=== PATIENT | female | born 1940 | race Caucasian/White ===

== ENCOUNTER → 2016-12-01 | Outpatient (CLI) | payer MEDICARE, OTHER ==
[~2016-12-01] MED LIST: ALPR0.254 PO; ALPR0.5T72 PO; ASP325TEC; ASP81TEC PO; CARV12.5; CARV20CP PO; CARV25TA PO; CARV40CP PO; CHOL10003 PO; CRESTOR40 MG PO; CYAN10007 PO; ERGO400C; ERGO400C PO; EST.1TD; EST.1TD TD; EST.1TD TOP; FENO145T; FENO145T2 PO; HYDR-3583 PO; INSU100C SQ; LISI40TA PO; LVT.025T PO; LVT.05T PO; MAGN250T7 PO; MPR22T TP; OMEG-12 PO; OMG1KC; POLY17PO23 GT; ROSU20TA14 PO; SITA50TA PO; TELM40T PO; TELM80TA5 PO; TRAM-21 PO; [UNRECOGNIZED DRUG - CODE]; [UNRECOGNIZED DRUG - OTHER]
--- NOTE | 2016-12-02 15:39 | Diagnostic Imaging Report ---
Bilateral screening mammogram 2D views with tomosynthesis. The current study was also evaluated with a Computer Aided Detection (CAD) system. INDICATION: Screening. No current complaints stated on the questionnaire. COMPARISON: 09/23/15. FINDINGS: The breasts are composed of heterogeneously dense parenchyma which may decrease mammographic sensitivity. There are benign-appearing calcifications seen. Allowing for technique and positional differences, no suspicious change is seen. IMPRESSION: No significant change. ACR BI-RADS Category 2: Benign findings. Result letter will be mailed to the patient. Note: At least 10% of breast cancer is not imaged by mammography. Dictated by: Dictated on workstation # [id number]
== END ==
LOC: RAD 09:31
PROVIDERS: ATTEND Nurse Practitioner Family
DX: Z12.31 Encounter for screening mammogram for malignant neoplasm of breast (principal)
CPT/HCPCS: 77067

== ENCOUNTER → 2017-06-11 | Outpatient (CLI) | payer MEDICARE, OTHER ==
--- NOTE | 2017-06-11 11:00 | Diagnostic Imaging Report ---
INDICATION: Back pain, falls. FINDINGS: Thoracic vertebral body heights are maintained, the alignment is anatomic. The marrow signal intensity unremarkable. The thoracic spinal cord has a normal volume, morphology, and signal intensity. Spinal canal is widely patent at all vertebral body and disc space levels. No paravertebral mass, hemorrhage or fluid collection. No evidence for ligamentous injury. Discs are well-hydrated and nondisplaced. IMPRESSION: Unremarkable MRI thoracic spine. Normal cord. There is no stenosis and there is no significant degenerative changes. Dictated by: Dictated on workstation # [id number]
--- NOTE | 2017-06-11 11:24 | Diagnostic Imaging Report ---
PROCEDURE: MRI lumbar spine. TECHNIQUE: Multiplanar, multisequence MRI of the lumbar spine was performed without contrast. INDICATION: Low back pain. History of falls and prior lumbar surgery. COMPARISON is made with a previous MRI from 12/11/2015 FINDINGS: When compared to the previous examination, the patient has undergone interval posterior lumbar interbody fusions of L4-5 and L5-S1. The interbody graft at the L5-S1 level is slightly posteriorly and laterally positioned and may extend into the right lateral recess. This would be better assessed with CT imaging. Alignment of the lumbar spine demonstrates a slight anterolisthesis of L4 on 5. Alignment is otherwise normal. The vertebral body heights are maintained. There is no focal marrow signal abnormality to suggest acute osseous injury or underlying osseous lesion. The lower thoracic cord demonstrates no signal abnormality or abnormal expansion. The conus terminates at the normal level. There is no significant lower thoracic canal stenosis. T12-L1 and L1-2 are unremarkable. At L2-3, there is very mild disc bulging. There is facet arthropathy and ligamentous thickening with minimal narrowing of the thecal sac and very slight effacement of the lateral recesses. There is mild narrowing of both neural foramen. At the L3-4 level, there is diffuse disc bulging. Facet arthropathy and ligamentous thickening are present. There is a small left-sided synovial cyst. There is moderate narrowing of the central canal and lateral recesses. There is mild narrowing of both neural foramen. At the L4-5 level, there is residual, left greater than right facet arthropathy and ligamentous thickening. There is mild narrowing of the central canal. There is [id number] left lateral recess stenosis. There is no significant foraminal stenosis. At the L5-S1 level, the right lateral recess is poorly visualized and appears to possibly be impinged upon by the interbody graft. There is no significant left lateral recess or central canal stenosis. There is moderate right and mild left neural foraminal stenosis. Paraspinal soft tissues demonstrate a small degree of a postoperative fluid in the right laminectomy bed at L5-S1. The aorta is normal in caliber. IMPRESSION: 1. Interval operative changes of posterior lumbar interbody fusions at L4-5 and L5-S1. There is a question of some posterior subsidence in the interbody graft at the L5-S1 level. Evaluation of the interbody grafts and their incorporation would be better assessed with CT imaging. This graft may impinge on the right lateral recess. 2. Grade 1 anterolisthesis of L4 on 5. Alignment is otherwise normal. There is no acute osseous abnormality. 3. There are developing adjacent level degenerative changes at L3-4. There is moderate narrowing of the central canal and lateral recesses. 4. Other degrees of stenosis within the lumbar spine are each detailed above, level by level. Dictated by: Dictated on workstation # [id number]
== END ==
LOC: RAD 09:22
PROVIDERS: ATTEND Neurological Surgery
DX: M48.07 Spinal stenosis, lumbosacral region (principal); M51.26 Other intervertebral disc displacement, lumbar region; M46.96 Unspecified inflammatory spondylopathy, lumbar region; M71.38 Other bursal cyst, other site; M47.816 Spondylosis without myelopathy or radiculopathy, lumbar region; M43.16 Spondylolisthesis, lumbar region; Z91.81 History of falling; Z98.1 Arthrodesis status
CPT/HCPCS: 72146; 72148

== ENCOUNTER → 2017-11-25 | Outpatient (CLI) | payer MEDICARE, OTHER ==
--- NOTE | 2017-11-25 11:48 | Diagnostic Imaging Report ---
INDICATION: Routine screening. COMPARISON: 12/01/2016 and 09/23/2015. TECHNIQUE: 2D and 3D bilateral screening mammography was performed with CAD. FINDINGS: Both breasts are heterogeneously dense, limiting the sensitivity of mammography. There are benign-appearing parenchymal and vascular calcifications bilaterally. No dominant mass or malignant appearing microcalcifications are seen. The axillae are unremarkable. IMPRESSION: No mammographic features suspicious for malignancy are identified. ACR BI-RADS Category 2: Benign findings. Result letter will be mailed to the patient. Note: At least 10% of breast cancer is not imaged by mammography. Dictated by: Dictated on workstation # [id number]
== END ==
LOC: RAD 08:54
PROVIDERS: ATTEND Family Medicine
DX: Z12.31 Encounter for screening mammogram for malignant neoplasm of breast (principal)
CPT/HCPCS: 77067

== ENCOUNTER 2018-11-03 13:19 | Emergency (ER) | payer MEDICARE, OTHER ==
[~2018-11-03] VITALS: Ht 157.5 cm; Wt 48.1 kg
[~2018-11-03 13:19] MED LIST changes: -RIVA15TA2 PO; -RIVA20TA PO
--- OUTSIDE RECORDS SUMMARY | 2018-11-03 13:25 | XMS REPORT | CCD ---
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 Name Role Phone PP Unavailable CCM Unavailable Summary Purpose Interface Exchange Insurance Providers Payer name Policy type / Coverage type Covered alliance party ID Effective Begin Date Effective End Date [employer] Medicare Part B [id number] Unknown Unknown WPS Medicare Part B Medicare Part B [id number] Unknown Unknown Family history Mother Diagnosis Age At Onset Heart Attack Unknown Son Diagnosis Age At Onset Cancer Unknown Social History Social History Element Codes Description Effective Dates Number of children Unknown 2 12/12/[address]: 529319706 Never smoker 12/12/[address]: 504873787 Never drinks alcohol 12/12/2014 Allergies, Adverse Reactions, Alerts Allergies, Adverse Reactions, Alerts data not found Past Medical History Illness Codes Condition Status Onset Date Resolved Date Anemia, unspecified ICD- 9: 285.9 ICD-10: D64.9 Active 11/23/2016 Unknown Encounter for screening mammogram for malignant neoplasm of breast ICD-9: V76.10 ICD-10: Z12.31 Active 11/18/2016 Unknown Essential (primary) hypertension ICD-9: 401.9 ICD-10: I10 Active 01/04/2016 Unknown Hypothyroidism, unspecified ICD-9: 244.9 ICD-10: E03.9 Active 01/04/2016 Unknown Type 2 diabetes mellitus with hyperglycemia ICD-9: 250.00 ICD-10: E11.65 Active 12/11/2014 Unknown Encounter for immunization ICD-9: V03.9 ICD-10: Z23 Active 01/04/2016 Unknown Encounter for screening mammogram for malignant neoplasm of breast ICD-9: V76.12 ICD-10: Z12.31 Active 09/11/2015 Unknown Hyperlipidemia, unspecified ICD-9: 272.4 ICD-10: E78.5 Active 09/11/2015 Unknown Major depressive disorder, single episode, unspecified ICD-9: 311 ICD-10: F32.9 Active 08/13/2015 Unknown Dysuria ICD-9: 788.1 ICD-10: R30.0 Active 07/30/2015 Unknown Depression Unknown Active 07/03/2015 Unknown Hyperlipidemia Unknown Active 06/26/2015 Unknown Hypertension Unknown Active 06/26/2015 Unknown Hypothryroidism Unknown Active 06/26/2015 Unknown Diabetes Unknown Active 12/12/2014 Unknown Diabetes mellitus ICD-9: 250.00 Active 12/11/2014 Unknown Insomnia ICD-9: 780.52 Active 12/11/2014 Unknown Right shoulder pain ICD- 9: 719.41 Active 12/11/2014 Unknown Sinus congestion ICD-9: 478.19 Active 12/11/2014 Unknown Problems Condition Codes Effective Dates Condition Status Anemia, unspecified ICD- 9: 285.9 ICD-10: D64.9 11/23/2016 Active Encounter for screening mammogram for malignant neoplasm of breast ICD-9: V76.10 ICD-10: Z12.31 11/18/2016 Active Essential (primary) hypertension ICD-9: 401.9 ICD-10: I10 01/04/2016 Active Hypothyroidism, unspecified ICD-9: 244.9 ICD-10: E03.9 01/04/2016 Active Type 2 diabetes mellitus with hyperglycemia ICD-9: 250.00 ICD-10: E11.65 12/11/2014 Active Encounter for immunization ICD-9: V03.9 ICD-10: Z23 01/04/2016 Active Encounter for screening mammogram for malignant neoplasm of breast ICD-9: V76.12 ICD-10: Z12.31 09/11/2015 Active Hyperlipidemia, unspecified ICD-9: 272.4 ICD-10: E78.5 09/11/2015 Active Major depressive disorder, single episode, unspecified ICD-9: 311 ICD-10: F32.9 08/13/2015 Active Dysuria ICD-9: 788.1 ICD-10: R30.0 07/30/2015 Active Depression Unknown 07/03/2015 Active Hyperlipidemia Unknown 06/26/2015 Active Hypertension Unknown 06/26/2015 Active Hypothryroidism Unknown 06/26/2015 Active Diabetes Unknown 12/12/2014 Active Diabetes mellitus ICD-9: 250.00 12/11/2014 Active Insomnia ICD-9: 780.52 12/11/2014 Active Right shoulder pain ICD- 9: 719.41 12/11/2014 Active Sinus congestion ICD-9: 478.19 12/11/2014 Active Medications Medication Codes Instructions Start Date Stop Date Status Fill Instructions glipizide 5 mg tablet RxNorm: 582986 1/2 Tablet(s) PO daily 11/18/2016 No Stop Date Active Synthroid 50 mcg tablet RxNorm: 654712 1 Tablet(s) PO daily 11/18/2016 11/12/2017 Active Lexapro 5 mg tablet RxNorm: 583572 TAKE 1 TABLET EVERY EVENING 08/03/2016 11/17/2016 Inactive alprazolam 0.5 mg tablet RxNorm: 671549 1 Tablet(s) PO BID as needed 04/12/2016 10/08/2016 Inactive Synthroid 50 mcg tablet RxNorm: 262370 1 Tablet(s) PO daily 04/12/2016 11/17/2016 Inactive Synthroid 50 mcg tablet RxNorm: 640081 1 Tablet(s) PO daily 04/09/2016 04/11/2016 Inactive Synthroid 50 mcg tablet RxNorm: 531906 1 Tablet(s) PO daily 01/05/2016 04/08/2016 Inactive Synthroid 50 mcg tablet RxNorm: 345467 1 Tablet(s) PO daily 01/05/2016 01/04/2016 Inactive alprazolam 0.5 mg tablet RxNorm: 594792 1 Tablet(s) PO BID as needed 01/05/2016 04/03/2016 Inactive alprazolam 0.5 mg tablet RxNorm: 979104 1 Tablet(s) PO BID as needed 09/12/2015 12/10/2015 Inactive Humalog 100 unit/mL subcutaneous solution RxNorm: 642352 Unit(s) SQ PRN 09/12/2015 12/11/2015 Inactive alprazolam 0.5 mg tablet RxNorm: 504695 1 Tablet(s) PO BID as needed 08/14/2015 09/11/2015 Inactive Cymbalta 30 mg capsule,delayed release RxNorm: 724205 1 Capsule(s) PO daily 08/14/2015 09/11/2015 Inactive Cymbalta 30 mg capsule,delayed release RxNorm: 492116 1 Capsule(s) PO daily 07/31/2015 08/13/2015 Inactive Trulicity 0.75 mg/0.5 mL subcutaneous pen injector RxNorm: 3472327 1/2 Milliliter(s) SQ QW 07/03/2015 08/13/2015 Inactive Synthroid 50 mcg tablet RxNorm: 834918 1 Tablet(s) PO daily 07/03/2015 01/04/2016 Inactive Lexapro 5 mg tablet RxNorm: 029154 1 Tablet(s) PO QPM 07/03/2015 08/13/2015 Inactive Climara 0.05 mg/24 hr transdermal patch RxNorm: 525946 1 Patch TD QW 07/03/2015 11/17/2016 Inactive Climara 0.05 mg/24 hr transdermal patch RxNorm: 845813 1 Patch TD QW 06/26/2015 06/25/2015 Inactive Climara 0.05 mg/24 hr transdermal patch RxNorm: 589114 1 Patch TD QW 06/26/2015 07/02/2015 Inactive metoprolol succinate ER 25 mg tablet,extended release 24 hr RxNorm: 027142 1 Tablet(s) PO daily 06/26/2015 06/26/2015 Inactive Humalog 100 unit/mL subcutaneous solution RxNorm: 738199 Unit(s) SQ PRN 02/03/2015 07/02/2015 Inactive Remeron 15 mg tablet RxNorm: 969770 1/2 Tablet(s) PO QHS 12/23/2014 06/25/2015 Inactive no refilled- direction change Remeron 15 mg tablet RxNorm: 566075 1 Tablet(s) PO QHS 12/18/2014 12/17/2014 Inactive Remeron 15 mg tablet RxNorm: 804370 1 Tablet(s) PO QHS 12/18/2014 12/22/2014 Inactive Flonase Allergy Relief 50 mcg/actuation nasal spray,suspension RxNorm: 2 [place] NASAL daily 12/12/2014 03/11/2015 Inactive aspirin 81 mg tablet RxNorm: 606915 1 Tablet(s) PO daily No Start Date Active fenofibrate nanocrystallized 145 mg tablet RxNorm: 461196 1 Tablet(s) PO daily No Start Date Active Coreg CR 20 mg capsule, extended release RxNorm: 256607 1 Capsule(s) PO daily No Start Date Active amlodipine 5 mg tablet RxNorm: 519317 1 Tablet(s) PO daily No Start Date Active lisinopril 40 mg tablet RxNorm: 654972 1 Tablet(s) PO daily No Start Date Active Crestor 20 mg tablet RxNorm: 951396 1 Tablet(s) PO daily No Start Date Active spironolactone 25 mg tablet RxNorm: 090205 1 Tablet(s) PO PRN No Start Date 12/13/2014 Inactive telmisartan 80 mg tablet RxNorm: 986652 1 Tablet(s) PO daily No Start Date 11/17/2016 Inactive Humalog 100 unit/mL subcutaneous solution RxNorm: 461135 Unit(s) SQ PRN No Start Date 02/02/2015 Inactive alprazolam 0.5 mg tablet RxNorm: 524399 1 Tablet(s) PO TID as needed No Start Date 08/13/2015 Inactive glipizide ER 2.5 mg tablet, extended release 24 hr RxNorm: 425259 1 Tablet(s) PO daily No Start Date 01/04/2016 Inactive Vitamin B-12 1,000 mcg/mL oral drops RxNorm: 9489778 1 Milliliter(s) PO daily Start once patient runs out of the 1,000 mcg tabs. No Start Date 11/17/2016 Inactive gabapentin 300 mg capsule RxNorm: 892359 1 Capsule(s) PO BID No Start Date 11/17/2016 Inactive meloxicam 15 mg tablet RxNorm: 952598 1 Tablet(s) PO BID No Start Date 07/30/2015 Inactive Coreg CR 20 mg capsule, extended release RxNorm: 704003 1 Capsule(s) PO daily No Start Date 06/25/2015 Inactive Climara 0.1 mg/24 hr transdermal patch RxNorm: 088724 1 TD QW No Start Date 06/25/2015 Inactive levothyroxine 50 mcg tablet RxNorm: 898548 1 Tablet(s) PO daily No Start Date 07/03/2015 Inactive Vitamin D2 1,000 unit capsule RxNorm: 287149 1 Capsule(s) PO daily No Start Date 11/17/2016 Inactive Fish Oil 1,000 mg capsule RxNorm: 1 Capsule(s) PO daily No Start Date 11/17/2016 Inactive glipizide 5 mg tablet RxNorm: 872008 1 Tablet(s) PO daily No Start Date 11/17/2016 Inactive Medication Administered No Medication Administered data Immunizations Vaccine Codes Date Status Pneumococcal (Adult) CVX: 133 01/05/2016 completed Influenza CVX: 141 02/06/2014 completed Assessments Condition Codes Effective Dates Anemia, unspecified ICD-10: D64.9 ICD-9: 285.9 11/23/2016 Type 2 diabetes mellitus with hyperglycemia ICD-10: E11.65 ICD-9: 250.00 11/18/2016 Hypothyroidism, unspecified ICD-10: E03.9 ICD-9: 244.9 11/18/2016 Essential (primary) hypertension ICD-10: I10 ICD-9: 401.9 11/18/2016 Encounter for screening mammogram for malignant neoplasm of breast ICD-10: Z12.31 ICD-9: V76.10 11/18/2016 Encounter for immunization ICD-10: Z23 ICD-9: V03.9 01/05/2016 Hyperlipidemia, unspecified ICD-10: E78.5 ICD-9: 272.4 09/12/2015 Encounter for screening mammogram for malignant neoplasm of breast ICD-10: Z12.31 ICD-9: V76.12 09/12/2015 Major depressive disorder, single episode, unspecified ICD-10: F32.9 ICD-9: 311 08/14/2015 Dysuria ICD-10: R30.0 ICD-9: 788.1 07/31/2015 Sinus congestion ICD-9: 478.19 12/12/2014 Diabetes mellitus ICD-9: 250.00 12/12/2014 Insomnia ICD-9: 780.52 12/12/2014 Right shoulder pain ICD-9: 719.41 12/12/2014 Reason For Visit Reason For Visit Effective Dates Notes diabetes mellitus 11/18/2016 diabetes mellitus 01/05/2016 diabetes mellitus 09/12/2015 medication follow up 08/14/2015 dysuria 07/31/2015 hyperlipidemia 07/03/2015 hyperlipidemia 06/26/2015 insomnia 12/12/2014 Results Observation Observation Code Item Item Code Result Date Ferritin Ord22 FERRITIN 58.6 ng/mL 11/23/2016 Tibc Ord40 Iron 92 ug/dl 11/23/2016 Tibc Ord40 UIBC 294 ug/dL 11/23/2016 Tibc Ord40 TIBC 386 ug/dL 11/23/2016 Tibc Ord40 Fe-%Sat 23.8 % 11/23/2016 B12 Osd024 B12 232.00 pg/ml 11/23/2016 Comp Metabolic Gdr710 NA 144 mEq/L 11/22/2016 Comp Metabolic Dyq135 K 4.8 mEq/L 11/22/2016 Comp Metabolic Cas249 CL 111 mEq/L 11/22/2016 Comp Metabolic Xpu263 CO2 26.0 mEq/L 11/22/2016 Comp Metabolic Cnk470 ANION GAP 12 11/22/2016 Comp Metabolic Tey199 GLUCOSE 111 mg/dL 11/22/2016 Comp Metabolic Dkv183 Creat 1.3 mg/dL 11/22/2016 Comp Metabolic Dcc870 eGFR 41 ml/min/1.73m2 11/22/2016 Comp Metabolic Dth218 BUN 38 mg/dL 11/22/2016 Comp Metabolic Mvj514 B/C Ratio 28.4 Ratio 11/22/2016 Comp Metabolic Mdo459 CALCIUM 10.0 mg/dL 11/22/2016 Comp Metabolic Lno518 ALK PHOS 43 U/L 11/22/2016 Comp Metabolic Ijy729 AST(SGOT) 10 U/L 11/22/2016 Comp Metabolic Fpr181 ALT(SGPT) 11 U/L 11/22/2016 Comp Metabolic Gmf661 BILI T 0.3 mg/dL 11/22/2016 Comp Metabolic Kjv710 ALBUMIN 3.8 g/dL 11/22/2016 Comp Metabolic Anz938 TPRO 6.1 g/dL 11/22/2016 Comp Metabolic Kip841 GLOB 2.3 g/dL 11/22/2016 Comp Metabolic Zgo686 A/G Ratio 1.7 Ratio 11/22/2016 Comp Metabolic Aim684 Osmo 297 mOsmo 11/22/2016 Cbc With Differential Ord2 WBC 5.20 K/ul 11/22/2016 Cbc With Differential Ord2 RBC 3.51 M/ul 11/22/2016 Cbc With Differential Ord2 HGB 11.1 g/dl 11/22/2016 Cbc With Differential Ord2 Neut% 34.2 % 11/22/2016 Cbc With Differential Ord2 HCT 34.9 % 11/22/2016 Cbc With Differential Ord2 Lymph% 47.3 % 11/22/2016 Cbc With Differential Ord2 MCV 99.4 fl 11/22/2016 Cbc With Differential Ord2 MCH 31.6 pg 11/22/2016 Cbc With Differential Ord2 Brooks% 10.4 % 11/22/2016 Cbc With Differential Ord2 Eos% 7.3 % 11/22/2016 Cbc With Differential Ord2 MCHC 31.8 pg 11/22/2016 Cbc With Differential Ord2 Baso% 0.8 % 11/22/2016 Cbc With Differential Ord2 PLT 313 K/ul 11/22/2016 Cbc With Differential Ord2 RDW 13.2 % 11/22/2016 Cbc With Differential Ord2 Neut ABS# 1.78 K/ul 11/22/2016 Cbc With Differential Ord2 Lymph ABS# 2.46 K/ul 11/22/2016 Cbc With Differential Ord2 Brooks ABS# 0.5 K/ul 11/22/2016 Cbc With Differential Ord2 Eos ABS# 0.4 K/ul 11/22/2016 Cbc With Differential Ord2 Baso ABS# 0.0 K/ul 11/22/2016 Lipid Ord30 CHOL 153 mg/dL 11/22/2016 Lipid Ord30 HDL 46.0 mg/dl 11/22/2016 Lipid Ord30 TRIG 150 mg/dL 11/22/2016 Lipid Ord30 LDL 77 mg/dL 11/22/2016 Lipid Ord30 C/HDL 3.3 Ratio 11/22/2016 %Hba1C Cdl747 % HbA1c 90309- 6 6.7 % 11/22/2016 %Hba1C Smi733 Gluc Ave 146 mg/dL 11/22/2016 Tsh Ord6 hTSH II 1.84 uIU/mL 11/22/2016 Free T4 Dlg391 FREE T4 1.00 ng/dL 11/22/2016 %Hba1C Ovc876 % HbA1c 38860- 6 7.3 % 09/24/2015 %Hba1C Urz104 Gluc Ave 163 mg/dL 09/24/2015 Cbc With Differential Ord2 WBC 6.31 K/ul 09/24/2015 Cbc With Differential Ord2 RBC 3.54 M/ul 09/24/2015 Cbc With Differential Ord2 HGB 11.2 g/dl 09/24/2015 Cbc With Differential Ord2 Neut% 40.2 % 09/24/2015 Cbc With Differential Ord2 HCT 34.9 % 09/24/2015 Cbc With Differential Ord2 MCV 98.6 fl 09/24/2015 Cbc With Differential Ord2 Lymph% 42.2 % 09/24/2015 Cbc With Differential Ord2 MCH 31.6 pg 09/24/2015 Cbc With Differential Ord2 Brooks% 10.1 % 09/24/2015 Cbc With Differential Ord2 MCHC 32.1 pg 09/24/2015 Cbc With Differential Ord2 Eos% 6.5 % 09/24/2015 Cbc With Differential Ord2 PLT 314 K/ul 09/24/2015 Cbc With Differential Ord2 Baso% 1.0 % 09/24/2015 Cbc With Differential Ord2 RDW 13.2 % 09/24/2015 Cbc With Differential Ord2 Neut ABS# 2.54 K/ul 09/24/2015 Cbc With Differential Ord2 Lymph ABS# 2.66 K/ul 09/24/2015 Cbc With Differential Ord2 Brooks ABS# 0.6 K/ul 09/24/2015 Cbc With Differential Ord2 Eos ABS# 0.4 K/ul 09/24/2015 Cbc With Differential Ord2 Baso ABS# 0.1 K/ul 09/24/2015 Cbc With Differential Ord2 New Analyzer Notice Please note new ref ranges starting 05-21-2015 due to implemntation of new five part differential hematolgy analyzer. 09/24/2015 Metabolic Ord15 NA 138 mEq/L 09/24/2015 Metabolic Ord15 K 4.6 mEq/L 09/24/2015 Metabolic Ord15 CL 105 mEq/L 09/24/2015 Metabolic Ord15 CO2 28.0 mEq/L 09/24/2015 Metabolic Ord15 GLUCOSE 130 mg/dL 09/24/2015 Metabolic Ord15 BUN 31 mg/dL 09/24/2015 Metabolic Ord15 Creat 1.2 mg/dL 09/24/2015 Metabolic Ord15 B/C Ratio 26.7 Ratio 09/24/2015 Metabolic Ord15 eGFR 48 ml/min/1.73m2 09/24/2015 Metabolic Ord15 Osmo 284 mOsmo 09/24/2015 Metabolic Ord15 ANION GAP 10 09/24/2015 Metabolic Ord15 CALCIUM 9.8 mg/dL 09/24/2015 Lipid Ord30 CHOL 177 mg/dL 09/12/2015 Lipid Ord30 HDL 56.0 mg/dl 09/12/2015 Lipid Ord30 TRIG 132 mg/dL 09/12/2015 Lipid Ord30 LDL 95 mg/dL 09/12/2015 Lipid Ord30 C/HDL 3.2 Ratio 09/12/2015 Hepatic Qcs821 ALBUMIN 4.2 g/dL 09/12/2015 Hepatic Kwu367 TPRO 6.5 g/dL 09/12/2015 Hepatic Izm629 GLOB 2.3 g/dL 09/12/2015 Hepatic Ydv119 A/G Ratio 1.8 Ratio 09/12/2015 Hepatic Prq794 ALK PHOS 33 U/L 09/12/2015 Hepatic Edv121 ALT(SGPT) 27 U/L 09/12/2015 Hepatic Fbn329 AST(SGOT) 14 U/L 09/12/2015 Hepatic Vvk275 BILI T 0.3 mg/dL 09/12/2015 Hepatic Idk256 BILI D 0.1 mg/dL 09/12/2015 Hepatic Bab211 BILI I 0.2 mg/dL 09/12/2015 Review of Systems System Result Effective Dates Musculoskeletal back pain 11/18/2016 Constitutional No recent illness 11/18/2016 Constitutional anorexia 11/18/2016 Constitutional No night sweats 11/18/2016 Constitutional No chills 11/18/2016 Constitutional No diaphoresis 11/18/2016 Constitutional No fatigue 11/18/2016 Constitutional No fever 11/18/2016 Constitutional No insomnia 11/18/2016 Constitutional No malaise 11/18/2016 Constitutional No weight loss 11/18/2016 Constitutional No weight gain 11/18/2016 Eyes No eye discharge 11/18/2016 Eyes No eye erythema 11/18/2016 Ears/Nose/Throat/Neck No dizziness 11/18/2016 Ears/Nose/Throat/Neck No headache 11/18/2016 Cardiovascular No chest pain/pressure 11/18/2016 Respiratory No productive sputum 11/18/2016 Respiratory No cough 11/18/2016 Gastrointestinal No abdominal pain 11/18/2016 Gastrointestinal No constipation 11/18/2016 Gastrointestinal No diarrhea 11/18/2016 Genitourinary/Nephrology No dysuria 11/18/2016 Dermatologic No rash 11/18/2016 Neurologic No alteration of consciousness 11/18/2016 Constitutional No recent illness 01/05/2016 Constitutional No anorexia 01/05/2016 Constitutional No night sweats 01/05/2016 Constitutional No chills 01/05/2016 Constitutional No fatigue 01/05/2016 Constitutional No diaphoresis 01/05/2016 Constitutional No fever 01/05/2016 Constitutional No insomnia 01/05/2016 Constitutional No malaise 01/05/2016 Constitutional No weight loss 01/05/2016 Musculoskeletal back pain 01/05/2016 Eyes No eye discharge 01/05/2016 Eyes No eye erythema 01/05/2016 Ears/Nose/Throat/Neck No dizziness 01/05/2016 Ears/Nose/Throat/Neck No headache 01/05/2016 Cardiovascular No chest pain/pressure 01/05/2016 Cardiovascular No edema 01/05/2016 Respiratory No productive sputum 01/05/2016 Respiratory No cough 01/05/2016 Gastrointestinal No abdominal pain 01/05/2016 Gastrointestinal No constipation 01/05/2016 Gastrointestinal No diarrhea 01/05/2016 Genitourinary/Nephrology No dysuria 01/05/2016 Dermatologic No rash 01/05/2016 Dermatologic No sores 01/05/2016 Neurologic No alteration of consciousness 01/05/2016 Psychiatric depression 01/05/2016 Endocrine No dry or coarse skin 01/05/2016 Constitutional No recent illness 09/12/2015 Constitutional No anorexia 09/12/2015 Constitutional No night sweats 09/12/2015 Constitutional No chills 09/12/2015 Constitutional No diaphoresis 09/12/2015 Constitutional fatigue 09/12/2015 Constitutional No fever 09/12/2015 Constitutional No insomnia 09/12/2015 Constitutional No malaise 09/12/2015 Constitutional No weight loss 09/12/2015 Constitutional No weight gain 09/12/2015 Constitutional No obesity 09/12/2015 Ears/Nose/Throat/Neck No headache 09/12/2015 Ears/Nose/Throat/Neck No nasal allergies 09/12/2015 Ears/Nose/Throat/Neck No nasal discharge 09/12/2015 Ears/Nose/Throat/Neck No otalgia 09/12/2015 Ears/Nose/Throat/Neck No otitis media 09/12/2015 Cardiovascular No chest pain/pressure 09/12/2015 Respiratory No chest congestion 09/12/2015 Respiratory No chest tightness 09/12/2015 Respiratory No cigarette smoking 09/12/2015 Respiratory No cough 09/12/2015 Respiratory No dyspnea on exertion 09/12/2015 Respiratory No dyspnea 09/12/2015 Gastrointestinal No constipation 09/12/2015 Gastrointestinal No diarrhea 09/12/2015 Genitourinary/Nephrology No dysuria 09/12/2015 Genitourinary/Nephrology No flank pain 09/12/2015 Genitourinary/Nephrology No hematuria 09/12/2015 Musculoskeletal No joint complaint 09/12/2015 Musculoskeletal No muscle weakness 09/12/2015 Musculoskeletal No myalgias 09/12/2015 Dermatologic No rash 09/12/2015 Dermatologic No sores 09/12/2015 Psychiatric anxiety 09/12/2015 Psychiatric depression 09/12/2015 Constitutional No recent illness 08/14/2015 Constitutional No anorexia 08/14/2015 Constitutional No night sweats 08/14/2015 Constitutional No chills 08/14/2015 Constitutional No diaphoresis 08/14/2015 Constitutional fatigue 08/14/2015 Constitutional No fever 08/14/2015 Constitutional No insomnia 08/14/2015 Constitutional No malaise 08/14/2015 Constitutional No weight loss 08/14/2015 Constitutional No weight gain 08/14/2015 Constitutional No obesity 08/14/2015 Ears/Nose/Throat/Neck No headache 08/14/2015 Ears/Nose/Throat/Neck No nasal allergies 08/14/2015 Ears/Nose/Throat/Neck No nasal discharge 08/14/2015 Ears/Nose/Throat/Neck No otalgia 08/14/2015 Ears/Nose/Throat/Neck No otitis media 08/14/2015 Cardiovascular No chest pain/pressure 08/14/2015 Respiratory No chest congestion 08/14/2015 Respiratory No chest tightness 08/14/2015 Respiratory No cigarette smoking 08/14/2015 Respiratory No cough 08/14/2015 Respiratory No dyspnea on exertion 08/14/2015 Respiratory No dyspnea 08/14/2015 Gastrointestinal No constipation 08/14/2015 Gastrointestinal No diarrhea 08/14/2015 Genitourinary/Nephrology No dysuria 08/14/2015 Genitourinary/Nephrology No flank pain 08/14/2015 Genitourinary/Nephrology No hematuria 08/14/2015 Musculoskeletal No joint complaint 08/14/2015 Musculoskeletal No muscle weakness 08/14/2015 Musculoskeletal No myalgias 08/14/2015 Dermatologic No rash 08/14/2015 Dermatologic No sores 08/14/2015 Psychiatric anxiety 08/14/2015 Psychiatric depression 08/14/2015 Constitutional No recent illness 07/31/2015 Constitutional No anorexia 07/31/2015 Constitutional No night sweats 07/31/2015 Constitutional No chills 07/31/2015 Constitutional No diaphoresis 07/31/2015 Constitutional fatigue 07/31/2015 Constitutional No fever 07/31/2015 Constitutional No insomnia 07/31/2015 Constitutional No malaise 07/31/2015 Constitutional No weight loss 07/31/2015 Constitutional No weight gain 07/31/2015 Constitutional No obesity 07/31/2015 Genitourinary/Nephrology dysuria 07/31/2015 Genitourinary/Nephrology No flank pain 07/31/2015 Genitourinary/Nephrology No hematuria 07/31/2015 Gastrointestinal No constipation 07/31/2015 Gastrointestinal No diarrhea 07/31/2015 Respiratory No cigarette smoking 07/31/2015 Respiratory No cough 07/31/2015 Respiratory No chest tightness 07/31/2015 Respiratory No chest congestion 07/31/2015 Respiratory No dyspnea on exertion 07/31/2015 Respiratory No dyspnea 07/31/2015 Cardiovascular No chest pain/pressure 07/31/2015 Ears/Nose/Throat/Neck No nasal discharge 07/31/2015 Ears/Nose/Throat/Neck No nasal allergies 07/31/2015 Ears/Nose/Throat/Neck No headache 07/31/2015 Ears/Nose/Throat/Neck No otitis media 07/31/2015 Ears/Nose/Throat/Neck No otalgia 07/31/2015 Eyes vision change 07/31/2015 Musculoskeletal No joint complaint 07/31/2015 Musculoskeletal No muscle weakness 07/31/2015 Musculoskeletal No myalgias 07/31/2015 Dermatologic No sores 07/31/2015 Dermatologic No rash 07/31/2015 Psychiatric anxiety 07/31/2015 Psychiatric depression 07/31/2015 Constitutional No recent illness 07/03/2015 Constitutional No anorexia 07/03/2015 Constitutional No night sweats 07/03/2015 Constitutional No chills 07/03/2015 Constitutional No diaphoresis 07/03/2015 Constitutional No fatigue 07/03/2015 Constitutional No fever 07/03/2015 Constitutional No insomnia 07/03/2015 Constitutional No malaise 07/03/2015 Constitutional No weight loss 07/03/2015 Constitutional No weight gain 07/03/2015 Constitutional No obesity 07/03/2015 Eyes No eye discharge 07/03/2015 Eyes No eye erythema 07/03/2015 Psychiatric depression 07/03/2015 Psychiatric anxiety 07/03/2015 Neurologic No alteration of consciousness 07/03/2015 Dermatologic No rash 07/03/2015 Musculoskeletal back pain 07/03/2015 Genitourinary/Nephrology No dysuria 07/03/2015 Gastrointestinal No abdominal pain 07/03/2015 Respiratory No cough 07/03/2015 Cardiovascular No chest pain/pressure 07/03/2015 Ears/Nose/Throat/Neck No dizziness 07/03/2015 Constitutional No recent illness 06/26/2015 Constitutional No anorexia 06/26/2015 Constitutional No night sweats 06/26/2015 Constitutional No chills 06/26/2015 Constitutional No diaphoresis 06/26/2015 Constitutional No fatigue 06/26/2015 Constitutional No fever 06/26/2015 Constitutional No insomnia 06/26/2015 Constitutional No malaise 06/26/2015 Constitutional No weight loss 06/26/2015 Constitutional No weight gain 06/26/2015 Eyes No eye discharge 06/26/2015 Eyes No eye erythema 06/26/2015 Ears/Nose/Throat/Neck No dizziness 06/26/2015 Ears/Nose/Throat/Neck No headache 06/26/2015 Cardiovascular No chest pain/pressure 06/26/2015 Cardiovascular No dyspnea 06/26/2015 Cardiovascular No edema 06/26/2015 Respiratory No productive sputum 06/26/2015 Respiratory No cough 06/26/2015 Gastrointestinal No abdominal pain 06/26/2015 Gastrointestinal No diarrhea 06/26/2015 Gastrointestinal No constipation 06/26/2015 Genitourinary/Nephrology urinary incontinence 06/26/2015 Genitourinary/Nephrology urinary urgency 06/26/2015 Musculoskeletal back pain 06/26/2015 Dermatologic No rash 06/26/2015 Dermatologic No sores 06/26/2015 Neurologic No alteration of consciousness 06/26/2015 Psychiatric anxiety 06/26/2015 Endocrine No dry or coarse skin 06/26/2015 Allergy/Immunology No food allergy 06/26/2015 Constitutional No recent illness 12/12/2014 Constitutional insomnia 12/12/2014 Eyes No vision change 12/12/2014 Eyes No photophobia 12/12/2014 Ears/Nose/Throat/Neck No headache 12/12/2014 Ears/Nose/Throat/Neck sinus congestion 12/12/2014 Ears/Nose/Throat/Neck hoarseness 12/12/2014 Cardiovascular No chest pain/pressure 12/12/2014 Cardiovascular No dyspnea 12/12/2014 Cardiovascular No edema 12/12/2014 Respiratory No cough 12/12/2014 Respiratory No cigarette smoking 12/12/2014 Gastrointestinal No abdominal pain 12/12/2014 Gastrointestinal No constipation 12/12/2014 Gastrointestinal No diarrhea 12/12/2014 Gastrointestinal No vomiting 12/12/2014 Gastrointestinal No nausea 12/12/2014 Genitourinary/Nephrology No dysuria 12/12/2014 Genitourinary/Nephrology No hematuria 12/12/2014 Musculoskeletal stiffness 12/12/2014 Musculoskeletal No swelling 12/12/2014 Musculoskeletal No back pain 12/12/2014 Musculoskeletal No muscle weakness 12/12/2014 Dermatologic No rash 12/12/2014 Dermatologic No sores 12/12/2014 Neurologic No gait abnormality 12/12/2014 Neurologic No dizziness 12/12/2014 Neurologic No hearing loss 12/12/2014 Psychiatric No anxiety 12/12/2014 Psychiatric No depression 12/12/2014 Constitutional anorexia 12/12/2014 Constitutional No night sweats 12/12/2014 Constitutional No chills 12/12/2014 Constitutional No diaphoresis 12/12/2014 Constitutional No fatigue 12/12/2014 Constitutional No fever 12/12/2014 Physical Exam Exam Name System Name Item Name Status Result Effective Dates Notes Full Exam - General 1994 Constitutional general appearance Development: appears younger than stated age 0711/18/2016 None Full Exam - General 1994 Constitutional general appearance Overall: well developed 11/18/2016 None Full Exam - General 1994 Constitutional general appearance Overall: in no acute distress 11/18/2016 None Full Exam - General 1994 Constitutional general appearance Overall: well nourished 11/18/2016 None Full Exam - General 1994 Constitutional general appearance Nourishment: thin 11/18/2016 None Full Exam - General 1994 Eyes conjunctiva/eyelids Overall: conjunctiva clear 11/18/2016 None Full Exam - General 1994 Eyes conjunctiva/eyelids Overall: cornea clear 11/18/2016 None Full Exam - General 1994 Eyes conjunctiva/eyelids Overall: eyelids normal 11/18/2016 None Full Exam - General 1994 Eyes pupils and irises Overall: pupils equal, round, reactive to light and accomodation 11/18/2016 None Full Exam - General 1994 Ears/Nose/Throat otoscopic exam Overall: external auditory canals clear 11/18/2016 None Full Exam - General 1994 Ears/Nose/Throat otoscopic exam Overall: tympanic membranes clear 11/18/2016 None Full Exam - General 1994 Ears/Nose/Throat lips/teeth/gingiva Overall: benign lips 11/18/2016 None Full Exam - General 1994 Ears/Nose/Throat lips/teeth/gingiva Overall: normal dentition 11/18/2016 None Full Exam - General 1994 Ears/Nose/Throat lips/teeth/gingiva Overall: benign gingiva 11/18/2016 None Full Exam - General 1994 Ears/Nose/Throat lips/teeth/gingiva Overall: no masses 11/18/2016 None Full Exam - General 1994 Ears/Nose/Throat oral cavity/pharynx/larynx Overall: oral mucosa clear 11/18/2016 None Full Exam - General 1994 Ears/Nose/Throat oral cavity/pharynx/larynx Overall: oropharyngeal mucosa clear 11/18/2016 None Full Exam - General 1994 Ears/Nose/Throat oral cavity/pharynx/larynx Overall: no masses 11/18/2016 None Full Exam - General 1994 Respiratory auscultation Overall: breath sounds clear bilaterally 11/18/2016 None Full Exam - General 1994 Respiratory respiratory effort/rhythm Overall: no retractions 11/18/2016 None Full Exam - General 1994 Respiratory respiratory effort/rhythm Overall: normal rate 11/18/2016 None Full Exam - General 1994 Cardiovascular extremities Overall: no clubbing 11/18/2016 None Full Exam - General 1994 Cardiovascular auscultation of heart Overall: regular rate 11/18/2016 None Full Exam - General 1994 Cardiovascular auscultation of heart Overall: normal heart sounds 11/18/2016 None Full Exam - General 1994 Cardiovascular auscultation of heart Overall: no murmurs 11/18/2016 None Full Exam - General 1994 Abdomen abdominal exam Overall: no tenderness 11/18/2016 None Full Exam - General 1994 Abdomen abdominal exam Overall: normal bowel sounds 11/18/2016 None Full Exam - General 1994 Musculoskeletal gait and station Overall: normal gait 11/18/2016 None Full Exam - General 1994 Musculoskeletal gait and station Overall: normal station 11/18/2016 None Full Exam - General 1994 Integument inspection of skin Overall: no rash, lesions 11/18/2016 None Full Exam - General 1994 Psychiatric orientation/consciousness Overall: oriented to person, place and time 11/18/2016 None Full Exam - General 1994 Psychiatric mood and affect Overall: normal mood and affect 11/18/2016 None Full Exam - General 1994 Psychiatric appearance Overall: well-groomed, good eye contact 11/18/2016 None Full Exam - General 1994 Constitutional general appearance Development: appears younger than stated age 0801/05/2016 None Full Exam - General 1994 Constitutional general appearance Overall: well developed 01/05/2016 None Full Exam - General 1994 Constitutional general appearance Overall: in no acute distress 01/05/2016 None Full Exam - General 1994 Constitutional general appearance Overall: well nourished 01/05/2016 None Full Exam - General 1994 Constitutional general appearance Nourishment: thin 01/05/2016 None Full Exam - General 1994 Eyes conjunctiva/eyelids Overall: conjunctiva clear 01/05/2016 None Full Exam - General 1994 Eyes conjunctiva/eyelids Overall: cornea clear 01/05/2016 None Full Exam - General 1994 Eyes conjunctiva/eyelids Overall: eyelids normal 01/05/2016 None Full Exam - General 1994 Eyes pupils and irises Overall: pupils equal, round, reactive to light and accomodation 01/05/2016 None Full Exam - General 1994 Ears/Nose/Throat otoscopic exam Overall: external auditory canals clear 01/05/2016 None Full Exam - General 1994 Ears/Nose/Throat otoscopic exam Overall: tympanic membranes clear 01/05/2016 None Full Exam - General 1994 Ears/Nose/Throat lips/teeth/gingiva Overall: benign lips 01/05/2016 None Full Exam - General 1994 Ears/Nose/Throat lips/teeth/gingiva Overall: normal dentition 01/05/2016 None Full Exam - General 1994 Ears/Nose/Throat lips/teeth/gingiva Overall: benign gingiva 01/05/2016 None Full Exam - General 1994 Ears/Nose/Throat lips/teeth/gingiva Overall: no masses 01/05/2016 None Full Exam - General 1994 Ears/Nose/Throat oral cavity/pharynx/larynx Overall: oral mucosa clear 01/05/2016 None Full Exam - General 1994 Ears/Nose/Throat oral cavity/pharynx/larynx Overall: oropharyngeal mucosa clear 01/05/2016 None Full Exam - General 1994 Ears/Nose/Throat oral cavity/pharynx/larynx Overall: no masses 01/05/2016 None Full Exam - General 1994 Respiratory auscultation Overall: breath sounds clear bilaterally 01/05/2016 None Full Exam - General 1994 Respiratory respiratory effort/rhythm Overall: no retractions 01/05/2016 None Full Exam - General 1994 Respiratory respiratory effort/rhythm Overall: normal rate 01/05/2016 None Full Exam - General 1994 Cardiovascular extremities Overall: no clubbing 01/05/2016 None Full Exam - General 1994 Cardiovascular auscultation of heart Overall: regular rate 01/05/2016 None Full Exam - General 1994 Cardiovascular auscultation of heart Overall: normal heart sounds 01/05/2016 None Full Exam - General 1994 Cardiovascular auscultation of heart Overall: no murmurs 01/05/2016 None Full Exam - General 1994 Abdomen abdominal exam Overall: no tenderness 01/05/2016 None Full Exam - General 1994 Abdomen abdominal exam Overall: normal bowel sounds 01/05/2016 None Full Exam - General 1994 Musculoskeletal gait and station Overall: normal gait 01/05/2016 None Full Exam - General 1994 Musculoskeletal gait and station Overall: normal station 01/05/2016 None Full Exam - General 1994 Integument inspection of skin Overall: no rash, lesions 01/05/2016 None Full Exam - General 1994 Psychiatric orientation/consciousness Overall: oriented to person, place and time 01/05/2016 None Full Exam - General 1994 Psychiatric mood and affect Overall: normal mood and affect 01/05/2016 None Full Exam - General 1994 Psychiatric appearance Overall: well-groomed, good eye contact 01/05/2016 None Full Exam - General 1994 Constitutional general appearance Development: appears younger than stated age 0509/12/2015 None Full Exam - General 1994 Constitutional general appearance Overall: well developed 09/12/2015 None Full Exam - General 1994 Constitutional general appearance Overall: in no acute distress 09/12/2015 None Full Exam - General 1994 Constitutional general appearance Overall: well nourished 09/12/2015 None Full Exam - General 1994 Constitutional general appearance Nourishment: thin 09/12/2015 None Full Exam - General 1994 Eyes conjunctiva/eyelids Overall: conjunctiva clear 09/12/2015 None Full Exam - General 1994 Eyes conjunctiva/eyelids Overall: cornea clear 09/12/2015 None Full Exam - General 1994 Eyes conjunctiva/eyelids Overall: eyelids normal 09/12/2015 None Full Exam - General 1994 Eyes pupils and irises Overall: pupils equal, round, reactive to light and accomodation 09/12/2015 None Full Exam - General 1994 Ears/Nose/Throat otoscopic exam Overall: external auditory canals clear 09/12/2015 None Full Exam - General 1994 Ears/Nose/Throat otoscopic exam Overall: tympanic membranes clear 09/12/2015 None Full Exam - General 1994 Ears/Nose/Throat lips/teeth/gingiva Overall: benign lips 09/12/2015 None Full Exam - General 1994 Ears/Nose/Throat lips/teeth/gingiva Overall: normal dentition 09/12/2015 None Full Exam - General 1994 Ears/Nose/Throat lips/teeth/gingiva Overall: benign gingiva 09/12/2015 None Full Exam - General 1994 Ears/Nose/Throat lips/teeth/gingiva Overall: no masses 09/12/2015 None Full Exam - General 1994 Ears/Nose/Throat oral cavity/pharynx/larynx Overall: oral mucosa clear 09/12/2015 None Full Exam - General 1994 Ears/Nose/Throat oral cavity/pharynx/larynx Overall: oropharyngeal mucosa clear 09/12/2015 None Full Exam - General 1994 Ears/Nose/Throat oral cavity/pharynx/larynx Overall: no masses 09/12/2015 None Full Exam - General 1994 Respiratory auscultation Overall: breath sounds clear bilaterally 09/12/2015 None Full Exam - General 1994 Respiratory respiratory effort/rhythm Overall: no retractions 09/12/2015 None Full Exam - General 1994 Respiratory respiratory effort/rhythm Overall: normal rate 09/12/2015 None Full Exam - General 1994 Cardiovascular extremities Overall: no clubbing 09/12/2015 None Full Exam - General 1994 Cardiovascular auscultation of heart Overall: regular rate 09/12/2015 None Full Exam - General 1994 Cardiovascular auscultation of heart Overall: normal heart sounds 09/12/2015 None Full Exam - General 1994 Cardiovascular auscultation of heart Overall: no murmurs 09/12/2015 None Full Exam - General 1994 Abdomen abdominal exam Overall: no tenderness 09/12/2015 None Full Exam - General 1994 Abdomen abdominal exam Overall: normal bowel sounds 09/12/2015 None Full Exam - General 1994 Musculoskeletal gait and station Overall: normal gait 09/12/2015 None Full Exam - General 1994 Musculoskeletal gait and station Overall: normal station 09/12/2015 None Full Exam - General 1994 Integument inspection of skin Overall: no rash, lesions 09/12/2015 None Full Exam - General 1994 Psychiatric orientation/consciousness Overall: oriented to person, place and time 09/12/2015 None Full Exam - General 1994 Psychiatric mood and affect Overall: normal mood and affect 09/12/2015 None Full Exam - General 1994 Psychiatric appearance Overall: well-groomed, good eye contact 09/12/2015 None Full Exam - General 1994 Constitutional general appearance Development: appears younger than stated age 0408/14/2015 None Full Exam - General 1994 Constitutional general appearance Overall: well developed 08/14/2015 None Full Exam - General 1994 Constitutional general appearance Overall: in no acute distress 08/14/2015 None Full Exam - General 1994 Constitutional general appearance Overall: well nourished 08/14/2015 None Full Exam - General 1994 Constitutional general appearance Nourishment: thin 08/14/2015 None Full Exam - General 1994 Eyes conjunctiva/eyelids Overall: conjunctiva clear 08/14/2015 None Full Exam - General 1994 Eyes conjunctiva/eyelids Overall: cornea clear 08/14/2015 None Full Exam - General 1994 Eyes conjunctiva/eyelids Overall: eyelids normal 08/14/2015 None Full Exam - General 1994 Eyes pupils and irises Overall: pupils equal, round, reactive to light and accomodation 08/14/2015 None Full Exam - General 1994 Ears/Nose/Throat otoscopic exam Overall: external auditory canals clear 08/14/2015 None Full Exam - General 1994 Ears/Nose/Throat otoscopic exam Overall: tympanic membranes clear 08/14/2015 None Full Exam - General 1994 Ears/Nose/Throat lips/teeth/gingiva Overall: benign lips 08/14/2015 None Full Exam - General 1994 Ears/Nose/Throat lips/teeth/gingiva Overall: normal dentition 08/14/2015 None Full Exam - General 1994 Ears/Nose/Throat lips/teeth/gingiva Overall: benign gingiva 08/14/2015 None Full Exam - General 1994 Ears/Nose/Throat lips/teeth/gingiva Overall: no masses 08/14/2015 None Full Exam - General 1994 Ears/Nose/Throat oral cavity/pharynx/larynx Overall: oral mucosa clear 08/14/2015 None Full Exam - General 1994 Ears/Nose/Throat oral cavity/pharynx/larynx Overall: oropharyngeal mucosa clear 08/14/2015 None Full Exam - General 1994 Ears/Nose/Throat oral cavity/pharynx/larynx Overall: no masses 08/14/2015 None Full Exam - General 1994 Respiratory auscultation Overall: breath sounds clear bilaterally 08/14/2015 None Full Exam - General 1994 Respiratory respiratory effort/rhythm Overall: no retractions 08/14/2015 None Full Exam - General 1994 Respiratory respiratory effort/rhythm Overall: normal rate 08/14/2015 None Full Exam - General 1994 Cardiovascular extremities Overall: no clubbing 08/14/2015 None Full Exam - General 1994 Cardiovascular auscultation of heart Overall: regular rate 08/14/2015 None Full Exam - General 1994 Cardiovascular auscultation of heart Overall: normal heart sounds 08/14/2015 None Full Exam - General 1994 Cardiovascular auscultation of heart Overall: no murmurs 08/14/2015 None Full Exam - General 1994 Abdomen abdominal exam Overall: no tenderness 08/14/2015 None Full Exam - General 1994 Abdomen abdominal exam Overall: normal bowel sounds 08/14/2015 None Full Exam - General 1994 Musculoskeletal gait and station Overall: normal gait 08/14/2015 None Full Exam - General 1994 Musculoskeletal gait and station Overall: normal station 08/14/2015 None Full Exam - General 1994 Integument inspection of skin Overall: no rash, lesions 08/14/2015 None Full Exam - General 1994 Psychiatric orientation/consciousness Overall: oriented to person, place and time 08/14/2015 None Full Exam - General 1994 Psychiatric mood and affect Overall: normal mood and affect 08/14/2015 None Full Exam - General 1994 Psychiatric appearance Overall: well-groomed, good eye contact 08/14/2015 None Full Exam - General 1994 Constitutional general appearance Development: appears younger than stated age 0307/31/2015 None Full Exam - General 1994 Constitutional general appearance Overall: well developed 07/31/2015 None Full Exam - General 1994 Constitutional general appearance Overall: in no acute distress 07/31/2015 None Full Exam - General 1994 Constitutional general appearance Overall: well nourished 07/31/2015 None Full Exam - General 1994 Constitutional general appearance Nourishment: thin 07/31/2015 None Full Exam - General 1994 Eyes conjunctiva/eyelids Overall: conjunctiva clear 07/31/2015 None Full Exam - General 1994 Eyes conjunctiva/eyelids Overall: cornea clear 07/31/2015 None Full Exam - General 1994 Eyes conjunctiva/eyelids Overall: eyelids normal 07/31/2015 None Full Exam - General 1994 Eyes pupils and irises Overall: pupils equal, round, reactive to light and accomodation 07/31/2015 None Full Exam - General 1994 Ears/Nose/Throat otoscopic exam Overall: external auditory canals clear 07/31/2015 None Full Exam - General 1994 Ears/Nose/Throat otoscopic exam Overall: tympanic membranes clear 07/31/2015 None Full Exam - General 1994 Ears/Nose/Throat lips/teeth/gingiva Overall: benign lips 07/31/2015 None Full Exam - General 1994 Ears/Nose/Throat lips/teeth/gingiva Overall: normal dentition 07/31/2015 None Full Exam - General 1994 Ears/Nose/Throat lips/teeth/gingiva Overall: benign gingiva 07/31/2015 None Full Exam - General 1994 Ears/Nose/Throat lips/teeth/gingiva Overall: no masses 07/31/2015 None Full Exam - General 1994 Ears/Nose/Throat oral cavity/pharynx/larynx Overall: oral mucosa clear 07/31/2015 None Full Exam - General 1994 Ears/Nose/Throat oral cavity/pharynx/larynx Overall: oropharyngeal mucosa clear 07/31/2015 None Full Exam - General 1994 Ears/Nose/Throat oral cavity/pharynx/larynx Overall: no masses 07/31/2015 None Full Exam - General 1994 Respiratory auscultation Overall: breath sounds clear bilaterally 07/31/2015 None Full Exam - General 1994 Respiratory respiratory effort/rhythm Overall: no retractions 07/31/2015 None Full Exam - General 1994 Respiratory respiratory effort/rhythm Overall: normal rate 07/31/2015 None Full Exam - General 1994 Cardiovascular extremities Overall: no clubbing 07/31/2015 None Full Exam - General 1994 Cardiovascular auscultation of heart Overall: regular rate 07/31/2015 None Full Exam - General 1994 Cardiovascular auscultation of heart Overall: normal heart sounds 07/31/2015 None Full Exam - General 1994 Cardiovascular auscultation of heart Overall: no murmurs 07/31/2015 None Full Exam - General 1994 Abdomen abdominal exam Overall: no tenderness 07/31/2015 None Full Exam - General 1994 Abdomen abdominal exam Overall: normal bowel sounds 07/31/2015 None Full Exam - General 1994 Musculoskeletal gait and station Overall: normal gait 07/31/2015 None Full Exam - General 1994 Musculoskeletal gait and station Overall: normal station 07/31/2015 None Full Exam - General 1994 Integument inspection of skin Overall: no rash, lesions 07/31/2015 None Full Exam - General 1994 Psychiatric orientation/consciousness Overall: oriented to person, place and time 07/31/2015 None Full Exam - General 1994 Psychiatric mood and affect Overall: normal mood and affect 07/31/2015 None Full Exam - General 1994 Psychiatric appearance Overall: well-groomed, good eye contact 07/31/2015 None Full Exam - General 1994 Constitutional general appearance Development: appears younger than stated age 0207/03/2015 None Full Exam - General 1994 Constitutional general appearance Overall: well developed 07/03/2015 None Full Exam - General 1994 Constitutional general appearance Overall: in no acute distress 07/03/2015 None Full Exam - General 1994 Constitutional general appearance Overall: well nourished 07/03/2015 None Full Exam - General 1994 Constitutional general appearance Nourishment: thin 07/03/2015 None Full Exam - General 1994 Eyes conjunctiva/eyelids Overall: conjunctiva clear 07/03/2015 None Full Exam - General 1994 Eyes conjunctiva/eyelids Overall: cornea clear 07/03/2015 None Full Exam - General 1994 Eyes conjunctiva/eyelids Overall: eyelids normal 07/03/2015 None Full Exam - General 1994 Eyes pupils and irises Overall: pupils equal, round, reactive to light and accomodation 07/03/2015 None Full Exam - General 1994 Ears/Nose/Throat otoscopic exam Overall: external auditory canals clear 07/03/2015 None Full Exam - General 1994 Ears/Nose/Throat otoscopic exam Overall: tympanic membranes clear 07/03/2015 None Full Exam - General 1994 Ears/Nose/Throat lips/teeth/gingiva Overall: benign lips 07/03/2015 None Full Exam - General 1994 Ears/Nose/Throat lips/teeth/gingiva Overall: normal dentition 07/03/2015 None Full Exam - General 1994 Ears/Nose/Throat lips/teeth/gingiva Overall: benign gingiva 07/03/2015 None Full Exam - General 1994 Ears/Nose/Throat lips/teeth/gingiva Overall: no masses 07/03/2015 None Full Exam - General 1994 Ears/Nose/Throat oral cavity/pharynx/larynx Overall: oral mucosa clear 07/03/2015 None Full Exam - General 1994 Ears/Nose/Throat oral cavity/pharynx/larynx Overall: oropharyngeal mucosa clear 07/03/2015 None Full Exam - General 1994 Ears/Nose/Throat oral cavity/pharynx/larynx Overall: no masses 07/03/2015 None Full Exam - General 1994 Respiratory auscultation Overall: breath sounds clear bilaterally 07/03/2015 None Full Exam - General 1994 Respiratory respiratory effort/rhythm Overall: no retractions 07/03/2015 None Full Exam - General 1994 Respiratory respiratory effort/rhythm Overall: normal rate 07/03/2015 None Full Exam - General 1994 Cardiovascular extremities Overall: no clubbing 07/03/2015 None Full Exam - General 1994 Cardiovascular auscultation of heart Overall: regular rate 07/03/2015 None Full Exam - General 1994 Cardiovascular auscultation of heart Overall: normal heart sounds 07/03/2015 None Full Exam - General 1994 Cardiovascular auscultation of heart Overall: no murmurs 07/03/2015 None Full Exam - General 1994 Abdomen abdominal exam Overall: no tenderness 07/03/2015 None Full Exam - General 1994 Abdomen abdominal exam Overall: normal bowel sounds 07/03/2015 None Full Exam - General 1994 Musculoskeletal gait and station Overall: normal gait 07/03/2015 None Full Exam - General 1994 Musculoskeletal gait and station Overall: normal station 07/03/2015 None Full Exam - General 1994 Integument inspection of skin Overall: no rash, lesions 07/03/2015 None Full Exam - General 1994 Psychiatric orientation/consciousness Overall: oriented to person, place and time 07/03/2015 None Full Exam - General 1994 Psychiatric mood and affect Overall: normal mood and affect 07/03/2015 None Full Exam - General 1994 Psychiatric appearance Overall: well-groomed, good eye contact 07/03/2015 None Full Exam - General 1994 Constitutional general appearance Overall: well nourished 06/26/2015 None Full Exam - General 1994 Constitutional general appearance Overall: well developed 06/26/2015 None Full Exam - General 1994 Constitutional general appearance Overall: in no acute distress 06/26/2015 None Full Exam - General 1994 Constitutional general appearance Development: appears younger than stated age 0206/26/2015 None Full Exam - General 1994 Constitutional general appearance Nourishment: thin 06/26/2015 None Full Exam - General 1994 Eyes conjunctiva/eyelids Overall: conjunctiva clear 06/26/2015 None Full Exam - General 1994 Eyes conjunctiva/eyelids Overall: eyelids normal 06/26/2015 None Full Exam - General 1994 Eyes conjunctiva/eyelids Overall: cornea clear 06/26/2015 None Full Exam - General 1994 Eyes pupils and irises Overall: pupils equal, round, reactive to light and accomodation 06/26/2015 None Full Exam - General 1994 Ears/Nose/Throat lips/teeth/gingiva Overall: benign gingiva 06/26/2015 None Full Exam - General 1994 Ears/Nose/Throat lips/teeth/gingiva Overall: no masses 06/26/2015 None Full Exam - General 1994 Ears/Nose/Throat lips/teeth/gingiva Overall: normal dentition 06/26/2015 None Full Exam - General 1994 Ears/Nose/Throat lips/teeth/gingiva Overall: benign lips 06/26/2015 None Full Exam - General 1994 Ears/Nose/Throat oral cavity/pharynx/larynx Overall: oropharyngeal mucosa clear 06/26/2015 None Full Exam - General 1994 Ears/Nose/Throat oral cavity/pharynx/larynx Overall: no masses 06/26/2015 None Full Exam - General 1994 Ears/Nose/Throat oral cavity/pharynx/larynx Overall: oral mucosa clear 06/26/2015 None Full Exam - General 1994 Ears/Nose/Throat otoscopic exam Overall: tympanic membranes clear 06/26/2015 None Full Exam - General 1994 Ears/Nose/Throat otoscopic exam Overall: external auditory canals clear 06/26/2015 None Full Exam - General 1994 Respiratory respiratory effort/rhythm Overall: normal rate 06/26/2015 None Full Exam - General 1994 Respiratory respiratory effort/rhythm Overall: no retractions 06/26/2015 None Full Exam - General 1994 Respiratory auscultation Overall: breath sounds clear bilaterally 06/26/2015 None Full Exam - General 1994 Cardiovascular auscultation of heart Overall: regular rate 06/26/2015 None Full Exam - General 1994 Cardiovascular auscultation of heart Overall: normal heart sounds 06/26/2015 None Full Exam - General 1994 Cardiovascular auscultation of heart Overall: no murmurs 06/26/2015 None Full Exam - General 1994 Cardiovascular extremities Overall: no clubbing 06/26/2015 None Full Exam - General 1994 Musculoskeletal gait and station Overall: normal station 06/26/2015 None Full Exam - General 1994 Musculoskeletal gait and station Overall: normal gait 06/26/2015 None Full Exam - General 1994 Integument inspection of skin Overall: no rash, lesions 06/26/2015 None Full Exam - General 1994 Psychiatric orientation/consciousness Overall: oriented to person, place and time 06/26/2015 None Full Exam - General 1994 Psychiatric mood and affect Overall: normal mood and affect 06/26/2015 None Full Exam - General 1994 Psychiatric appearance Overall: well-groomed, good eye contact 06/26/2015 None Full Exam - General 1994 Abdomen abdominal exam Overall: no tenderness 06/26/2015 None Full Exam - General 1994 Abdomen abdominal exam Overall: normal bowel sounds 06/26/2015 None Full Exam - General 1994 Psychiatric orientation/consciousness Overall: oriented to person, place and time 12/12/2014 None Full Exam - General 1994 Psychiatric behavior/psychomotor activity Behavior: a normal exam 12/12/2014 None Full Exam - General 1994 Psychiatric mood and affect Overall: normal mood and affect 12/12/2014 None Full Exam - General 1994 Psychiatric appearance Overall: well-groomed, good eye contact 12/12/2014 None Full Exam - General 1994 Psychiatric speech Overall: normal quality, no aphasia 12/12/2014 None Full Exam - General 1994 Neurologic gait Overall: no ataxia, no unsteadiness 12/12/2014 None Full Exam - General 1994 Neurologic mental status Overall: alert 12/12/2014 None Full Exam - General 1994 Neurologic mental status Overall: oriented 12/12/2014 None Full Exam - General 1994 Integument inspection of skin Overall: few scattered moles, no gross abnormalities 12/12/2014 None Full Exam - General 1994 Integument inspection of skin Overall: no rash, lesions 12/12/2014 None Full Exam - General 1994 Musculoskeletal digits and nails Nails: a normal exam 12/12/2014 None Full Exam - General 1994 Musculoskeletal upper extremity Palpation - shoulder: acromioclavicular joint tenderness 12/12/2014 None Full Exam - General 1994 Musculoskeletal upper extremity Palpation - shoulder: tenderness @ bicipital groove 12/12/2014 None Full Exam - General 1994 Musculoskeletal upper extremity Palpation - shoulder: pain with resisted abduction 12/12/2014 None Full Exam - General 1994 Musculoskeletal upper extremity Palpation - shoulder: pain with resisted biceps flexion 12/12/2014 None Full Exam - General 1994 Musculoskeletal upper extremity Palpation - shoulder: pain with resisted internal rotation 12/12/2014 None Full Exam - General 1994 Musculoskeletal upper extremity Palpation - shoulder: pain with resisted external rotation 12/12/2014 None Full Exam - General 1994 Musculoskeletal upper extremity Palpation - shoulder: a normal exam 12/12/2014 None Full Exam - General 1994 Musculoskeletal lower extremity Overall: knee benign 12/12/2014 None Full Exam - General 1994 Musculoskeletal lower extremity Overall: ankle benign 12/12/2014 None Full Exam - General 1994 Musculoskeletal lower extremity Overall: foot benign 12/12/2014 None Full Exam - General 1994 Musculoskeletal lower extremity Overall: lower leg non-tender, without crepitus or defects 12/12/2014 None Full Exam - General 1994 Musculoskeletal lower extremity Overall: thigh non-tender, without crepitus or defects 12/12/2014 None Full Exam - General 1994 Musculoskeletal lower extremity Overall: foot non-tender, without crepitus or defects 12/12/2014 None Full Exam - General 1994 Musculoskeletal lower extremity Overall: full strength in LLE 12/12/2014 None Full Exam - General 1994 Musculoskeletal gait and station Overall: normal gait 12/12/2014 None Full Exam - General 1994 Musculoskeletal gait and station Overall: normal station 12/12/2014 None Full Exam - General 1994 Lymphatic neck nodes Overall: anterior cervical chain benign 12/12/2014 None Full Exam - General 1994 Lymphatic neck nodes Overall: posterior cervical chain benign 12/12/2014 None Full Exam - General 1994 Abdomen abdominal exam Overall: no tenderness 12/12/2014 None Full Exam - General 1994 Abdomen abdominal exam Overall: normal bowel sounds 12/12/2014 None Full Exam - General 1994 Cardiovascular auscultation of heart Overall: regular rate 12/12/2014 None Full Exam - General 1994 Cardiovascular auscultation of heart Overall: normal heart sounds 12/12/2014 None Full Exam - General 1994 Cardiovascular auscultation of heart Systolic murmur: holosystolic 12/12/2014 None Full Exam - General 1994 Cardiovascular extremities Overall: no clubbing 12/12/2014 None Full Exam - General 1994 Cardiovascular inspection of pedal pulses Dorsalis pedis: a normal exam 12/12/2014 None Full Exam - General 1994 Respiratory respiratory effort/rhythm Overall: no retractions 12/12/2014 None Full Exam - General 1994 Respiratory respiratory effort/rhythm Overall: normal rate 12/12/2014 None Full Exam - General 1994 Respiratory auscultation Overall: breath sounds clear bilaterally 12/12/2014 None Full Exam - General 1994 Neck inspection of neck Overall: normal size 12/12/2014 None Full Exam - General 1994 Neck inspection of neck Overall: normal appearance 12/12/2014 None Full Exam - General 1994 Neck inspection of neck Overall: no masses 12/12/2014 None Full Exam - General 1994 Neck inspection of neck Overall: absence of swelling 12/12/2014 None Full Exam - General 1994 Ears/Nose/Throat oral cavity/pharynx/larynx Overall: oropharyngeal mucosa clear 12/12/2014 None Full Exam - General 1994 Ears/Nose/Throat lips/teeth/gingiva Overall: benign lips 12/12/2014 None Full Exam - General 1994 Ears/Nose/Throat lips/teeth/gingiva Overall: no masses 12/12/2014 None Full Exam - General 1994 Ears/Nose/Throat lips/teeth/gingiva Overall: benign gingiva 12/12/2014 None Full Exam - General 1994 Ears/Nose/Throat lips/teeth/gingiva Overall: normal dentition 12/12/2014 None Full Exam - General 1994 Ears/Nose/Throat otoscopic exam Overall: external auditory canals clear 12/12/2014 None Full Exam - General 1994 Ears/Nose/Throat otoscopic exam Overall: tympanic membranes clear 12/12/2014 None Full Exam - General 1994 Eyes pupils and irises Overall: pupils equal, round, reactive to light and accomodation 12/12/2014 None Full Exam - General 1994 Eyes conjunctiva/eyelids Overall: conjunctiva clear 12/12/2014 None Full Exam - General 1994 Eyes conjunctiva/eyelids Overall: cornea clear 12/12/2014 None Full Exam - General 1994 Eyes conjunctiva/eyelids Overall: eyelids normal 12/12/2014 None Full Exam - General 1994 Constitutional general appearance Development: well developed 12/12/2014 None Full Exam - General 1994 Constitutional general appearance Development: appears stated age 0812/12/2014 None Full Exam - General 1994 Constitutional general appearance Development: appears younger than stated age 0812/12/2014 None Full Exam - General 1994 Constitutional general appearance Overall: in no acute distress 12/12/2014 None Procedures Procedure Codes Date PNEUMOCOCCAL VACC 13 CLARE IM Formatting Model/CDA Sections, Assigned to/Navya Medellin SNOMED CT: 96553106 CPT-4: [id number] 01/05/2016 ADMIN PNEUMOCOCCAL VACCINE SNOMED CT: 50278588 CPT-4: [id number] 01/05/2016 Vital Signs Date Vital 11/18/2016 Blood Pressure 1: 124/70 Code: 8480-6 BMI: 20.5 Code: 06148-0 Heart Rate 1: 68 bpm Height: 5'2" SpO2: 98% Weight: 112 lbs 01/05/2016 Blood Pressure 1: 120/68 Code: 8480-6 BMI: 21.6 Code: 79041-1 Heart Rate 1: 72 bpm Height: 5'2" SpO2: 96% Weight: 118 lbs 09/12/2015 Blood Pressure 1: 132/70 Code: 8480-6 BMI: 20.3 Code: 08149-8 Heart Rate 1: 64 bpm Height: 5'2" SpO2: 97% Weight: 111 lbs 08/14/2015 Blood Pressure 1: 128/70 Code: 8480-6 BMI: 21.0 Code: 12712-0 Heart Rate 1: 76 bpm Height: 5'2" Weight: 115 lbs 07/31/2015 Blood Pressure 1: 130/70 Code: 8480-6 BMI: 20.9 Code: 70053-0 Heart Rate 1: 84 bpm Height: 5'2" SpO2: 94% Weight: 114 lbs 07/03/2015 Blood Pressure 1: 148/60 Code: 8480-6 BMI: 21.0 Code: 52399-6 Heart Rate 1: 69 bpm Height: 5'2" SpO2: 99% Weight: 115 lbs 06/26/2015 Blood Pressure 1: 150/68 Code: 8480-6 BMI: 21.5 Code: 45858-1 Heart Rate 1: 73 bpm Height: 5'2" SpO2: 97% Weight: 117 lbs 8 oz 12/12/2014 Blood Pressure 1: 118/52 Code: 8480-6 BMI: 20.5 Code: 16615-2 Heart Rate 1: 73 bpm Height: 5'2" SpO2: 95% Weight: 112 lbs Functional Status No Functional Status data History of Present Illness Symptom Name Status Result Effective Date Notes diabetes mellitus Quality non-insulin dependent 11/18/2016 None diabetes mellitus Severity moderate 11/18/2016 None diabetes mellitus Significant Medications insulin 11/18/2016 None diabetes mellitus Alleviating Factors medication 11/18/2016 None diabetes mellitus Alleviating Factors diet 11/18/2016 None diabetes mellitus Exacerbating Factors diet 11/18/2016 thought she was going to from trulicity diabetes mellitus Nutrition regular diet 11/18/2016 None diabetes mellitus Pertinent Findings Denies dizziness 11/18/2016 None diabetes mellitus Pertinent Findings Denies dyspnea 11/18/2016 None diabetes mellitus Pertinent Findings Denies numbness 11/18/2016 None diabetes mellitus Pertinent Findings Denies vomiting 11/18/2016 None diabetes mellitus Quality non-insulin dependent 01/05/2016 None diabetes mellitus Severity moderate 01/05/2016 None diabetes mellitus Significant Medications insulin 01/05/2016 None diabetes mellitus Alleviating Factors medication 01/05/2016 None diabetes mellitus Alleviating Factors diet 01/05/2016 None diabetes mellitus Exacerbating Factors diet 01/05/2016 thought she was going to from trulicity diabetes mellitus Nutrition regular diet 01/05/2016 None diabetes mellitus Pertinent Findings Denies dizziness 01/05/2016 None diabetes mellitus Pertinent Findings Denies dyspnea 01/05/2016 None diabetes mellitus Pertinent Findings Denies numbness 01/05/2016 None diabetes mellitus Pertinent Findings Denies vomiting 01/05/2016 None diabetes mellitus Glucose monitoring occasional glucose testing 01/05/2016 None diabetes mellitus Quality non-insulin dependent 09/12/2015 None diabetes mellitus Severity moderate 09/12/2015 None diabetes mellitus Significant Medications insulin 09/12/2015 None diabetes mellitus Alleviating Factors medication 09/12/2015 None diabetes mellitus Alleviating Factors diet 09/12/2015 None diabetes mellitus Exacerbating Factors diet 09/12/2015 thought she was going to from trulicity diabetes mellitus Nutrition regular diet 09/12/2015 None diabetes mellitus Pertinent Findings Denies dizziness 09/12/2015 None diabetes mellitus Pertinent Findings Denies dyspnea 09/12/2015 None diabetes mellitus Pertinent Findings Denies numbness 09/12/2015 None diabetes mellitus Pertinent Findings Denies vomiting 09/12/2015 None diabetes mellitus Test results Pt checking blood glucose at home, see scanned readings 09/12/2015 None medication follow up Additional Comments medication use 08/14/2015 trulicity medication follow up Quality intermittent 08/14/2015 None medication follow up side effect emesis 08/14/2015 None medication follow up side effect nausea 08/14/2015 None medication follow up side effect Other: 08/14/2015 unable to move and loss of vision diabetes mellitus Quality non-insulin dependent 08/14/2015 None diabetes mellitus Severity moderate 08/14/2015 None diabetes mellitus Pertinent Findings Denies dizziness 08/14/2015 None diabetes mellitus Pertinent Findings Denies dyspnea 08/14/2015 None diabetes mellitus Pertinent Findings Denies numbness 08/14/2015 None diabetes mellitus Pertinent Findings Denies vomiting 08/14/2015 None diabetes mellitus Test results fasting glucose 115-140 08/14/2015 None diabetes mellitus Glucose monitoring twice daily 08/14/2015 None diabetes mellitus Significant Medications insulin 08/14/2015 None diabetes mellitus Alleviating Factors medication 08/14/2015 None diabetes mellitus Alleviating Factors diet 08/14/2015 None diabetes mellitus Exacerbating Factors diet 08/14/2015 thought she was going to from trulicity diabetes mellitus Nutrition regular diet 08/14/2015 None diabetes mellitus Exercise no exercise 08/14/2015 None dysuria Quality aching 07/31/2015 None dysuria Onset and Resolution ongoing 07/31/2015 None dysuria Onset of Symptom _ weeks ago 07/31/2015 None dysuria Frequency of Episodes daily 07/31/2015 None dysuria Pertinent Findings urinary urgency 07/31/2015 None diabetes mellitus Quality insulin dependent 07/31/2015 None diabetes mellitus Test results Pt checking blood glucose readings, did not bring results to clinic 07/31/2015 None diabetes mellitus Blood glucose levels between 60 and 120 07/31/2015 None diabetes mellitus Glucose monitoring daily 07/31/2015 None diabetes mellitus Pertinent Findings Denies vomiting 07/31/2015 None diabetes mellitus Pertinent Findings Denies numbness 07/31/2015 None diabetes mellitus Pertinent Findings Denies dizziness 07/31/2015 None diabetes mellitus Pertinent Findings Denies dyspnea 07/31/2015 None hyperlipidemia Onset of Symptom during adulthood 07/03/2015 None hyperlipidemia Alleviating Factors medication 07/03/2015 None hyperlipidemia Exacerbating Factors diet 07/03/2015 None hyperlipidemia Onset and Resolution ongoing 07/03/2015 None diabetes mellitus Quality insulin dependent 07/03/2015 None diabetes mellitus Significant Medications insulin 07/03/2015 None diabetes mellitus Alleviating Factors medication 07/03/2015 None hypertension Onset and Resolution ongoing 07/03/2015 None hypertension Onset of Symptom during adulthood 07/03/2015 None hypertension Blood Pressure Values not checking blood pressure at home 07/03/2015 None hypertension Alleviating Factors medication 07/03/2015 None hypertension Pertinent Findings Denies dizziness 07/03/2015 None hypertension Pertinent Findings Denies dyspnea 07/03/2015 None hypertension Pertinent Findings edema 07/03/2015 -intermittent- right leg diabetes mellitus Quality insulin dependent 06/26/2015 None diabetes mellitus Significant Medications insulin 06/26/2015 None diabetes mellitus Alleviating Factors medication 06/26/2015 None diabetes mellitus Glucose monitoring fasting 06/26/2015 None diabetes mellitus Glucose monitoring bedtime 06/26/2015 None diabetes mellitus Test results Pt checking blood glucose readings, did not bring results to clinic 06/26/2015 None hypertension Onset and Resolution ongoing 06/26/2015 None hypertension Onset of Symptom during adulthood 06/26/2015 None hypertension Blood Pressure Values not checking blood pressure at home 06/26/2015 None hypertension Pertinent Findings Denies dizziness 06/26/2015 None hypertension Pertinent Findings Denies dyspnea 06/26/2015 None hypertension Pertinent Findings edema 06/26/2015 -intermittent- right leg hypertension Alleviating Factors medication 06/26/2015 None hyperlipidemia Alleviating Factors medication 06/26/2015 None hyperlipidemia Exacerbating Factors diet 06/26/2015 None hyperlipidemia Onset of Symptom during adulthood 06/26/2015 None hyperlipidemia Onset and Resolution ongoing 06/26/2015 None insomnia Quality constant 12/12/2014 None insomnia Onset and Resolution ongoing 12/12/2014 None shoulder pain Location in the right acromioclavicular joint 12/12/2014 None shoulder pain Quality constant 12/12/2014 None shoulder pain Quality dull 12/12/2014 None shoulder pain Quality sharp 12/12/2014 None shoulder pain Onset and Resolution gradual in onset 12/12/2014 None shoulder pain Onset of Symptom _ years ago 12/12/2014 None shoulder pain Triggers activity 12/12/2014 None shoulder pain Alleviating Factors rest 12/12/2014 None shoulder pain Exacerbating Factors lifting 12/12/2014 None shoulder pain Exacerbating Factors pulling 12/12/2014 None diabetes mellitus Quality insulin dependent 12/12/2014 None diabetes mellitus Test results Pt checking blood glucose readings, did not bring results to clinic 12/12/2014 None diabetes mellitus Blood glucose levels between 60 and 120 12/12/2014 None diabetes mellitus Glucose monitoring daily 12/12/2014 None diabetes mellitus Significant Medications insulin 12/12/2014 None diabetes mellitus Alleviating Factors medication 12/12/2014 None shoulder pain Limitation on Activities moderately limits activities 12/12/2014 wakes patient up at night because of the pain shoulder pain Frequency of Episodes increasing 12/12/2014 None insomnia Frequency of Episodes increasing 12/12/2014 None insomnia Exacerbating Factors caffeine intake 12/12/2014 drinks black coffee, 1 cup per day, occasionallhy drinks a diet coke but not regularly weight loss Quality worsening 12/12/2014 None weight loss Onset and Resolution ongoing 12/12/2014 None weight loss Weight Status has a five to ten pound total weight loss 12/12/2014 None weight loss Frequency of Episodes increasing 12/12/2014 None Advance Directives No Advance Directive data Encounters Encounter Performer Location Codes ([id number]) [id number] EST. PATIENT, LEVEL IV Diagnosis: Type 2 diabetes mellitus with hyperglycemia[ICD10: E11.65] Diagnosis: Hypothyroidism, unspecified[ICD10: E03.9] Diagnosis: Essential (primary) hypertension[ICD10: I10] Diagnosis: Encounter for screening mammogram for malignant neoplasm of breast[ICD10: Z12.31] Cherri Bo MD, [facility] CPT-4: 46107 11/18/2016 ([id number]) [id number] EST. PATIENT, LEVEL IV Diagnosis: Essential (primary) hypertension[ICD10: I10] Diagnosis: Hypothyroidism, unspecified[ICD10: E03.9] Diagnosis: Type 2 diabetes mellitus with hyperglycemia[ICD10: E11.65] Diagnosis: Encounter for immunization[ICD10: Z23] Cherri Bo MD, [facility] CPT-4: 90149 01/05/2016 ([id number]) [id number] EST. PATIENT, LEVEL IV Diagnosis: Type 2 diabetes mellitus with hyperglycemia[ICD10: E11.65] Diagnosis: Encounter for screening mammogram for malignant neoplasm of breast[ICD10: Z12.31] Diagnosis: Essential (primary) hypertension[ICD10: I10] Diagnosis: Hyperlipidemia, unspecified[ICD10: E78.5] Cherri Bo MD, [facility] CPT-4: 91503 09/12/2015 ([id number]) [id number] EST. PATIENT, LEVEL IV Diagnosis: Type 2 diabetes mellitus with hyperglycemia[ICD10: E11.65] Diagnosis: Essential (primary) hypertension[ICD10: I10] Diagnosis: Major depressive disorder, single episode, unspecified[ICD10: F32.9] Cherri Bo MD, [facility] CPT-4: 53203 08/14/2015 ([id number]) 95928 EST. PATIENT, LEVEL IV Diagnosis: Essential (primary) hypertension[ICD10: I10] Diagnosis: Type 2 diabetes mellitus with hyperglycemia[ICD10: E11.65] Diagnosis: Major depressive disorder, single episode, unspecified[ICD10: F32.9] Diagnosis: Dysuria[ICD10: R30.0] Cherri Bo MD, [facility] CPT-4: 86123 07/31/2015 ([id number]) [id number] EST. PATIENT, LEVEL IV Diagnosis: Type 2 diabetes mellitus with hyperglycemia[ICD10: E11.65] Diagnosis: Essential (primary) hypertension[ICD10: I10] Diagnosis: Major depressive disorder, single episode, unspecified[ICD10: F32.9] Cherri Bo MD, [facility] CPT-4: 21402 07/03/2015 ([id number]) 75844 EST. PATIENT, LEVEL IV Diagnosis: Type 2 diabetes mellitus with hyperglycemia[ICD10: E11.65] Diagnosis: Essential (primary) hypertension[ICD10: I10] Diagnosis: Hyperlipidemia, unspecified[ICD10: E78.5] Diagnosis: Hypothyroidism, unspecified[ICD10: E03.9] [facility] CPT-4: 40602 06/26/2015 ([id number]) OFFICE VISIT, NEW - LEVEL 4 Diagnosis: Diabetes mellitus[ICD9: 250.00] Diagnosis: Right shoulder pain[ICD9: 719.41] Diagnosis: Sinus congestion[ICD9: 478.19] Diagnosis: Insomnia[ICD9: 780.52] [facility] CPT-4: 84608 12/12/2014 Plan of Care Planned Activity Notes Codes Status Date Patient Education: Patient Medication Summary Completed 11/23/2016 Care Plan: Iron Pending 11/23/2016 Visit Plan: Hypertension - well controlled - continue with current medications, continue with no added salt diet. Pt has been encouraged to exercise daily.The pt has been advised to call the office if there are any acute concerns about change in blood pressure readings at home.Diabetes Mellitus - controlled - per recent FSBS reports. I have recommended for the patient to have follow up labs prior to the next office visit. The patient has been instructed to continue with current medications as previously directed, continue with regular FSBS monitoring to assure continued control of diabetes. Pt to call for any acute concerns, complaints, or if the blood glucose readings are starting to become less controlled.Hypothyroidism - pt with chronic hypothyroidism, continue with current medication, will monitor pt to signs or symptoms of lack of adequate supplementation. Pt is to continue with current dose of medication unless directed otherwise. Check labs at regular intervals wither q 3 months or q 6 months based on previous levels of control. 11/18/2016 Appointment: Cherri Batres WPtel: [address] [place], [place] [phone] (30 min) [facility] 11/18/2016 Patient Education: Patient Medication Summary Completed 11/18/2016 Care Plan: SCREENINGMAMMOGRAPHYDIGITAL LOINC : 82986-2 Pending 11/18/2016 [facility] [phone] [phone] [place] (30 min) Complex 06/01/2016 App[facility]ment: [facility] [phone] [phone] ([facility] min[facility] Complex 05/13/2016 Visit Plan: Hypertension - well controlled - continue with current medications, continue with no added salt diet. Pt has been encouraged to exercise daily.The pt has been advised to call the office if there are any acute concerns about change in blood pressure readings at home.Hypothyroidism - pt with chronic hypothyroidism, continue with current medication, will monitor pt to signs or symptoms of lack of adequate supplementation. Pt is to continue with current dose of medication unless directed otherwise. Check labs at regular intervals wither q 3 months or q 6 months based on previous levels of control.Diabetes Mellitus - sees Dr Larry Leonard have recommended for the patient to have follow up labs prior to the next office visit. The patient has been instructed to continue with current medications as previously directed, continue with regular FSBS monitoring to assure continued control of diabetes. Pt to call for any acute concerns, complaints, or if the blood glucose readings are starting to become less controlled. 01/05/2016 Visit Plan: Hypertension - well controlled - continue with current medications, continue with no added salt diet. Pt has been encouraged to exercise daily.The pt has been advised to call the office if there are any acute concerns about change in blood pressure readings at home.Hypothyroidism - pt with chronic hypothyroidism, continue with current medication, will monitor pt to signs or symptoms of lack of adequate supplementation. Pt is to continue with current dose of medication unless directed otherwise. Check labs at regular intervals wither q 3 months or q 6 months based on previous levels of control.Diabetes Mellitus - sees Dr Larry Leonard have recommended for the patient to have follow up labs prior to the next office visit. The patient has been instructed to continue with current medications as previously directed, continue with regular FSBS monitoring to assure continued control of diabetes. Pt to call for any acute concerns, complaints, or if the blood glucose readings are starting to become less controlled. 01/05/2016 Patient Education: Patient Medication Summary Completed 01/05/2016 Visit Plan: Hypertension - well controlled - continue with current medications, continue with no added salt diet. Pt has been encouraged to exercise daily.The pt has been advised to call the office if there are any acute concerns about change in blood pressure readings at home.Diabetes Mellitus -I have recommended for the patient to have follow up labs prior to the next office visit. The patient has been instructed to continue with current medications as previously directed, continue with regular FSBS monitoring to assure continued control of diabetes. Pt to call for any acute concerns, complaints, or if the blood glucose readings are starting to become less controlled.Hyperlipidemia - pt has been counseled about appropriate diet, exercise, and need for low fat food choices. I have discussed the need for the patient to take medications as prescribed. If the patient has negative side effects from the medication, they are to CALL the office and not abruptly discontinue the medication without discussion with a practitioner in the office. We will check labs in 3-6 months for follow up on the patient's chronic medical problem and to assure normal liver response to medications. 09/12/2015 Patient Education: Patient Medication Summary Completed 09/12/2015 Appointment: (30 min) Complex 08/28/2015 Visit Plan: Hypertension - well controlled - continue with current medications, continue with no added salt diet. Pt has been encouraged to exercise daily.The pt has been advised to call the office if there are any acute concerns about change in blood pressure readings at home.Diabetes Mellitus - I have recommended for the patient to have follow up labs prior to the next office visit. The patient has been instructed to continue with current medications as previously directed, continue with regular FSBS monitoring to assure continued control of diabetes. Pt to call for any acute concerns, complaints, or if the blood glucose readings are starting to become less controlled.Chronic Depression and anxiety - the pt has symptoms of chronic anxiety and depression that have been fairly well controlled since the last office visit. The pt has expected periods of exacerbation with abatement of the symptoms with change in situational exposure. No change in current medications. 08/14/2015 Appointment: (30 min) Complex 08/14/2015 Patient Education: Patient Medication Summary Completed 08/14/2015 Patient Education: Hypertension Completed 08/14/2015 Visit Plan: Hypertension - well controlled - continue with current medications, continue with no added salt diet. Pt has been encouraged to exercise daily.The pt has been advised to call the office if there are any acute concerns about change in blood pressure readings at home.Diabetes Mellitus - controlled - per recent FSBS reports. I have recommended for the patient to have follow up labs prior to the next office visit. The patient has been instructed to continue with current medications as previously directed, continue with regular FSBS monitoring to assure continued control of diabetes. Pt to call for any acute concerns, complaints, or if the blood glucose readings are starting to become less controlled.Depression - uncontrolled - Pt has been counseled about the diagnosis of depression, the potential causes, and risks associated with the diagnosis. The pt denies suicidal ideation, or plans. The patient has been counseled about treatment options, and understands the risks associated with treatment of depression, as well as the risks associated with NOT treating the depression.I believe the pt will benefit from medical intervention and an antidepressant has been appropriately prescribed for this patient.DID NOT TOLERATE LEXAPRO-START CYMBALTA 30MG DAILY Dysuria-check UA 07/31/2015 Patient Education: Patient Medication Summary Completed 07/31/2015 Patient Education: Hypertension Completed 07/31/2015 Visit Plan: Diabetes Mellitus - Uncontrolled - per recent FSBS reports. I have recommended for the patient to have follow up labs prior to the next office visit. The patient has been instructed to continue with current medications as previously directed, continue with regular FSBS monitoring to assure continued control of diabetes. Pt to call for any acute concerns, complaints, or if the blood glucose readings are starting to become less controlled.I have recommended for the patient to follow more strictly to the diabetic diet as discussed in clinic to allow for greater blood glucose control.Hypertension - well controlled - continue with current medications, continue with no added salt diet. Pt has been encouraged to exercise daily.The pt has been advised to call the office if there are any acute concerns about change in blood pressure readings at home.Depression - uncontrolled - Pt has been counseled about the diagnosis of depression, the potential causes, and risks associated with the diagnosis. The pt denies suicidal ideation, or plans. The patient has been counseled about treatment options, and understands the risks associated with treatment of depression, as well as the risks associated with NOT treating the depression.I believe the pt will benefit from medical intervention and an antidepressant has been appropriately prescribed for this patient. 07/03/2015 Appointment: (30 min) Complex 07/03/2015 Patient Education: Patient Medication Summary Completed 07/03/2015 Patient Education: Hypertension Completed 07/03/2015 Visit Plan: Hypertension - not well controlled - continue with current medications, continue with no added salt diet. Pt has been encouraged to exercise daily.The pt has been advised to call the office if there are any acute concerns about change in blood pressure readings at home.Diabetes Mellitus - Uncontrolled - per recent FSBS reports. I have recommended for the patient to have follow up labs prior to the next office visit. The patient has been instructed to continue with current medications as previously directed, continue with regular FSBS monitoring to assure continued control of diabetes. Pt to call for any acute concerns, complaints, or if the blood glucose readings are starting to become less controlled.I have recommended for the patient to follow more strictly to the diabetic diet as discussed in clinic to allow for greater blood glucose control.Hyperlipidemia - pt has been counseled about appropriate diet, exercise, and need for low fat food choices. I have discussed the need for the patient to take medications as prescribed. If the patient has negative side effects from the medication, they are to CALL the office and not abruptly discontinue the medication without discussion with a practitioner in the office. We will check labs in 3-6 months for follow up on the patient's chronic medical problem and to assure normal liver response to medications.Hypothyroidism - pt with chronic hypothyroidism, continue with current medication, will monitor pt to signs or symptoms of lack of adequate supplementation. Pt is to continue with current dose of medication unless directed otherwise. Check labs at regular intervals wither q 3 months or q 6 months based on previous levels of control. 06/26/2015 Appointment: (30 min) Complex 06/26/2015 Patient Education: Patient Medication Summary Completed 06/26/2015 Patient Education: Hypertension Completed 06/26/2015 Visit Plan: Diabetes Mellitus- Recent labs requested from previous care provider. Patient is unsure of most recent hgbA1c results. The patient has been instructed to continue with current medications as previously directed, continue with regular FSBS monitoring to assure continued control of diabetes. Recommend pt to keep log of blood sugars and bring to office. Pt to call for any acute concerns, complaints, or if the blood glucose readings are starting to become less controlled.Insomnia - Pt has been advised to increase the light in the house during the day, and start dimming the lights during the evening hours.Pt has been advised to cut out caffeine after 5pm.Daytime napping worsens night time insomnia.Continue PRN Alprazolam for sleep. Sinus congestion- RX to pt's pharmacy. Right shoulder pain with limited ROM- Referral appt with Dr. Demarco. 12/12/2014 Appointment: New Patient 12/12/2014 Patient Education: Patient Medication Summary Completed 12/12/2014 Care Plan: Referral Order SNOMED-CT : [id number] Ordered 12/12/2014 Referral: Ronan Demarco Referral Completed Instructions Comment . Hypertension - well controlled - continue with current medications, continue with no added salt diet. Pt has been encouraged to exercise daily. The pt has been advised to call the office if there are any acute concerns about change in blood pressure readings at home. Diabetes Mellitus -I have recommended for the patient to have follow up labs prior to the next office visit. The patient has been instructed to continue with current medications as previously directed, continue with regular FSBS monitoring to assure continued control of diabetes. Pt to call for any acute concerns, complaints, or if the blood glucose readings are starting to become less controlled. Hyperlipidemia - pt has been counseled about appropriate diet, exercise, and need for low fat food choices. I have discussed the need for the patient to take medications as prescribed. If the patient has negative side effects from the medication, they are to CALL the office and not abruptly discontinue the medication without discussion with a practitioner in the office. We will check labs in 3-6 months for follow up on the patient's chronic medical problem and to assure normal liver response to medications. RECOMMEND FLU VACCINE END OF . Hypertension - well controlled - continue with current medications, continue with no added salt diet. Pt has been encouraged to exercise daily. The pt has been advised to call the office if there are any acute concerns about change in blood pressure readings at home. Hypothyroidism - pt with chronic hypothyroidism, continue with current medication, will monitor pt to signs or symptoms of lack of adequate supplementation. Pt is to continue with current dose of medication unless directed otherwise. Check labs at regular intervals wither q 3 months or q 6 months based on previous levels of control. Diabetes Mellitus - sees Dr Whiteside- I have recommended for the patient to have follow up labs prior to the next office visit. The patient has been instructed to continue with current medications as previously directed, continue with regular FSBS monitoring to assure continued control of diabetes. Pt to call for any acute concerns, complaints, or if the blood glucose readings are starting to become less controlled. RECOMMEND FLU VACCINE END OF . Hypertension - well controlled - continue with current medications, continue with no added salt diet. Pt has been encouraged to exercise daily. The pt has been advised to call the office if there are any acute concerns about change in blood pressure readings at home. Hypothyroidism - pt with chronic hypothyroidism, continue with current medication, will monitor pt to signs or symptoms of lack of adequate supplementation. Pt is to continue with current dose of medication unless directed otherwise. Check labs at regular intervals wither q 3 months or q 6 months based on previous levels of control. Diabetes Mellitus - sees Dr Whiteside- I have recommended for the patient to have follow up labs prior to the next office visit. The patient has been instructed to continue with current medications as previously directed, continue with regular FSBS monitoring to assure continued control of diabetes. Pt to call for any acute concerns, complaints, or if the blood glucose readings are starting to become less controlled. Trulicity once weekly injection Lexapro 5 mg one tab nightly . Diabetes Mellitus - Uncontrolled - per recent FSBS reports. I have recommended for the patient to have follow up labs prior to the next office visit. The patient has been instructed to continue with current medications as previously directed, continue with regular FSBS monitoring to assure continued control of diabetes. Pt to call for any acute concerns, complaints, or if the blood glucose readings are starting to become less controlled. I have recommended for the patient to follow more strictly to the diabetic diet as discussed in clinic to allow for greater blood glucose control. Hypertension - well controlled - continue with current medications, continue with no added salt diet. Pt has been encouraged to exercise daily. The pt has been advised to call the office if there are any acute concerns about change in blood pressure readings at home. Depression - uncontrolled - Pt has been counseled about the diagnosis of depression, the potential causes, and risks associated with the diagnosis. The pt denies suicidal ideation, or plans. The patient has been counseled about treatment options, and understands the risks associated with treatment of depression, as well as the risks associated with NOT treating the depression. I believe the pt will benefit from medical intervention and an antidepressant has been appropriately prescribed for this patient. LABS DUE MAMMOGRAM -ORDER PROVIDED REFILL XANAX TO [facility] . Hypertension - well controlled - continue with current medications, continue with no added salt diet. Pt has been encouraged to exercise daily. The pt has been advised to call the office if there are any acute concerns about change in blood pressure readings at home. Diabetes Mellitus - controlled - per recent FSBS reports. I have recommended for the patient to have follow up labs prior to the next office visit. The patient has been instructed to continue with current medications as previously directed, continue with regular FSBS monitoring to assure continued control of diabetes. Pt to call for any acute concerns, complaints, or if the blood glucose readings are starting to become less controlled. Hypothyroidism - pt with chronic hypothyroidism, continue with current medication, will monitor pt to signs or symptoms of lack of adequate supplementation. Pt is to continue with current dose of medication unless directed otherwise. Check labs at regular intervals wither q 3 months or q 6 months based on previous levels of control. KEEP TRACK OF LOG OF BLOOD SUGARS AND INSULIN AND BRING TO YOUR NEXT APPOINTMENT . Hypertension - well controlled - continue with current medications, continue with no added salt diet. Pt has been encouraged to exercise daily. The pt has been advised to call the office if there are any acute concerns about change in blood pressure readings at home. Diabetes Mellitus - I have recommended for the patient to have follow up labs prior to the next office visit. The patient has been instructed to continue with current medications as previously directed, continue with regular FSBS monitoring to assure continued control of diabetes. Pt to call for any acute concerns, complaints, or if the blood glucose readings are starting to become less controlled. Chronic Depression and anxiety - the pt has symptoms of chronic anxiety and depression that have been fairly well controlled since the last office visit. The pt has expected periods of exacerbation with abatement of the symptoms with change in situational exposure. No change in current medications. Call the office and let us know the dosage of your Alprazolam. We will get your recent lab results. I will talk to Dr. Bo about appetite stimulants. We will call you with an appointment time with Dr. Demarco. . Diabetes Mellitus- Recent labs requested from previous care provider. Patient is unsure of most recent hgbA1c results. The patient has been instructed to continue with current medications as previously directed, continue with regular FSBS monitoring to assure continued control of diabetes. Recommend pt to keep log of blood sugars and bring to office. Pt to call for any acute concerns, complaints, or if the blood glucose readings are starting to become less controlled. Insomnia - Pt has been advised to increase the light in the house during the day, and start dimming the lights during the evening hours. Pt has been advised to cut out caffeine after 5pm. Daytime napping worsens night time insomnia. Continue PRN Alprazolam for sleep. Sinus congestion- RX to pt's pharmacy. Right shoulder pain with limited ROM- Referral appt with Dr. Demarco. . Hypertension - well controlled - continue with current medications, continue with no added salt diet. Pt has been encouraged to exercise daily. The pt has been advised to call the office if there are any acute concerns about change in blood pressure readings at home. Diabetes Mellitus - controlled - per recent FSBS reports. I have recommended for the patient to have follow up labs prior to the next office visit. The patient has been instructed to continue with current medications as previously directed, continue with regular FSBS monitoring to assure continued control of diabetes. Pt to call for any acute concerns, complaints, or if the blood glucose readings are starting to become less controlled. Depression - uncontrolled - Pt has been counseled about the diagnosis of depression, the potential causes, and risks associated with the diagnosis. The pt denies suicidal ideation, or plans. The patient has been counseled about treatment options, and understands the risks associated with treatment of depression, as well as the risks associated with NOT treating the depression. I believe the pt will benefit from medical intervention and an antidepressant has been appropriately prescribed for this patient. DID NOT TOLERATE LEXAPRO-START CYMBALTA 30MG DAILY Dysuria-check UA BRING LOG OF BLOOD SUGAR TO APPOINTMENT IN 1 WEEK . Hypertension - not well controlled - continue with current medications, continue with no added salt diet. Pt has been encouraged to exercise daily. The pt has been advised to call the office if there are any acute concerns about change in blood pressure readings at home. Diabetes Mellitus - Uncontrolled - per recent FSBS reports. I have recommended for the patient to have follow up labs prior to the next office visit. The patient has been instructed to continue with current medications as previously directed, continue with regular FSBS monitoring to assure continued control of diabetes. Pt to call for any acute concerns, complaints, or if the blood glucose readings are starting to become less controlled. I have recommended for the patient to follow more strictly to the diabetic diet as discussed in clinic to allow for greater blood glucose control. Hyperlipidemia - pt has been counseled about appropriate diet, exercise, and need for low fat food choices. I have discussed the need for the patient to take medications as prescribed. If the patient has negative side effects from the medication, they are to CALL the office and not abruptly discontinue the medication without discussion with a practitioner in the office. We will check labs in 3-6 months for follow up on the patient's chronic medical problem and to assure normal liver response to medications. Hypothyroidism - pt with chronic hypothyroidism, continue with current medication, will monitor pt to signs or symptoms of lack of adequate supplementation. Pt is to continue with current dose of medication unless directed otherwise. Check labs at regular intervals wither q 3 months or q 6 months based on previous levels of control.
--- OUTSIDE RECORDS SUMMARY | 2018-11-03 13:26 | XMS REPORT | CCD ---
Author Author Cathy Navas MD, [facility] Address [address] [place] [address] Phone Care Team Providers Care Soil Conservation Aide Name Role Phone PP Unavailable CCM Unavailable Summary Purpose Interface Exchange Insurance Providers Payer name Policy type / Coverage type Covered democrat ID Effective Begin Date Effective End Date [employer] Medicare Part B [id number] Unknown Unknown WPS Medicare Part B Medicare Part B [id number] Unknown Unknown Family history Mother Diagnosis Age At Onset Heart Attack Unknown Son Diagnosis Age At Onset Cancer Unknown Social History Social History Element Codes Description Effective Dates Number of children Unknown 2 12/12/[address]: 423590998 Never smoker 12/12/[address]: 931630955 Never drinks alcohol 12/12/2014 Allergies, Adverse Reactions, [...] Fill Instructions glipizide 5 mg tablet RxNorm: 989562 1/2 Tablet(s) PO daily 11/18/2016 No Stop Date Active Synthroid 50 mcg tablet RxNorm: 830125 1 Tablet(s) PO daily 11/18/2016 11/12/2017 Active Lexapro 5 mg tablet RxNorm: 626847 TAKE 1 TABLET EVERY EVENING 08/03/2016 11/17/2016 Inactive alprazolam 0.5 mg tablet RxNorm: 371215 1 Tablet(s) PO BID as needed 04/12/2016 10/08/2016 Inactive Synthroid 50 mcg tablet RxNorm: 950252 1 Tablet(s) PO daily 04/12/2016 11/17/2016 Inactive Synthroid 50 mcg tablet RxNorm: 757513 1 Tablet(s) PO daily 04/09/2016 04/11/2016 Inactive Synthroid 50 mcg tablet RxNorm: 176077 1 Tablet(s) PO daily 01/05/2016 04/08/2016 Inactive Synthroid 50 mcg tablet RxNorm: 327592 1 Tablet(s) PO daily 01/05/2016 01/04/2016 Inactive alprazolam 0.5 mg tablet RxNorm: 977460 1 Tablet(s) PO BID as needed 01/05/2016 04/03/2016 Inactive alprazolam 0.5 mg tablet RxNorm: 514656 1 Tablet(s) PO BID as needed 09/12/2015 12/10/2015 Inactive Humalog 100 unit/mL subcutaneous solution RxNorm: 385049 Unit(s) SQ PRN 09/12/2015 12/11/2015 Inactive alprazolam 0.5 mg tablet RxNorm: 660774 1 Tablet(s) PO BID as needed 08/14/2015 09/11/2015 Inactive Cymbalta 30 mg capsule,delayed release RxNorm: 400822 1 Capsule(s) PO daily 08/14/2015 09/11/2015 Inactive Cymbalta 30 mg capsule,delayed release RxNorm: 261351 1 Capsule(s) PO daily 07/31/2015 08/13/2015 Inactive Trulicity 0.75 mg/0.5 mL subcutaneous pen injector RxNorm: 2548297 1/2 Milliliter(s) SQ QW 07/03/2015 08/13/2015 Inactive Synthroid 50 mcg tablet RxNorm: 063376 1 Tablet(s) PO daily 07/03/2015 01/04/2016 Inactive Lexapro 5 mg tablet RxNorm: 862547 1 Tablet(s) PO QPM 07/03/2015 08/13/2015 Inactive Climara 0.05 mg/24 hr transdermal patch RxNorm: 625742 1 Patch TD QW 07/03/2015 11/17/2016 Inactive Climara 0.05 mg/24 hr transdermal patch RxNorm: 200102 1 Patch TD QW 06/26/2015 06/25/2015 Inactive Climara 0.05 mg/24 hr transdermal patch RxNorm: 073977 1 Patch TD QW 06/26/2015 07/02/2015 Inactive metoprolol succinate ER 25 mg tablet,extended release 24 hr RxNorm: 283450 1 Tablet(s) PO daily 06/26/2015 06/26/2015 Inactive Humalog 100 unit/mL subcutaneous solution RxNorm: 528784 Unit(s) SQ PRN 02/03/2015 07/02/2015 Inactive Remeron 15 mg tablet RxNorm: 012659 1/2 Tablet(s) PO QHS 12/23/2014 06/25/2015 Inactive no refilled- direction change Remeron 15 mg tablet RxNorm: 764518 1 Tablet(s) PO QHS 12/18/2014 12/17/2014 Inactive Remeron 15 mg tablet RxNorm: 604687 1 Tablet(s) PO QHS 12/18/2014 12/22/2014 Inactive Flonase Allergy Relief 50 mcg/actuation nasal spray,suspension RxNorm: 2 Mcguffey NASAL daily 12/12/2014 03/11/2015 Inactive aspirin 81 mg tablet RxNorm: 167170 1 Tablet(s) PO daily No Start Date Active fenofibrate nanocrystallized 145 mg tablet RxNorm: 766619 1 Tablet(s) PO daily No Start Date Active Coreg CR 20 mg capsule, extended release RxNorm: 427558 1 Capsule(s) PO daily No Start Date Active amlodipine 5 mg tablet RxNorm: 514721 1 Tablet(s) PO daily No Start Date Active lisinopril 40 mg tablet RxNorm: 983753 1 Tablet(s) PO daily No Start Date Active Crestor 20 mg tablet RxNorm: 515018 1 Tablet(s) PO daily No Start Date Active spironolactone 25 mg tablet RxNorm: 156300 1 Tablet(s) PO PRN No Start Date 12/13/2014 Inactive telmisartan 80 mg tablet RxNorm: 814722 1 Tablet(s) PO daily No Start Date 11/17/2016 Inactive Humalog 100 unit/mL subcutaneous solution RxNorm: 386337 Unit(s) SQ PRN No Start Date 02/02/2015 Inactive alprazolam 0.5 mg tablet RxNorm: 851928 1 Tablet(s) PO TID as needed No Start Date 08/13/2015 Inactive glipizide ER 2.5 mg tablet, extended release 24 hr RxNorm: 862296 1 Tablet(s) PO daily No Start Date 01/04/2016 Inactive Vitamin B-12 1,000 mcg/mL oral drops RxNorm: 3029858 1 Milliliter(s) PO daily Start once patient runs out of the 1,000 mcg tabs. No Start Date 11/17/2016 Inactive gabapentin 300 mg capsule RxNorm: 108369 1 Capsule(s) PO BID No Start Date 11/17/2016 Inactive meloxicam 15 mg tablet RxNorm: 224222 1 Tablet(s) PO BID No Start Date 07/30/2015 Inactive Coreg CR 20 mg capsule, extended release RxNorm: 904428 1 Capsule(s) PO daily No Start Date 06/25/2015 Inactive Climara 0.1 mg/24 hr transdermal patch RxNorm: 371597 1 TD QW No Start Date 06/25/2015 Inactive levothyroxine 50 mcg tablet RxNorm: 061065 1 Tablet(s) PO daily No Start Date 07/03/2015 Inactive Vitamin D2 1,000 unit capsule RxNorm: 559558 1 Capsule(s) PO daily No Start Date 11/17/2016 Inactive Fish Oil 1,000 mg capsule RxNorm: 1 Capsule(s) PO daily No Start Date 11/17/2016 Inactive glipizide 5 mg tablet RxNorm: 714973 1 Tablet(s) PO daily No Start Date [...] Observation Code Item Item Code Result Date Comp Metabolic Cbs053 NA 144 mEq/L 11/22/2016 Comp Metabolic Bex612 K 4.8 mEq/L 11/22/2016 Comp Metabolic Qak961 CL 111 mEq/L 11/22/2016 Comp Metabolic Unx135 CO2 26.0 mEq/L 11/22/2016 Comp Metabolic Arl947 ANION GAP 12 11/22/2016 Comp Metabolic Ybd669 GLUCOSE 111 mg/dL 11/22/2016 Comp Metabolic Xsg302 Creat 1.3 mg/dL 11/22/2016 Comp Metabolic Zku933 eGFR 41 ml/min/1.73m2 11/22/2016 Comp Metabolic Zje897 BUN 38 mg/dL 11/22/2016 Comp Metabolic Ghe566 B/C Ratio 28.4 Ratio 11/22/2016 Comp Metabolic Ewf206 CALCIUM 10.0 mg/dL 11/22/2016 Comp Metabolic Afs887 ALK PHOS 43 U/L 11/22/2016 Comp Metabolic Rle238 AST(SGOT) 10 U/L 11/22/2016 Comp Metabolic Oev768 ALT(SGPT) 11 U/L 11/22/2016 Comp Metabolic Ipv299 BILI T 0.3 mg/dL 11/22/2016 Comp Metabolic Ioy759 ALBUMIN 3.8 g/dL 11/22/2016 Comp Metabolic Spl486 TPRO 6.1 g/dL 11/22/2016 Comp Metabolic Ork039 GLOB 2.3 g/dL 11/22/2016 Comp Metabolic Stc071 A/G Ratio 1.7 Ratio 11/22/2016 Comp Metabolic Grj417 Osmo 297 mOsmo 11/22/2016 Cbc With Differential Ord2 WBC 5.20 K/ul 11/22/2016 Cbc With Differential Ord2 RBC 3.51 M/ul 11/22/2016 Cbc With Differential Ord2 HGB 11.1 g/dl 11/22/2016 Cbc With Differential Ord2 HCT 34.9 % 11/22/2016 Cbc With Differential Ord2 Neut% 34.2 % 11/22/2016 Cbc With Differential Ord2 MCV 99.4 fl 11/22/2016 Cbc With Differential Ord2 Lymph% 47.3 % 11/22/2016 Cbc With Differential Ord2 MCH 31.6 pg 11/22/2016 Cbc With Differential Ord2 [place]% 10.4 % 11/22/2016 Cbc With Differential Ord2 Eos% 7.3 % 11/22/2016 Cbc With Differential Ord2 MCHC 31.8 pg 11/22/2016 Cbc With Differential Ord2 PLT 313 K/ul 11/22/2016 Cbc With Differential Ord2 Baso% 0.8 % 11/22/2016 Cbc With Differential Ord2 Neut ABS# 1.78 K/ul 11/22/2016 Cbc With Differential Ord2 RDW 13.2 % 11/22/2016 Cbc With Differential Ord2 Lymph ABS# 2.46 K/ul 11/22/2016 Cbc With Differential Ord2 [place] ABS# 0.5 K/ul 11/22/2016 Cbc With Differential Ord2 Eos ABS# 0.4 K/ul 11/22/2016 Cbc With Differential Ord2 Baso ABS# 0.0 K/ul 11/22/2016 Lipid Ord30 CHOL 153 mg/dL 11/22/2016 Lipid Ord30 HDL 46.0 mg/dl 11/22/2016 Lipid Ord30 TRIG 150 mg/dL 11/22/2016 Lipid Ord30 LDL 77 mg/dL 11/22/2016 Lipid Ord30 C/HDL 3.3 Ratio 11/22/2016 %Hba1C Hdt566 % HbA1c 79808- 6 6.7 % 11/22/2016 %Hba1C Xpi357 Gluc Ave 146 mg/dL 11/22/2016 Tsh Ord6 hTSH II 1.84 uIU/mL 11/22/2016 Free T4 Cki000 FREE T4 1.00 ng/dL 11/22/2016 %Hba1C Pzd432 % HbA1c 60817- 6 7.3 % 09/24/2015 %Hba1C Orz275 Gluc Ave 163 mg/dL 09/24/2015 Cbc With Differential Ord2 WBC 6.31 K/ul 09/24/2015 Cbc With Differential Ord2 RBC 3.54 M/ul 09/24/2015 Cbc With Differential Ord2 HGB 11.2 g/dl 09/24/2015 Cbc With Differential Ord2 HCT 34.9 % 09/24/2015 Cbc With Differential Ord2 Neut% 40.2 % 09/24/2015 Cbc With Differential Ord2 MCV 98.6 fl 09/24/2015 Cbc With Differential Ord2 Lymph% 42.2 % 09/24/2015 Cbc With Differential Ord2 MCH 31.6 pg 09/24/2015 Cbc With Differential Ord2 [place]% 10.1 % 09/24/2015 Cbc With Differential Ord2 Eos% 6.5 % 09/24/2015 Cbc With Differential Ord2 MCHC 32.1 pg 09/24/2015 Cbc With Differential Ord2 Baso% 1.0 % 09/24/2015 Cbc With Differential Ord2 PLT 314 K/ul 09/24/2015 Cbc With Differential Ord2 RDW 13.2 % 09/24/2015 Cbc With Differential Ord2 Neut ABS# 2.54 K/ul 09/24/2015 Cbc With Differential Ord2 Lymph ABS# 2.66 K/ul 09/24/2015 Cbc With Differential Ord2 [place] ABS# 0.6 K/ul 09/24/2015 Cbc With Differential [...] Lipid Ord30 C/HDL 3.2 Ratio 09/12/2015 Hepatic Swo788 ALBUMIN 4.2 g/dL 09/12/2015 Hepatic Uqr560 TPRO 6.5 g/dL 09/12/2015 Hepatic Jqx317 GLOB 2.3 g/dL 09/12/2015 Hepatic Ois847 A/G Ratio 1.8 Ratio 09/12/2015 Hepatic Djm130 ALK PHOS 33 U/L 09/12/2015 Hepatic Jfn920 ALT(SGPT) 27 U/L 09/12/2015 Hepatic Ifx557 AST(SGOT) 14 U/L 09/12/2015 Hepatic Zhq834 BILI T 0.3 mg/dL 09/12/2015 Hepatic Rgn578 BILI D 0.1 mg/dL 09/12/2015 Hepatic Apl312 BILI I 0.2 mg/dL 09/12/2015 Review of [...] Model/CDA Sections, Assigned to/Navya Medellin SNOMED CT: 67301007 CPT-4: 98239Wnwinpf 01/05/2016 ADMIN PNEUMOCOCCAL VACCINE SNOMED CT: 89800134 CPT-4: Q4529Euvhjlk 01/05/2016 Vital Signs Date Vital 11/18/2016 Blood Pressure 1: 124/70 Code: 8480-6 BMI: 20.5 Code: 47829-7 Heart Rate 1: 68 bpm Height: 5'2" SpO2: 98% Weight: 112 lbs 01/05/2016 Blood Pressure 1: 120/68 Code: 8480-6 BMI: 21.6 Code: 13181-9 Heart Rate 1: 72 bpm Height: 5'2" SpO2: 96% Weight: 118 lbs 09/12/2015 Blood Pressure 1: 132/70 Code: 8480-6 BMI: 20.3 Code: 56326-2 Heart Rate 1: 64 bpm Height: 5'2" SpO2: 97% Weight: 111 lbs 08/14/2015 Blood Pressure 1: 128/70 Code: 8480-6 BMI: 21.0 Code: 75931-0 Heart Rate 1: 76 bpm Height: 5'2" Weight: 115 lbs 07/31/2015 Blood Pressure 1: 130/70 Code: 8480-6 BMI: 20.9 Code: 21792-5 Heart Rate 1: 84 bpm Height: 5'2" SpO2: 94% Weight: 114 lbs 07/03/2015 Blood Pressure 1: 148/60 Code: 8480-6 BMI: 21.0 Code: 41998-5 Heart Rate 1: 69 bpm Height: 5'2" SpO2: 99% Weight: 115 lbs 06/26/2015 Blood Pressure 1: 150/68 Code: 8480-6 BMI: 21.5 Code: 75595-1 Heart Rate 1: 73 bpm Height: 5'2" SpO2: 97% Weight: 117 lbs 8 oz 12/12/2014 Blood Pressure 1: 118/52 Code: 8480-6 BMI: 20.5 Code: 73512-0 Heart Rate 1: 73 bpm Height: 5'2" [...] Directive data Encounters Encounter Performer Location Codes Date ([id number]) [id number] EST. PATIENT, LEVEL IV Diagnosis: Type 2 diabetes mellitus with hyperglycemia[ICD10: E11.65] Diagnosis: Hypothyroidism, unspecified[ICD10: E03.9] Diagnosis: Essential (primary) hypertension[ICD10: I10] Diagnosis: Encounter for screening mammogram for malignant neoplasm of breast[ICD10: Z12.31] Cherri Bo MD, [facility] CPT-4: 49350 11/18/2016 ([id number]) 46768 EST. PATIENT, LEVEL IV Diagnosis: Essential (primary) hypertension[ICD10: I10] Diagnosis: Hypothyroidism, unspecified[ICD10: E03.9] Diagnosis: Type 2 diabetes mellitus with hyperglycemia[ICD10: E11.65] Diagnosis: Encounter for immunization[ICD10: Z23] Cherri Bo MD, [facility] CPT-4: 90227 01/05/2016 ([id number]) 69761 EST. PATIENT, LEVEL IV Diagnosis: Type 2 diabetes mellitus with hyperglycemia[ICD10: E11.65] Diagnosis: Encounter for screening mammogram for malignant neoplasm of breast[ICD10: Z12.31] Diagnosis: Essential (primary) hypertension[ICD10: I10] Diagnosis: Hyperlipidemia, unspecified[ICD10: E78.5] Cherri Bo MD, [facility] CPT-4: 04566 09/12/2015 ([id number]) 90110 EST. PATIENT, LEVEL IV Diagnosis: Type 2 diabetes mellitus with hyperglycemia[ICD10: E11.65] Diagnosis: Essential (primary) hypertension[ICD10: I10] Diagnosis: Major depressive disorder, single episode, unspecified[ICD10: F32.9] Cherri Bo MD, [facility] CPT-4: 83552 08/14/2015 ([id number]) 13284 EST. PATIENT, LEVEL IV Diagnosis: Essential (primary) hypertension[ICD10: I10] Diagnosis: Type 2 diabetes mellitus with hyperglycemia[ICD10: E11.65] Diagnosis: Major depressive disorder, single episode, unspecified[ICD10: F32.9] Diagnosis: Dysuria[ICD10: R30.0] Cherri Bo MD, [facility] CPT-4: 09433 07/31/2015 ([id number]) 22421 EST. PATIENT, LEVEL IV Diagnosis: Type 2 diabetes mellitus with hyperglycemia[ICD10: E11.65] Diagnosis: Essential (primary) hypertension[ICD10: I10] Diagnosis: Major depressive disorder, single episode, unspecified[ICD10: F32.9] Cherri Bo MD, [facility] CPT-4: 64078 07/03/2015 ([id number]) 36306 EST. PATIENT, LEVEL IV Diagnosis: Type 2 diabetes mellitus with hyperglycemia[ICD10: E11.65] Diagnosis: Essential (primary) hypertension[ICD10: I10] Diagnosis: Hyperlipidemia, unspecified[ICD10: E78.5] Diagnosis: Hypothyroidism, unspecified[ICD10: E03.9] [facility] CPT-4: 92958 06/26/2015 ([id number]) OFFICE VISIT, NEW - LEVEL 4 Diagnosis: Diabetes mellitus[ICD9: 250.00] Diagnosis: Right shoulder pain[ICD9: 719.41] Diagnosis: Sinus congestion[ICD9: 478.19] Diagnosis: Insomnia[ICD9: 780.52] [facility] CPT-4: 58962 12/12/2014 Plan of Care Planned Activity Notes Codes Status Date Patient Education: Patient Medication Summary Completed 11/23/2016 Care Plan: Iron Pending 11/23/2016 Care Plan: Ferritin Pending 11/23/2016 Care Plan: Tibc Pending 11/23/2016 Care Plan: B12 Pending 11/23/2016 Visit Plan: Hypertension - well [...] of control. 11/18/2016 Appointment: Cherri Batres WPtel: [address] [place], [place] [phone] (30 min) Complex 11/18/2016 Patient Education: Patient Medication Summary Completed 11/18/2016 Care Plan: SCREENINGMAMMOGRAPHYDIGITAL LOINC : 74007-1 Pending 11/18/2016 Appointment: Cherri Batres WPtel: [address] [place], [place] [phone] (30 min) Complex 06/01/2016 [facility]ment[facility] [phone] [phone] (30 min) Complex 05/13/2016 Visit Plan: [...] 12/12/2014 Care Plan: Referral Order SNOMED-CT : [id number] Ordered 12/12/2014 Referral: Ronan Demarco Referral Completed [...] DUE MAMMOGRAM -ORDER PROVIDED REFILL XANAX TO ANTONINO . Hypertension - well controlled - continue [...]
--- OUTSIDE RECORDS SUMMARY | 2018-11-03 13:28 | XMS REPORT | CCD ---
Author Author Cathy Navas MD, [facility] Address [address] [place] [address] Phone Care Team Providers Care Line Leader Name Role Phone PP Unavailable CCM Unavailable Summary Purpose Interface Exchange Insurance Providers Payer name Policy type / Coverage type Covered libertarian ID Effective Begin Date Effective End Date [employer] WORKERS Medicare Part B [id number] Unknown Unknown WPS Medicare Part B Medicare Part B [id number] Unknown Unknown Family history Mother Diagnosis Age At Onset Heart Attack Unknown Son Diagnosis Age At Onset Cancer Unknown Social History Social History Element Codes Description Effective Dates Number of children Unknown 2 12/12/[address]: 444560664 Never smoker 12/12/[address]: 496459977 Never drinks alcohol 12/12/2014 Allergies, Adverse Reactions, Alerts Allergies, Adverse Reactions, Alerts data not found Past Medical History Illness Codes Condition Status Onset Date Resolved Date Encounter for screening mammogram for malignant neoplasm [...] Problems Condition Codes Effective Dates Condition Status Encounter for screening mammogram for malignant neoplasm [...] Fill Instructions glipizide 5 mg tablet RxNorm: 200903 1/2 Tablet(s) PO daily 11/18/2016 No Stop Date Active Synthroid 50 mcg tablet RxNorm: 292217 1 Tablet(s) PO daily 11/18/2016 11/12/2017 Active Lexapro 5 mg tablet RxNorm: 940168 TAKE 1 TABLET EVERY EVENING 08/03/2016 11/17/2016 Inactive alprazolam 0.5 mg tablet RxNorm: 838077 1 Tablet(s) PO BID as needed 04/12/2016 10/08/2016 Inactive Synthroid 50 mcg tablet RxNorm: 145424 1 Tablet(s) PO daily 04/12/2016 11/17/2016 Inactive Synthroid 50 mcg tablet RxNorm: 601959 1 Tablet(s) PO daily 04/09/2016 04/11/2016 Inactive Synthroid 50 mcg tablet RxNorm: 485273 1 Tablet(s) PO daily 01/05/2016 04/08/2016 Inactive Synthroid 50 mcg tablet RxNorm: 649958 1 Tablet(s) PO daily 01/05/2016 01/04/2016 Inactive alprazolam 0.5 mg tablet RxNorm: 798441 1 Tablet(s) PO BID as needed 01/05/2016 04/03/2016 Inactive alprazolam 0.5 mg tablet RxNorm: 663023 1 Tablet(s) PO BID as needed 09/12/2015 12/10/2015 Inactive Humalog 100 unit/mL subcutaneous solution RxNorm: 939458 Unit(s) SQ PRN 09/12/2015 12/11/2015 Inactive alprazolam 0.5 mg tablet RxNorm: 133365 1 Tablet(s) PO BID as needed 08/14/2015 09/11/2015 Inactive Cymbalta 30 mg capsule,delayed release RxNorm: 961889 1 Capsule(s) PO daily 08/14/2015 09/11/2015 Inactive Cymbalta 30 mg capsule,delayed release RxNorm: 237157 1 Capsule(s) PO daily 07/31/2015 08/13/2015 Inactive Trulicity 0.75 mg/0.5 mL subcutaneous pen injector RxNorm: 2456752 1/2 Milliliter(s) SQ QW 07/03/2015 08/13/2015 Inactive Synthroid 50 mcg tablet RxNorm: 638657 1 Tablet(s) PO daily 07/03/2015 01/04/2016 Inactive Lexapro 5 mg tablet RxNorm: 077780 1 Tablet(s) PO QPM 07/03/2015 08/13/2015 Inactive Climara 0.05 mg/24 hr transdermal patch RxNorm: 087728 1 Patch TD QW 07/03/2015 11/17/2016 Inactive Climara 0.05 mg/24 hr transdermal patch RxNorm: 118155 1 Patch TD QW 06/26/2015 06/25/2015 Inactive Climara 0.05 mg/24 hr transdermal patch RxNorm: 890799 1 Patch TD QW 06/26/2015 07/02/2015 Inactive metoprolol succinate ER 25 mg tablet,extended release 24 hr RxNorm: 013307 1 Tablet(s) PO daily 06/26/2015 06/26/2015 Inactive Humalog 100 unit/mL subcutaneous solution RxNorm: 460561 Unit(s) SQ PRN 02/03/2015 07/02/2015 Inactive Remeron 15 mg tablet RxNorm: 476576 1/2 Tablet(s) PO QHS 12/23/2014 06/25/2015 Inactive no refilled- direction change Remeron 15 mg tablet RxNorm: 449727 1 Tablet(s) PO QHS 12/18/2014 12/17/2014 Inactive Remeron 15 mg tablet RxNorm: 696267 1 Tablet(s) PO QHS 12/18/2014 12/22/2014 Inactive Flonase Allergy Relief 50 mcg/actuation nasal spray,suspension RxNorm: [address] [place] NASAL daily 12/12/2014 03/11/2015 Inactive aspirin 81 mg tablet RxNorm: 308790 1 Tablet(s) PO daily No Start Date Active fenofibrate nanocrystallized 145 mg tablet RxNorm: 019619 1 Tablet(s) PO daily No Start Date Active Coreg CR 20 mg capsule, extended release RxNorm: 771885 1 Capsule(s) PO daily No Start Date Active amlodipine 5 mg tablet RxNorm: 241223 1 Tablet(s) PO daily No Start Date Active lisinopril 40 mg tablet RxNorm: 413904 1 Tablet(s) PO daily No Start Date Active Crestor 20 mg tablet RxNorm: 041307 1 Tablet(s) PO daily No Start Date Active spironolactone 25 mg tablet RxNorm: 104190 1 Tablet(s) PO PRN No Start Date 12/13/2014 Inactive telmisartan 80 mg tablet RxNorm: 358916 1 Tablet(s) PO daily No Start Date 11/17/2016 Inactive Humalog 100 unit/mL subcutaneous solution RxNorm: 397503 Unit(s) SQ PRN No Start Date 02/02/2015 Inactive alprazolam 0.5 mg tablet RxNorm: 854709 1 Tablet(s) PO TID as needed No Start Date 08/13/2015 Inactive glipizide ER 2.5 mg tablet, extended release 24 hr RxNorm: 487296 1 Tablet(s) PO daily No Start Date 01/04/2016 Inactive Vitamin B-12 1,000 mcg/mL oral drops RxNorm: 9343477 1 Milliliter(s) PO daily Start once patient runs out of the 1,000 mcg tabs. No Start Date 11/17/2016 Inactive gabapentin 300 mg capsule RxNorm: 662704 1 Capsule(s) PO BID No Start Date 11/17/2016 Inactive meloxicam 15 mg tablet RxNorm: 815829 1 Tablet(s) PO BID No Start Date 07/30/2015 Inactive Coreg CR 20 mg capsule, extended release RxNorm: 123326 1 Capsule(s) PO daily No Start Date 06/25/2015 Inactive Climara 0.1 mg/24 hr transdermal patch RxNorm: 360221 1 TD QW No Start Date 06/25/2015 Inactive levothyroxine 50 mcg tablet RxNorm: 037928 1 Tablet(s) PO daily No Start Date 07/03/2015 Inactive Vitamin D2 1,000 unit capsule RxNorm: 523775 1 Capsule(s) PO daily No Start Date 11/17/2016 Inactive Fish Oil 1,000 mg capsule RxNorm: 1 Capsule(s) PO daily No Start Date 11/17/2016 Inactive glipizide 5 mg tablet RxNorm: 304567 1 Tablet(s) PO daily No Start Date 11/17/2016 Inactive Medication Administered No Medication Administered data Immunizations Vaccine Codes Date Status Pneumococcal (Adult) CVX: 133 01/05/2016 completed Influenza CVX: 141 02/06/2014 completed Assessments Condition Codes Effective Dates Type 2 diabetes mellitus with hyperglycemia ICD-10: [...] Observation Code Item Item Code Result Date %Hba1C Blv642 % HbA1c 88696- 6 7.3 % 09/24/2015 %Hba1C Zmp240 Gluc Ave 163 mg/dL 09/24/2015 Cbc With [...] 31.6 pg 09/24/2015 Cbc With Differential Ord2 [place]% 10.1 % 09/24/2015 Cbc With Differential Ord2 [...] 2.66 K/ul 09/24/2015 Cbc With Differential Ord2 [place] ABS# 0.6 K/ul 09/24/2015 Cbc With Differential [...] Lipid Ord30 C/HDL 3.2 Ratio 09/12/2015 Hepatic Alh959 ALBUMIN 4.2 g/dL 09/12/2015 Hepatic Frh443 TPRO 6.5 g/dL 09/12/2015 Hepatic Wwi846 GLOB 2.3 g/dL 09/12/2015 Hepatic Wrd195 A/G Ratio 1.8 Ratio 09/12/2015 Hepatic Fsb809 ALK PHOS 33 U/L 09/12/2015 Hepatic Zkf275 ALT(SGPT) 27 U/L 09/12/2015 Hepatic Not157 AST(SGOT) 14 U/L 09/12/2015 Hepatic Udk663 BILI T 0.3 mg/dL 09/12/2015 Hepatic Rgv889 BILI D 0.1 mg/dL 09/12/2015 Hepatic Cdf888 BILI I 0.2 mg/dL 09/12/2015 Review of [...] clear 11/18/2016 None Full Exam - General 1995 Ears/Nose/Throat lips/teeth/gingiva Overall: benign lips 11/18/2016 None Full Exam - General 1994 Ears/Nose/Throat lips/teeth/gingiva Overall: normal dentition 11/18/2016 None Full Exam - General 1995 Ears/Nose/Throat lips/teeth/gingiva Overall: benign gingiva 11/18/2016 None [...] Model/CDA Sections, Assigned to/Navya Medellin SNOMED CT: 30015867 CPT-4: 44056Gwzovzn 01/05/2016 ADMIN PNEUMOCOCCAL VACCINE SNOMED CT: 51280147 CPT-4: T4264Vhlozll 01/05/2016 Vital Signs Date Vital 11/18/2016 Blood Pressure 1: 124/70 Code: 8480-6 BMI: 20.5 Code: 46736-6 Heart Rate 1: 68 bpm Height: 5'2" SpO2: 98% Weight: 112 lbs 01/05/2016 Blood Pressure 1: 120/68 Code: 8480-6 BMI: 21.6 Code: 13474-1 Heart Rate 1: 72 bpm Height: 5'2" SpO2: 96% Weight: 118 lbs 09/12/2015 Blood Pressure 1: 132/70 Code: 8480-6 BMI: 20.3 Code: 05654-0 Heart Rate 1: 64 bpm Height: 5'2" SpO2: 97% Weight: 111 lbs 08/14/2015 Blood Pressure 1: 128/70 Code: 8480-6 BMI: 21.0 Code: 58207-8 Heart Rate 1: 76 bpm Height: 5'2" Weight: 115 lbs 07/31/2015 Blood Pressure 1: 130/70 Code: 8480-6 BMI: 20.9 Code: 49918-7 Heart Rate 1: 84 bpm Height: 5'2" SpO2: 94% Weight: 114 lbs 07/03/2015 Blood Pressure 1: 148/60 Code: 8480-6 BMI: 21.0 Code: 75001-4 Heart Rate 1: 69 bpm Height: 5'2" SpO2: 99% Weight: 115 lbs 06/26/2015 Blood Pressure 1: 150/68 Code: 8480-6 BMI: 21.5 Code: 39256-7 Heart Rate 1: 73 bpm Height: 5'2" SpO2: 97% Weight: 117 lbs 8 oz 12/12/2014 Blood Pressure 1: 118/52 Code: 8480-6 BMI: 20.5 Code: 10781-0 Heart Rate 1: 73 bpm Height: 5'2" [...] Directive data Encounters Encounter Performer Location Codes ([id number]) 41751 EST. PATIENT, LEVEL IV Diagnosis: Type 2 diabetes mellitus with hyperglycemia[ICD10: E11.65] Diagnosis: Hypothyroidism, unspecified[ICD10: E03.9] Diagnosis: Essential (primary) hypertension[ICD10: I10] Diagnosis: Encounter for screening mammogram for malignant neoplasm of breast[ICD10: Z12.31] Cherri Bo MD, [facility] CPT-4: 84949 11/18/2016 ([id number]) 65592 EST. PATIENT, LEVEL IV Diagnosis: Essential (primary) hypertension[ICD10: I10] Diagnosis: Hypothyroidism, unspecified[ICD10: E03.9] Diagnosis: Type 2 diabetes mellitus with hyperglycemia[ICD10: E11.65] Diagnosis: Encounter for immunization[ICD10: Z23] Cherri Bo MD, [facility] CPT-4: 20680 01/05/2016 ([id number]) 08189 EST. PATIENT, LEVEL IV Diagnosis: Type 2 diabetes mellitus with hyperglycemia[ICD10: E11.65] Diagnosis: Encounter for screening mammogram for malignant neoplasm of breast[ICD10: Z12.31] Diagnosis: Essential (primary) hypertension[ICD10: I10] Diagnosis: Hyperlipidemia, unspecified[ICD10: E78.5] Cherri Bo MD, [facility] CPT-4: 11212 09/12/2015 ([id number]) 07098 EST. PATIENT, LEVEL IV Diagnosis: Type 2 diabetes mellitus with hyperglycemia[ICD10: E11.65] Diagnosis: Essential (primary) hypertension[ICD10: I10] Diagnosis: Major depressive disorder, single episode, unspecified[ICD10: F32.9] Cherri Bo MD, [facility] CPT-4: 90389 08/14/2015 ([id number]) 07751 EST. PATIENT, LEVEL IV Diagnosis: Essential (primary) hypertension[ICD10: I10] Diagnosis: Type 2 diabetes mellitus with hyperglycemia[ICD10: E11.65] Diagnosis: Major depressive disorder, single episode, unspecified[ICD10: F32.9] Diagnosis: Dysuria[ICD10: R30.0] Cherri Bo MD, [facility] CPT-4: 45772 07/31/2015 ([id number]) 53100 EST. PATIENT, LEVEL IV Diagnosis: Type 2 diabetes mellitus with hyperglycemia[ICD10: E11.65] Diagnosis: Essential (primary) hypertension[ICD10: I10] Diagnosis: Major depressive disorder, single episode, unspecified[ICD10: F32.9] Cherri Bo MD, [facility] CPT-4: 35907 07/03/2015 ([id number]) 54238 EST. PATIENT, LEVEL IV Diagnosis: Type 2 diabetes mellitus with hyperglycemia[ICD10: E11.65] Diagnosis: Essential (primary) hypertension[ICD10: I10] Diagnosis: Hyperlipidemia, unspecified[ICD10: E78.5] Diagnosis: Hypothyroidism, unspecified[ICD10: E03.9] Cherri Bo MD, [facility] CPT-4: 26478 06/26/2015 ([id number]) OFFICE VISIT, NEW - LEVEL 4 Diagnosis: Diabetes mellitus[ICD9: 250.00] Diagnosis: Right shoulder pain[ICD9: 719.41] Diagnosis: Sinus congestion[ICD9: 478.19] Diagnosis: Insomnia[ICD9: 780.52] Cathy Bo MD, [facility] CPT-4: 36628 12/12/2014 Plan of Care Planned Activity Notes Codes Status Date Visit Plan: Hypertension - well controlled - [...] of control. 11/18/2016 Appointment: Cherri Batres WPtel: [address] [place], [place] [phone] (30 min) Complex 11/18/2016 Patient Education: Patient Medication Summary Completed 11/18/2016 Care Plan: Comp Metabolic Pending 11/18/2016 Care Plan: Cbc With Differential Pending 11/18/2016 Care Plan: %Hba1C LOINC : 95449-8 Pending 11/18/2016 Care Plan: Tsh Pending 11/18/2016 Care Plan: Lipid Pending 11/18/2016 Care Plan: Free T4 Pending 11/18/2016 Care Plan: SCREENINGMAMMOGRAPHYDIGITAL LOINC : 83706-5 Pending 11/18/2016 Appointment: Cherri Batres WPtel: [phone] [phone] (30 min) Complex 06/01/2016 Appointment: Cherri Batres WPtel: [phone] [phone] (30 min) Complex 05/13/2016 Visit Plan: Hypertension [...] levels of control.Diabetes Mellitus - sees Dr Whiteside- I have [...] levels of control.Diabetes Mellitus - sees Dr Whiteside- I have [...] 12/12/2014 Care Plan: Referral Order SNOMED-CT : [id number] Ordered 12/12/2014 Referral: Ronan Demarco Referral Completed [...] control. Diabetes Mellitus - sees Dr Whiteside- Aisha have recommended for the patient to have [...]
--- OUTSIDE RECORDS SUMMARY | 2018-11-03 13:29 | XMS REPORT | CCD ---
Author Author Cathy Navas MD, [facility] Address [address] [place] [address] Phone Care Team Providers Care Loop Machine Operator Name Role Phone PP Unavailable CCM Unavailable Summary Purpose Interface Exchange Insurance Providers Payer name Policy type / Coverage type Covered constitution party ID Effective Begin Date Effective End Date [employer] WORK[employer] Medicare Part B [id number] Unknown Unknown WPS Medicare Part B Medicare Part B [id number] Unknown Unknown Family history Mother Diagnosis Age At Onset Heart Attack Unknown Son Diagnosis Age At Onset Cancer Unknown Social History Social History Element Codes Description Effective Dates Number of children Unknown 2 12/12/[address]: 250317232 Never smoker 12/12/[address]: 746134031 Never drinks alcohol 12/12/2014 Allergies, Adverse Reactions, [...] Fill Instructions glipizide 5 mg tablet RxNorm: 430359 1/2 Tablet(s) PO daily 11/18/2016 No Stop Date Active Synthroid 50 mcg tablet RxNorm: 207208 1 Tablet(s) PO daily 11/18/2016 11/12/2017 Active Lexapro 5 mg tablet RxNorm: 603197 TAKE 1 TABLET EVERY EVENING 08/03/2016 11/17/2016 Inactive alprazolam 0.5 mg tablet RxNorm: 948466 1 Tablet(s) PO BID as needed 04/12/2016 10/08/2016 Inactive Synthroid 50 mcg tablet RxNorm: 110080 1 Tablet(s) PO daily 04/12/2016 11/17/2016 Inactive Synthroid 50 mcg tablet RxNorm: 796538 1 Tablet(s) PO daily 04/09/2016 04/11/2016 Inactive Synthroid 50 mcg tablet RxNorm: 707072 1 Tablet(s) PO daily 01/05/2016 04/08/2016 Inactive Synthroid 50 mcg tablet RxNorm: 088465 1 Tablet(s) PO daily 01/05/2016 01/04/2016 Inactive alprazolam 0.5 mg tablet RxNorm: 637550 1 Tablet(s) PO BID as needed 01/05/2016 04/03/2016 Inactive alprazolam 0.5 mg tablet RxNorm: 736408 1 Tablet(s) PO BID as needed 09/12/2015 12/10/2015 Inactive Humalog 100 unit/mL subcutaneous solution RxNorm: 787894 Unit(s) SQ PRN 09/12/2015 12/11/2015 Inactive alprazolam 0.5 mg tablet RxNorm: 380001 1 Tablet(s) PO BID as needed 08/14/2015 09/11/2015 Inactive Cymbalta 30 mg capsule,delayed release RxNorm: 551552 1 Capsule(s) PO daily 08/14/2015 09/11/2015 Inactive Cymbalta 30 mg capsule,delayed release RxNorm: 214674 1 Capsule(s) PO daily 07/31/2015 08/13/2015 Inactive Trulicity 0.75 mg/0.5 mL subcutaneous pen injector RxNorm: 3152799 1/2 Milliliter(s) SQ QW 07/03/2015 08/13/2015 Inactive Synthroid 50 mcg tablet RxNorm: 209442 1 Tablet(s) PO daily 07/03/2015 01/04/2016 Inactive Lexapro 5 mg tablet RxNorm: 420619 1 Tablet(s) PO QPM 07/03/2015 08/13/2015 Inactive Climara 0.05 mg/24 hr transdermal patch RxNorm: 377556 1 Patch TD QW 07/03/2015 11/17/2016 Inactive Climara 0.05 mg/24 hr transdermal patch RxNorm: 169715 1 Patch TD QW 06/26/2015 06/25/2015 Inactive Climara 0.05 mg/24 hr transdermal patch RxNorm: 098560 1 Patch TD QW 06/26/2015 07/02/2015 Inactive metoprolol succinate ER 25 mg tablet,extended release 24 hr RxNorm: 972782 1 Tablet(s) PO daily 06/26/2015 06/26/2015 Inactive Humalog 100 unit/mL subcutaneous solution RxNorm: 825209 Unit(s) SQ PRN 02/03/2015 07/02/2015 Inactive Remeron 15 mg tablet RxNorm: 323457 1/2 Tablet(s) PO QHS 12/23/2014 06/25/2015 Inactive no refilled- direction change Remeron 15 mg tablet RxNorm: 446712 1 Tablet(s) PO QHS 12/18/2014 12/17/2014 Inactive Remeron 15 mg tablet RxNorm: 290056 1 Tablet(s) PO QHS 12/18/2014 12/22/2014 Inactive Flonase Allergy Relief 50 mcg/actuation nasal spray,suspension RxNorm: 2 [place] NASAL daily 12/12/2014 03/11/2015 Inactive aspirin 81 mg tablet RxNorm: 111443 1 Tablet(s) PO daily No Start Date Active fenofibrate nanocrystallized 145 mg tablet RxNorm: 878557 1 Tablet(s) PO daily No Start Date Active Coreg CR 20 mg capsule, extended release RxNorm: 046253 1 Capsule(s) PO daily No Start Date Active amlodipine 5 mg tablet RxNorm: 963239 1 Tablet(s) PO daily No Start Date Active lisinopril 40 mg tablet RxNorm: 628380 1 Tablet(s) PO daily No Start Date Active Crestor 20 mg tablet RxNorm: 130205 1 Tablet(s) PO daily No Start Date Active spironolactone 25 mg tablet RxNorm: 307145 1 Tablet(s) PO PRN No Start Date 12/13/2014 Inactive telmisartan 80 mg tablet RxNorm: 053719 1 Tablet(s) PO daily No Start Date 11/17/2016 Inactive Humalog 100 unit/mL subcutaneous solution RxNorm: 345029 Unit(s) SQ PRN No Start Date 02/02/2015 Inactive alprazolam 0.5 mg tablet RxNorm: 843369 1 Tablet(s) PO TID as needed No Start Date 08/13/2015 Inactive glipizide ER 2.5 mg tablet, extended release 24 hr RxNorm: 013099 1 Tablet(s) PO daily No Start Date 01/04/2016 Inactive Vitamin B-12 1,000 mcg/mL oral drops RxNorm: 4674926 1 Milliliter(s) PO daily Start once patient runs out of the 1,000 mcg tabs. No Start Date 11/17/2016 Inactive gabapentin 300 mg capsule RxNorm: 530836 1 Capsule(s) PO BID No Start Date 11/17/2016 Inactive meloxicam 15 mg tablet RxNorm: 311215 1 Tablet(s) PO BID No Start Date 07/30/2015 Inactive Coreg CR 20 mg capsule, extended release RxNorm: 113746 1 Capsule(s) PO daily No Start Date 06/25/2015 Inactive Climara 0.1 mg/24 hr transdermal patch RxNorm: 930989 1 TD QW No Start Date 06/25/2015 Inactive levothyroxine 50 mcg tablet RxNorm: 962014 1 Tablet(s) PO daily No Start Date 07/03/2015 Inactive Vitamin D2 1,000 unit capsule RxNorm: 230756 1 Capsule(s) PO daily No Start Date 11/17/2016 Inactive Fish Oil 1,000 mg capsule RxNorm: 1 Capsule(s) PO daily No Start Date 11/17/2016 Inactive glipizide 5 mg tablet RxNorm: 166658 1 Tablet(s) PO daily No Start Date [...] Code Item Item Code Result Date %Hba1C Kvl042 % HbA1c 61872- 6 7.3 % 09/24/2015 %Hba1C Ydk194 Gluc Ave 163 mg/dL 09/24/2015 Cbc With [...] 31.6 pg 09/24/2015 Cbc With Differential Ord2 [place]% 10.1 % 09/24/2015 Cbc With Differential Ord2 [...] 2.66 K/ul 09/24/2015 Cbc With Differential Ord2 [place] ABS# 0.6 K/ul 09/24/2015 Cbc With Differential [...] Lipid Ord30 C/HDL 3.2 Ratio 09/12/2015 Hepatic Noz848 ALBUMIN 4.2 g/dL 09/12/2015 Hepatic Vza029 TPRO 6.5 g/dL 09/12/2015 Hepatic Dqd236 GLOB 2.3 g/dL 09/12/2015 Hepatic Xlt220 A/G Ratio 1.8 Ratio 09/12/2015 Hepatic Fev462 ALK PHOS 33 U/L 09/12/2015 Hepatic Qlo539 ALT(SGPT) 27 U/L 09/12/2015 Hepatic Jeh844 AST(SGOT) 14 U/L 09/12/2015 Hepatic Wrw457 BILI T 0.3 mg/dL 09/12/2015 Hepatic Ymp411 BILI D 0.1 mg/dL 09/12/2015 Hepatic Syo355 BILI I 0.2 mg/dL 09/12/2015 Review of [...] Model/CDA Sections, Assigned to/Navya Medellin SNOMED CT: 71357614 CPT-4: 09367Oxefgog 01/05/2016 ADMIN PNEUMOCOCCAL VACCINE SNOMED CT: 79347860 CPT-4: M5556Afewbmw 01/05/2016 Vital Signs Date Vital 11/18/2016 Blood Pressure 1: 124/70 Code: 8480-6 BMI: 20.5 Code: 72356-5 Heart Rate 1: 68 bpm Height: 5'2" SpO2: 98% Weight: 112 lbs 01/05/2016 Blood Pressure 1: 120/68 Code: 8480-6 BMI: 21.6 Code: 88206-8 Heart Rate 1: 72 bpm Height: 5'2" SpO2: 96% Weight: 118 lbs 09/12/2015 Blood Pressure 1: 132/70 Code: 8480-6 BMI: 20.3 Code: 23071-5 Heart Rate 1: 64 bpm Height: 5'2" SpO2: 97% Weight: 111 lbs 08/14/2015 Blood Pressure 1: 128/70 Code: 8480-6 BMI: 21.0 Code: 32691-4 Heart Rate 1: 76 bpm Height: 5'2" Weight: 115 lbs 07/31/2015 Blood Pressure 1: 130/70 Code: 8480-6 BMI: 20.9 Code: 45183-7 Heart Rate 1: 84 bpm Height: 5'2" SpO2: 94% Weight: 114 lbs 07/03/2015 Blood Pressure 1: 148/60 Code: 8480-6 BMI: 21.0 Code: 58329-0 Heart Rate 1: 69 bpm Height: 5'2" SpO2: 99% Weight: 115 lbs 06/26/2015 Blood Pressure 1: 150/68 Code: 8480-6 BMI: 21.5 Code: 82965-6 Heart Rate 1: 73 bpm Height: 5'2" SpO2: 97% Weight: 117 lbs 8 oz 12/12/2014 Blood Pressure 1: 118/52 Code: 8480-6 BMI: 20.5 Code: 90682-1 Heart Rate 1: 73 bpm Height: 5'2" [...] Directive data Encounters Encounter Performer Location Codes ([id number]) 69091 EST. PATIENT, LEVEL IV Diagnosis: Type 2 diabetes mellitus with hyperglycemia[ICD10: E11.65] Diagnosis: Hypothyroidism, unspecified[ICD10: E03.9] Diagnosis: Essential (primary) hypertension[ICD10: I10] Diagnosis: Encounter for screening mammogram for malignant neoplasm of breast[ICD10: Z12.31] Cherri Bo MD, [facility] CPT-4: 96417 11/18/2016 ([id number]) 09614 EST. PATIENT, LEVEL IV Diagnosis: Essential (primary) hypertension[ICD10: I10] Diagnosis: Hypothyroidism, unspecified[ICD10: E03.9] Diagnosis: Type 2 diabetes mellitus with hyperglycemia[ICD10: E11.65] Diagnosis: Encounter for immunization[ICD10: Z23] Cherri Bo MD, [facility] CPT-4: 28752 01/05/2016 ([id number]) 86830 EST. PATIENT, LEVEL IV Diagnosis: Type 2 diabetes mellitus with hyperglycemia[ICD10: E11.65] Diagnosis: Encounter for screening mammogram for malignant neoplasm of breast[ICD10: Z12.31] Diagnosis: Essential (primary) hypertension[ICD10: I10] Diagnosis: Hyperlipidemia, unspecified[ICD10: E78.5] Cherri Bo MD, [facility] CPT-4: 17956 09/12/2015 ([id number]) 23540 EST. PATIENT, LEVEL IV Diagnosis: Type 2 diabetes mellitus with hyperglycemia[ICD10: E11.65] Diagnosis: Essential (primary) hypertension[ICD10: I10] Diagnosis: Major depressive disorder, single episode, unspecified[ICD10: F32.9] Cherri Bo MD, [facility] CPT-4: 86131 08/14/2015 ([id number]) 87268 EST. PATIENT, LEVEL IV Diagnosis: Essential (primary) hypertension[ICD10: I10] Diagnosis: Type 2 diabetes mellitus with hyperglycemia[ICD10: E11.65] Diagnosis: Major depressive disorder, single episode, unspecified[ICD10: F32.9] Diagnosis: Dysuria[ICD10: R30.0] Cherri Bo MD, [facility] CPT-4: 41147 07/31/2015 ([id number]) 84064 EST. PATIENT, LEVEL IV Diagnosis: Type 2 diabetes mellitus with hyperglycemia[ICD10: E11.65] Diagnosis: Essential (primary) hypertension[ICD10: I10] Diagnosis: Major depressive disorder, single episode, unspecified[ICD10: F32.9] Cherri Bo MD, [facility] CPT-4: 25598 07/03/2015 ([id number]) 74750 EST. PATIENT, LEVEL IV Diagnosis: Type 2 diabetes mellitus with hyperglycemia[ICD10: E11.65] Diagnosis: Essential (primary) hypertension[ICD10: I10] Diagnosis: Hyperlipidemia, unspecified[ICD10: E78.5] Diagnosis: Hypothyroidism, unspecified[ICD10: E03.9] Cherri Bo MD, [facility] CPT-4: 48054 06/26/2015 ([id number]) OFFICE VISIT, NEW - LEVEL 4 Diagnosis: Diabetes mellitus[ICD9: 250.00] Diagnosis: Right shoulder pain[ICD9: 719.41] Diagnosis: Sinus congestion[ICD9: 478.19] Diagnosis: Insomnia[ICD9: 780.52] Cathy Bo MD, [facility] CPT-4: 45238 12/12/2014 Plan of Care Planned Activity Notes [...] based on previous levels of control. 11/18/2016 Patient Education: Patient Medication Summary Completed 11/18/2016 Care Plan: Comp Metabolic Pending 11/18/2016 Care Plan: Cbc With Differential Pending 11/18/2016 Care Plan: %Hba1C [facility] : 50359-3 Pending 11/18/2016 Care Plan: Tsh Pending 11/18/2016 Care Plan: Lipid Pending 11/18/2016 Care Plan: Free T4 Pending 11/18/2016 Care Plan: SCREENINGMAMMOGRAPHYDIGITAL [facility] : 78590-3 Pending 11/18/2016 Appointment: BatresCherri WPtel: [address] [phone] [place] (30 min) Complex 06/01/2016 Appointment: Medardo Cherri WPtel: [phone] [phone] (30 min) Complex 05/13/2016 Visit Plan: [...] 12/12/2014 Care Plan: Referral Order SNOMED-CT : [id number] Ordered 12/12/2014 Referral: Ronan Demarco Referral Completed [...] less controlled. RECOMMEND FLU VACCINE END OF /FEBRUARY . Hypertension - well controlled - continue [...]
--- OUTSIDE RECORDS SUMMARY | 2018-11-03 13:30 | XMS REPORT | CCD ---
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 Name Role Phone PP Unavailable CCM Unavailable Summary Purpose Interface Exchange Insurance Providers Payer name Policy type / Coverage type Covered constitution party ID Effective Begin Date Effective End Date [employer] Medicare Part B [id number] Unknown Unknown WPS Medicare Part B Medicare Part B [id number] Unknown Unknown Family history Mother Diagnosis Age At Onset Heart Attack Unknown Son Diagnosis Age At Onset Cancer Unknown Social History Social History Element Codes Description Effective Dates Number of children Unknown 2 12/12/[address]: 866364047 Never smoker 12/12/[address]: 344719361 Never drinks alcohol 12/12/2014 Allergies, Adverse Reactions, [...] Start Date Stop Date Status Fill Instructions Synthroid 50 mcg tablet RxNorm: 522706 TAKE 1 TABLET DAILY 05/26/2017 05/20/2018 Active alprazolam 0.5 mg tablet RxNorm: 182818 1 Tablet(s) PO BID as needed 12/21/2016 01/19/2017 Inactive glipizide 5 mg tablet RxNorm: 364924 1/2 Tablet(s) PO daily 11/18/2016 No Stop Date Active Synthroid 50 mcg tablet RxNorm: 367224 1 Tablet(s) PO daily 11/18/2016 11/12/2017 Active Lexapro 5 mg tablet RxNorm: 309207 TAKE 1 TABLET EVERY EVENING 08/03/2016 11/17/2016 Inactive Synthroid 50 mcg tablet RxNorm: 240268 1 Tablet(s) PO daily 04/12/2016 11/17/2016 Inactive alprazolam 0.5 mg tablet RxNorm: 996188 1 Tablet(s) PO BID as needed 04/12/2016 10/08/2016 Inactive Synthroid 50 mcg tablet RxNorm: 432278 1 Tablet(s) PO daily 04/09/2016 04/11/2016 Inactive Synthroid 50 mcg tablet RxNorm: 002966 1 Tablet(s) PO daily 01/05/2016 04/08/2016 Inactive Synthroid 50 mcg tablet RxNorm: 777040 1 Tablet(s) PO daily 01/05/2016 01/04/2016 Inactive alprazolam 0.5 mg tablet RxNorm: 546130 1 Tablet(s) PO BID as needed 01/05/2016 04/03/2016 Inactive alprazolam 0.5 mg tablet RxNorm: 614195 1 Tablet(s) PO BID as needed 09/12/2015 12/10/2015 Inactive Humalog 100 unit/mL subcutaneous solution RxNorm: 336776 Unit(s) SQ PRN 09/12/2015 12/11/2015 Inactive alprazolam 0.5 mg tablet RxNorm: 066964 1 Tablet(s) PO BID as needed 08/14/2015 09/11/2015 Inactive Cymbalta 30 mg capsule,delayed release RxNorm: 208565 1 Capsule(s) PO daily 08/14/2015 09/11/2015 Inactive Cymbalta 30 mg capsule,delayed release RxNorm: 082473 1 Capsule(s) PO daily 07/31/2015 08/13/2015 Inactive Trulicity 0.75 mg/0.5 mL subcutaneous pen injector RxNorm: 7646354 1/2 Milliliter(s) SQ QW 07/03/2015 08/13/2015 Inactive Synthroid 50 mcg tablet RxNorm: 073464 1 Tablet(s) PO daily 07/03/2015 01/04/2016 Inactive Lexapro 5 mg tablet RxNorm: 197524 1 Tablet(s) PO QPM 07/03/2015 08/13/2015 Inactive Climara 0.05 mg/24 hr transdermal patch RxNorm: 982898 1 Patch TD QW 07/03/2015 11/17/2016 Inactive Climara 0.05 mg/24 hr transdermal patch RxNorm: 902558 1 Patch TD QW 06/26/2015 06/25/2015 Inactive Climara 0.05 mg/24 hr transdermal patch RxNorm: 831819 1 Patch TD QW 06/26/2015 07/02/2015 Inactive metoprolol succinate ER 25 mg tablet,extended release 24 hr RxNorm: 858503 1 Tablet(s) PO daily 06/26/2015 06/26/2015 Inactive Humalog 100 unit/mL subcutaneous solution RxNorm: 233881 Unit(s) SQ PRN 02/03/2015 07/02/2015 Inactive Remeron 15 mg tablet RxNorm: 551276 1/2 Tablet(s) PO QHS 12/23/2014 06/25/2015 Inactive no refilled- direction change Remeron 15 mg tablet RxNorm: 015834 1 Tablet(s) PO QHS 12/18/2014 12/17/2014 Inactive Remeron 15 mg tablet RxNorm: 721545 1 Tablet(s) PO QHS 12/18/2014 12/22/2014 Inactive Flonase Allergy Relief 50 mcg/actuation nasal spray,suspension RxNorm: 2 [place] NASAL daily 12/12/2014 03/11/2015 Inactive aspirin 81 mg tablet RxNorm: 779867 1 Tablet(s) PO daily No Start Date Active fenofibrate nanocrystallized 145 mg tablet RxNorm: 043350 1 Tablet(s) PO daily No Start Date Active Coreg CR 20 mg capsule, extended release RxNorm: 579249 1 Capsule(s) PO daily No Start Date Active amlodipine 5 mg tablet RxNorm: 769228 1 Tablet(s) PO daily No Start Date Active lisinopril 40 mg tablet RxNorm: 439635 1 Tablet(s) PO daily No Start Date Active Crestor 20 mg tablet RxNorm: 558753 1 Tablet(s) PO daily No Start Date Active spironolactone 25 mg tablet RxNorm: 749250 1 Tablet(s) PO PRN No Start Date 12/13/2014 Inactive telmisartan 80 mg tablet RxNorm: 753782 1 Tablet(s) PO daily No Start Date 11/17/2016 Inactive Humalog 100 unit/mL subcutaneous solution RxNorm: 538226 Unit(s) SQ PRN No Start Date 02/02/2015 Inactive alprazolam 0.5 mg tablet RxNorm: 446334 1 Tablet(s) PO TID as needed No Start Date 08/13/2015 Inactive glipizide ER 2.5 mg tablet, extended release 24 hr RxNorm: 944723 1 Tablet(s) PO daily No Start Date 01/04/2016 Inactive Vitamin B-12 1,000 mcg/mL oral drops RxNorm: 6108240 1 Milliliter(s) PO daily Start once patient runs out of the 1,000 mcg tabs. No Start Date 11/17/2016 Inactive gabapentin 300 mg capsule RxNorm: 461046 1 Capsule(s) PO BID No Start Date 11/17/2016 Inactive meloxicam 15 mg tablet RxNorm: 931776 1 Tablet(s) PO BID No Start Date 07/30/2015 Inactive Coreg CR 20 mg capsule, extended release RxNorm: 133687 1 Capsule(s) PO daily No Start Date 06/25/2015 Inactive Climara 0.1 mg/24 hr transdermal patch RxNorm: 395016 1 TD QW No Start Date 06/25/2015 Inactive levothyroxine 50 mcg tablet RxNorm: 641074 1 Tablet(s) PO daily No Start Date 07/03/2015 Inactive Vitamin D2 1,000 unit capsule RxNorm: 436208 1 Capsule(s) PO daily No Start Date 11/17/2016 Inactive Fish Oil 1,000 mg capsule RxNorm: 1 Capsule(s) PO daily No Start Date 11/17/2016 Inactive glipizide 5 mg tablet RxNorm: 318248 1 Tablet(s) PO daily No Start Date [...] Tibc Ord40 Fe-%Sat 23.8 % 11/23/2016 B12 Lgq377 B12 232.00 pg/ml 11/23/2016 Comp Metabolic Egd658 NA 144 mEq/L 11/22/2016 Comp Metabolic Akl582 K 4.8 mEq/L 11/22/2016 Comp Metabolic Fkt630 CL 111 mEq/L 11/22/2016 Comp Metabolic Ges806 CO2 26.0 mEq/L 11/22/2016 Comp Metabolic Izj046 ANION GAP 12 11/22/2016 Comp Metabolic Xkh354 GLUCOSE 111 mg/dL 11/22/2016 Comp Metabolic Iyy470 Creat 1.3 mg/dL 11/22/2016 Comp Metabolic Ivz693 eGFR 41 ml/min/1.73m2 11/22/2016 Comp Metabolic Jvs143 BUN 38 mg/dL 11/22/2016 Comp Metabolic Hsv848 B/C Ratio 28.4 Ratio 11/22/2016 Comp Metabolic Zjo507 CALCIUM 10.0 mg/dL 11/22/2016 Comp Metabolic Tmq544 ALK PHOS 43 U/L 11/22/2016 Comp Metabolic Vxt532 AST(SGOT) 10 U/L 11/22/2016 Comp Metabolic Srd997 ALT(SGPT) 11 U/L 11/22/2016 Comp Metabolic Zfa426 BILI T 0.3 mg/dL 11/22/2016 Comp Metabolic Ngn082 ALBUMIN 3.8 g/dL 11/22/2016 Comp Metabolic Syd252 TPRO 6.1 g/dL 11/22/2016 Comp Metabolic Phr590 GLOB 2.3 g/dL 11/22/2016 Comp Metabolic Pyn166 A/G Ratio 1.7 Ratio 11/22/2016 Comp Metabolic Jkf247 Osmo 297 mOsmo 11/22/2016 Cbc With Differential [...] 31.6 pg 11/22/2016 Cbc With Differential Ord2 [place]% 10.4 % 11/22/2016 Cbc With Differential Ord2 [...] 2.46 K/ul 11/22/2016 Cbc With Differential Ord2 [place] ABS# 0.5 K/ul 11/22/2016 Cbc With Differential Ord2 Eos ABS# 0.4 K/ul 11/22/2016 Cbc With Differential Ord2 Baso ABS# 0.0 K/ul 11/22/2016 Lipid Ord30 CHOL 153 mg/dL 11/22/2016 Lipid Ord30 HDL 46.0 mg/dl 11/22/2016 Lipid Ord30 TRIG 150 mg/dL 11/22/2016 Lipid Ord30 LDL 77 mg/dL 11/22/2016 Lipid Ord30 C/HDL 3.3 Ratio 11/22/2016 %Hba1C Txy746 % HbA1c 57766- 6 6.7 % 11/22/2016 %Hba1C Fgq509 Gluc Ave 146 mg/dL 11/22/2016 Tsh Ord6 hTSH II 1.84 uIU/mL 11/22/2016 Free T4 Imf279 FREE T4 1.00 ng/dL 11/22/2016 %Hba1C Vtg751 % HbA1c 64254- 6 7.3 % 09/24/2015 %Hba1C Iwe647 Gluc Ave 163 mg/dL 09/24/2015 Cbc With [...] 31.6 pg 09/24/2015 Cbc With Differential Ord2 [place]% 10.1 % 09/24/2015 Cbc With Differential Ord2 [...] 2.66 K/ul 09/24/2015 Cbc With Differential Ord2 [place] ABS# 0.6 K/ul 09/24/2015 Cbc With Differential [...] Lipid Ord30 C/HDL 3.2 Ratio 09/12/2015 Hepatic Iso224 ALBUMIN 4.2 g/dL 09/12/2015 Hepatic Jzt149 TPRO 6.5 g/dL 09/12/2015 Hepatic Aza564 GLOB 2.3 g/dL 09/12/2015 Hepatic Cxv163 A/G Ratio 1.8 Ratio 09/12/2015 Hepatic Zhx659 ALK PHOS 33 U/L 09/12/2015 Hepatic Mgr035 ALT(SGPT) 27 U/L 09/12/2015 Hepatic Qlc651 AST(SGOT) 14 U/L 09/12/2015 Hepatic Ttd323 BILI T 0.3 mg/dL 09/12/2015 Hepatic Rub802 BILI D 0.1 mg/dL 09/12/2015 Hepatic Wtl648 BILI I 0.2 mg/dL 09/12/2015 Review of [...] lips 12/12/2014 None Full Exam - General 1995 Ears/Nose/Throat lips/teeth/gingiva Overall: no masses 12/12/2014 None [...] Model/CDA Sections, Assigned to/Navya Medellin SNOMED CT: 45285759 CPT-4: 12523Apdfskp 01/05/2016 ADMIN PNEUMOCOCCAL VACCINE SNOMED CT: 80011536 CPT-4: G0009 01/05/2016 Vital Signs Date Vital 11/18/2016 Blood Pressure 1: 124/70 Code: 8480-6 BMI: 20.5 Code: 88974-3 Heart Rate 1: 68 bpm Height: 5'2" SpO2: 98% Weight: 112 lbs 01/05/2016 Blood Pressure 1: 120/68 Code: 8480-6 BMI: 21.6 Code: 15445-1 Heart Rate 1: 72 bpm Height: 5'2" SpO2: 96% Weight: 118 lbs 09/12/2015 Blood Pressure 1: 132/70 Code: 8480-6 BMI: 20.3 Code: 55833-5 Heart Rate 1: 64 bpm Height: 5'2" SpO2: 97% Weight: 111 lbs 08/14/2015 Blood Pressure 1: 128/70 Code: 8480-6 BMI: 21.0 Code: 07017-2 Heart Rate 1: 76 bpm Height: 5'2" Weight: 115 lbs 07/31/2015 Blood Pressure 1: 130/70 Code: 8480-6 BMI: 20.9 Code: 30639-1 Heart Rate 1: 84 bpm Height: 5'2" SpO2: 94% Weight: 114 lbs 07/03/2015 Blood Pressure 1: 148/60 Code: 8480-6 BMI: 21.0 Code: 55200-1 Heart Rate 1: 69 bpm Height: 5'2" SpO2: 99% Weight: 115 lbs 06/26/2015 Blood Pressure 1: 150/68 Code: 8480-6 BMI: 21.5 Code: 41882-4 Heart Rate 1: 73 bpm Height: 5'2" SpO2: 97% Weight: 117 lbs 8 oz 12/12/2014 Blood Pressure 1: 118/52 Code: 8480-6 BMI: 20.5 Code: 37932-6 Heart Rate 1: 73 bpm Height: 5'2" [...] data Encounters Encounter Performer Location Codes Date ([id number]) [id number] EST. PATIENT, LEVEL IV Diagnosis: Type 2 diabetes mellitus with hyperglycemia[ICD10: E11.65] Diagnosis: Hypothyroidism, unspecified[ICD10: E03.9] Diagnosis: Essential (primary) hypertension[ICD10: I10] Diagnosis: Encounter for screening mammogram for malignant neoplasm of breast[ICD10: Z12.31] Cherri Bo MD, [facility] CPT-4: 29190 11/18/2016 ([id number]) 40746 EST. PATIENT, LEVEL IV Diagnosis: Essential (primary) hypertension[ICD10: I10] Diagnosis: Hypothyroidism, unspecified[ICD10: E03.9] Diagnosis: Type 2 diabetes mellitus with hyperglycemia[ICD10: E11.65] Diagnosis: Encounter for immunization[ICD10: Z23] Cherri Bo MD, [facility] CPT-4: 23010 01/05/2016 ([id number]) 59238 EST. PATIENT, LEVEL IV Diagnosis: Type 2 diabetes mellitus with hyperglycemia[ICD10: E11.65] Diagnosis: Encounter for screening mammogram for malignant neoplasm of breast[ICD10: Z12.31] Diagnosis: Essential (primary) hypertension[ICD10: I10] Diagnosis: Hyperlipidemia, unspecified[ICD10: E78.5] Cherri Bo MD, [facility] CPT-4: 31043 09/12/2015 ([id number]) 88897 EST. PATIENT, LEVEL IV Diagnosis: Type 2 diabetes mellitus with hyperglycemia[ICD10: E11.65] Diagnosis: Essential (primary) hypertension[ICD10: I10] Diagnosis: Major depressive disorder, single episode, unspecified[ICD10: F32.9] Cherri Bo MD, [facility] CPT-4: 32841 08/14/2015 ([id number]) 39438 EST. PATIENT, LEVEL IV Diagnosis: Essential (primary) hypertension[ICD10: I10] Diagnosis: Type 2 diabetes mellitus with hyperglycemia[ICD10: E11.65] Diagnosis: Major depressive disorder, single episode, unspecified[ICD10: F32.9] Diagnosis: Dysuria[ICD10: R30.0] Cherri Bo MD, [facility] CPT-4: 15323 07/31/2015 ([id number]) 64232 EST. PATIENT, LEVEL IV Diagnosis: Type 2 diabetes mellitus with hyperglycemia[ICD10: E11.65] Diagnosis: Essential (primary) hypertension[ICD10: I10] Diagnosis: Major depressive disorder, single episode, unspecified[ICD10: F32.9] Cherri Bo MD, [facility] CPT-4: 46800 07/03/2015 ([id number]) 31608 EST. PATIENT, LEVEL IV Diagnosis: Type 2 diabetes mellitus with hyperglycemia[ICD10: E11.65] Diagnosis: Essential (primary) hypertension[ICD10: I10] Diagnosis: Hyperlipidemia, unspecified[ICD10: E78.5] Diagnosis: Hypothyroidism, unspecified[ICD10: E03.9] Cherri Bo MD, [facility] CPT-4: 71224 06/26/2015 ([id number]) OFFICE VISIT, NEW - LEVEL 4 Diagnosis: Diabetes mellitus[ICD9: 250.00] Diagnosis: Right shoulder pain[ICD9: 719.41] Diagnosis: Sinus congestion[ICD9: 478.19] Diagnosis: Insomnia[ICD9: 780.52] Cathy Bo MD, [facility] CPT-4: 16503 12/12/2014 Plan of Care Planned Activity Notes [...] of control. 11/18/2016 Appointment: Cherri Batres WPtel: [address] [place], [place] [phone] [place] (30 min) Complex 11/18/2016 Patient Education: Patient Medication Summary Completed 11/18/2016 [facility] [phone] [phone] [place] ([place] min) Complex 06/01/2016 [facility] [phone] [phone] ([facility] min) Complex 05/13/2016 Visit Plan: Hypertension [...] months based on previous levels of control. Rossi collado Mellitus - seenick Juarez I have recommended for the patient to [...] months based on previous levels of control. Rossi collado Mellitus - diana Juarez I have recommended for the patient to [...] antidepressant has been appropriately prescribed for this p atient. DID NOT TOLERATE LEXAPRO-START CYMBALTA 30MG DAILY [...] as well as the risks associated with NO T treating the depression. I believe the pt [...] 12/12/2014 Care Plan: Referral Order SNOMED-CT : [id number] Ordered 12/12/2014 Referral: Ronan Demarco Referral Completed [...]
--- OUTSIDE RECORDS SUMMARY | 2018-11-03 13:32 | XMS REPORT | Continuity of Care Document ---
Author Organization Unknown Address Unknown Allergies Active Description Code Type Severity Reaction Onset Reported/Identified Relationship to Patient Clinical Status Yes No Known Drug Allergies [id number] Drug Allergy Unknown N/A 02/16/2008 Medications There is no data. Problems Date Dx Coded Attending Type Code Diagnosis Diagnosed By 07/02/2011 Ot 401.9 HYPERTENSION NOS 07/02/2011 Ot 618.04 RECTOCELE 07/02/2011 Ot V58.69 OTH MED,LT,CURRENT USE 07/02/2011 Ot V76.51 SCREEN MAL NEOP- COLON 10/01/2011 Ot 401.9 HYPERTENSION NOS 10/01/2011 Ot 575.11 CHRONIC CHOLECYSTITIS 10/01/2011 Ot V58.69 OTH MED,LT,CURRENT USE 09/26/2012 ELIZABETH MAGANA, GIULIANO Plascencia Ot 172.6 MALIG MELANOMA ARM 09/26/2012 ELIZABETH MAGANA, GIULIANO Plascencia Ot 702.19 OTHER SEBORRHEIC KERATOSIS 05/07/2014 JARED GARCIA MD Ot 272.4 05/07/2014 JARED GARCIA MD Ot 401.9 05/07/2014 JARED GARCIA MD Ot 414.00 05/07/2014 JARED GARCIA MD Ot 786.50 05/07/2014 JARED GARCIA MD Ot 272.4 05/07/2014 JARED GARCIA MD Ot 396.3 05/07/2014 JARED GARCIA MD Ot 397.0 05/07/2014 JARED GARCIA MD Ot 401.9 05/07/2014 JARED GARCIA MD Ot 414.00 09/05/2014 Ot 272.4 09/05/2014 Ot 401.9 09/05/2014 Ot 414.01 09/05/2014 Ot 786.50 09/05/2014 Ot V76.12 09/05/2014 Ot 618.04 09/05/2014 Ot V72.63 09/05/2014 Ot V74.8 09/05/2014 Ot 789.04 09/05/2014 Ot 789.01 09/05/2014 Ot 575.8 09/05/2014 Ot V72.63 09/05/2014 Ot V74.8 09/05/2014 Ot V76.12 09/05/2014 ELIZABETH MAGANA, GIULIANO Plascencia Ot 709.9 09/05/2014 ELIZABETH MAGANA, GIULIANO Plascencia Ot V72.84 09/05/2014 ELIZABETH MAGANA, GIULIANO Plascencia Ot V74.8 09/05/2014 JANUARY TEIXEIRA PAUL Ot V76.12 09/05/2014 RADHA MAGANA, JARED iPnto Ot 272.4 09/05/2014 RADHA MAGANA, JARED Pinto Ot 396.3 09/05/2014 RADHA MAGANA, JARED Pinto Ot 397.0 09/05/2014 RADHA MAGANA, JARED Pinto Ot 401.9 09/05/2014 RADHA MAGANA, JARED Pinto Ot 414.00 09/05/2014 RADHA MAGANA, JARED Pinto Ot 272.4 09/05/2014 RADHA MAGANA, JARED Pinto Ot 401.9 09/05/2014 RADHA MAGANA, JARED Pinto Ot 414.00 09/05/2014 RADHA MAGANA, JARED Pinto Ot 786.50 10/05/2014 JACKIE MAGANA, SOLIS Shook Ot V76.12 10/18/2014 ROSEANN ASKEW Ot 793.80 10/23/2014 Ot 272.4 10/23/2014 Ot 401.9 10/23/2014 Ot 414.01 10/23/2014 Ot 786.50 10/23/2014 Ot V76.12 10/23/2014 Ot 618.04 10/23/2014 Ot V72.63 10/23/2014 Ot V74.8 10/23/2014 JANUARY TEIXEIRA PAUL Ot V76.12 10/23/2014 RADHA MAGANA, JARED Pinto Ot 272.4 10/23/2014 RADHA MAGANA, JARED Pinto Ot 396.3 10/23/2014 RADHA MAGANA, JARED Pinto Ot 397.0 10/23/2014 RADHA MAGANA, JARED Pinto Ot 401.9 10/23/2014 RADHA MAGANA, JARED Pinto Ot 414.00 10/23/2014 RADHA MAGANA, JARED Pinto Ot 272.4 10/23/2014 RADHA MAGANA, JARED Pinto Ot 401.9 10/23/2014 RADHA MAGANA, JARED Pinto Ot 414.00 10/23/2014 RADHA MAGANA, JARED Pinto Ot 786.50 10/23/2014 JACKIE MAGANA, SOLIS A Ot V76.12 10/23/2014 JAMILAH ROSEANN Shook SENIOR ANALYSIS SPECIALIST Ot 793.80 10/23/2014 ELIZABETH MAGANA, GIULIANO Plascencia Ot 709.9 10/23/2014 GIULIANO JOHNSON MD Ot V72.83 10/23/2014 GIULIANO JOHNSON MD Ot V74.8 10/23/2014 GIULIANO JOHNSON MD Ot 172.6 MALIG MELANOMA ARM 10/23/2014 GIULIANO JOHNSON MD Ot 272.4 HYPERLIPIDEMIA NEC/NOS 10/23/2014 GIULIANO JOHNSON MD Ot 277.7 DYSMETABOLIC SYNDROME X 10/23/2014 GIULIANO JOHNSON MD Ot 402.90 HYPERTENSIVE HRT DIS W/O HRT FAILURE NOS 10/23/2014 GIULIANO JOHNSON MD Ot 414.00 CORON ATHEROSCLER NOS TYPE VESSEL, NATIV 10/23/2014 GIULIANO JOHNSON MD Ot 427.31 ATRIAL FIBRILLATION 10/23/2014 GIULIANO JOHNSON MD Ot 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 W O CEREBRAL IN 10/23/2014 GIULIANO JOHNSON MD Ot V58.69 OTH MED,LT,CURRENT USE 11/15/2014 GIULIANO JOHNSON MD Ot 172.6 MALIG MELANOMA ARM 11/15/2014 GIULIANO OJHNSON MD Ot V58.69 OTH MED,LT,CURRENT USE 01/28/2015 SMITH HERRERA DO Ot 719.41 04/25/2015 Ot 789.04 04/25/2015 Ot 789.01 04/25/2015 Ot 575.8 04/25/2015 Ot V72.63 04/25/2015 Ot V74.8 04/25/2015 Ot V76.12 04/25/2015 GIULIANO JOHNSON MD Ot 709.9 04/25/2015 GIULIANO JOHNSON MD Ot V72.84 04/25/2015 GIULIANO JOHNSON MD Ot V74.8 05/15/2015 SLICK VELEZ, GABI Plascencia Ot M79.661 05/15/2015 SLICK VELEZ, GABI Plascnecia Ot R22.41 05/16/2015 Ot 789.04 05/16/2015 Ot 789.01 05/16/2015 Ot 575.8 05/16/2015 Ot V72.63 05/16/2015 Ot V74.8 05/16/2015 Ot V76.12 05/16/2015 ELIZABETH MAGANA, GIULIANO Plascencia Ot 709.9 05/16/2015 ELIZABETH MAGANA, GIULIANO Plascencia Ot V72.84 05/16/2015 ELIZABETH MAGANA, GIULIANO M Ot V74.8 05/16/2015 SLICK VELEZ, GABI Plascencia Ot M79.661 05/16/2015 SLICK VELEZ, GABI Plascencia Ot R22.41 09/24/2015 INGA THORPE SENIOR ANALYSIS SPECIALIST Ot Z12.31 ENCNTR SCREEN MAMMOGRAM FOR MALIGNANT NE 09/24/2015 INGA THORPE SENIOR ANALYSIS SPECIALIST Ot Z12.31 ENCNTR SCREEN MAMMOGRAM FOR MALIGNANT NE 09/26/2015 INGA THORPE SENIOR ANALYSIS SPECIALIST Ot Z12.31 ENCNTR SCREEN MAMMOGRAM FOR MALIGNANT NE 10/24/2015 INGA THORPE SENIOR ANALYSIS SPECIALIST Ot Z12.31 ENCNTR SCREEN MAMMOGRAM FOR MALIGNANT NE 11/13/2015 Ot 272.4 HYPERLIPIDEMIA NEC/NOS 11/13/2015 Ot 401.9 HYPERTENSION NOS 11/13/2015 Ot 414.01 CORONARY ATHEROSCLEROSIS OF [place] CORON 11/13/2015 Ot 786.50 CHEST PAIN NOS 11/13/2015 Ot V76.12 OTH SCREEN MAMMO- MALIGN NEOPLASM OF [place] 11/13/2015 Ot 618.04 RECTOCELE 11/13/2015 Ot V72.63 PRE-PROCEDURAL LABORATORY EXAMINATION 11/13/2015 Ot V74.8 SCREEN-BACTERIAL DIS NEC 11/13/2015 Ot 789.04 ABDOMINAL PAIN, LEFT LOWER QUADRANT 11/13/2015 Ot 789.01 ABDOMINAL PAIN, RIGHT UPPER QUADRANT 11/13/2015 Ot 575.8 DIS OF GALLBLADDER NEC 11/13/2015 Ot V72.63 PRE-PROCEDURAL LABORATORY EXAMINATION 11/13/2015 Ot V74.8 SCREEN-BACTERIAL DIS NEC 11/13/2015 Ot V76.12 OTH SCREEN MAMMO- MALIGN NEOPLASM OF [place] 11/13/2015 ELIZABETH MAGANA, GIULIANO Plascencia Ot 709.9 SKIN DISORDER NOS 11/13/2015 ELIZABETH AMGANA, GIULIANO Plascencia Ot V72.84 EXAM PRE-OPERATIVE NOS 11/13/2015 ELIZABETH MAGANA, GIULIANO Plascencia Ot V74.8 SCREEN-BACTERIAL DIS NEC 11/13/2015 PAUL SIN DO Ot V76.12 OTH SCREEN MAMMO-MALIGN NEOPLASM OF [place] 11/13/2015 JARED GARCIA MD Ot 272.4 HYPERLIPIDEMIA NEC/NOS 11/13/2015 JARED GARCIA MD J Ot 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 11/13/2015 JARED GARCIA MD Ot 397.0 TRICUSPID VALVE DISEASE 11/13/2015 JARED GARCIA MD Ot 401.9 HYPERTENSION NOS 11/13/2015 JARED GARCIA MD Ot 414.00 CORON ATHEROSCLER NOS TYPE VESSEL, NATIV 11/13/2015 JARED GARCIA MD Ot 272.4 HYPERLIPIDEMIA NEC/NOS 11/13/2015 JARED GARCIA MD Ot 401.9 HYPERTENSION NOS 11/13/2015 JARED GARCIA MD Ot 414.00 CORON ATHEROSCLER NOS TYPE VESSEL, NATIV 11/13/2015 JARED GARCIA MD Ot 786.50 CHEST PAIN NOS 11/13/2015 JACKIE MAGANA, SOLIS Shook Ot V76.12 OTH SCREEN MAMMO-MALIGN NEOPLASM OF [place] 11/13/2015 ROSEANN ASKEW SENIOR ANALYSIS SPECIALIST Ot 793.80 UNSPEC ABNORMAL MAMMOGRAM 11/13/2015 ELIZABETH MAGANA, GIULIANO Plascencia Ot 709.9 SKIN DISORDER NOS 11/13/2015 ELIZABETH MAGANA, GIULIANO Plascencia Ot V72.83 EXAM PRE-OPERATIVE NEC 11/13/2015 ELIZABETH MAGANA, GIULIANO Plascencia Ot V74.8 SCREEN-BACTERIAL DIS NEC 11/13/2015 ORALIA BARBOSA MD Ot 172.6 MALIG MELANOMA ARM 11/13/2015 ORALIA BARBOSA MD Ot V72.84 EXAM PRE-OPERATIVE NOS 11/13/2015 SMITH HERRERA DO Ot 719.41 JOINT PAIN-SHLDER 11/13/2015 GABI BARNES Ot M79.661 PAIN IN RIGHT LOWER LEG 11/13/2015 GABI BARNES Ot R22.41 LOCALIZED SWELLING, MASS AND LUMP, RIGHT 11/13/2015 SMITH HERRERA DO F Ot M54.16 RADICULOPATHY, LUMBAR REGION 11/13/2015 INGA THORPE Ot Z12.31 ENCNTR SCREEN MAMMOGRAM FOR MALIGNANT NE 11/13/2015 CELE RAM Ot I25.10 ATHSCL HEART DISEASE OF [place] CORONARY 11/13/2015 CELE RAM Ot I25.10 ATHSCL HEART DISEASE OF [place] CORONARY 11/13/2015 CELE RAM Ot I25.10 ATHSCL HEART DISEASE OF [place] CORONARY 11/14/2015 CELE RAM Ot E11.9 TYPE 2 DIABETES MELLITUS WITHOUT COMPLIC 11/14/2015 CELE RAM Ot I10 ESSENTIAL (PRIMARY) HYPERTENSION 11/14/2015 CELE RAM Ot I25.10 ATHSCL HEART DISEASE OF [place] CORONARY 11/14/2015 CELE RAM Ot 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 11/19/2015 CELE RAM Ot E11.9 TYPE 2 DIABETES MELLITUS WITHOUT COMPLIC 11/19/2015 CELE RAM Ot I10 ESSENTIAL (PRIMARY) HYPERTENSION 11/19/2015 CELE RAM Ot I25.10 ATHSCL HEART DISEASE OF [place] CORONARY 11/19/2015 CELE RAM Ot 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 12/18/2015 CELE RAM Ot E11.9 TYPE 2 DIABETES MELLITUS WITHOUT COMPLIC 12/18/2015 CELE RAM Ot I10 ESSENTIAL (PRIMARY) HYPERTENSION 12/18/2015 CELE RAM Ot I25.10 ATHSCL HEART DISEASE OF [place] CORONARY 12/18/2015 CELE RAM Ot 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 12/26/2015 Ot V76.12 OTH SCREEN MAMMO- MALIGN NEOPLASM OF [place] 12/26/2015 Ot 618.04 RECTOCELE 12/26/2015 Ot V72.63 PRE-PROCEDURAL LABORATORY EXAMINATION 12/26/2015 Ot V74.8 SCREEN-BACTERIAL DIS NEC 12/26/2015 Ot 789.04 ABDOMINAL PAIN, LEFT LOWER QUADRANT 12/26/2015 Ot 789.01 ABDOMINAL PAIN, RIGHT UPPER QUADRANT 12/26/2015 Ot 575.8 DIS OF GALLBLADDER NEC 12/26/2015 Ot V72.63 PRE-PROCEDURAL LABORATORY EXAMINATION 12/26/2015 Ot V74.8 SCREEN-BACTERIAL DIS NEC 12/26/2015 Ot V76.12 OTH SCREEN MAMMO- MALIGN NEOPLASM OF [place] 12/26/2015 ELIZABETH MAGANA, GIULIANO Plascencia Ot 709.9 SKIN DISORDER NOS 12/26/2015 ELIZABETH MAGANA, GIULIANO Plascencia Ot V72.84 EXAM PRE-OPERATIVE NOS 12/26/2015 ELIZABETH MAGANA, GIULIANO Plascencia Ot V74.8 SCREEN-BACTERIAL DIS NEC 12/26/2015 SINIFEANYI SIMONS DOI Ot V76.12 OTH SCREEN MAMMO-MALIGN NEOPLASM OF [place] 12/26/2015 RADHA MAGANA, JARED Pinto Ot 272.4 HYPERLIPIDEMIA NEC/NOS 12/26/2015 RADHA MAGANA, JARED Pinto Ot 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 12/26/2015 RADHA MAGANA, JARED Pinto Ot 397.0 TRICUSPID VALVE DISEASE 12/26/2015 RADHA MAGANA, JARED Pinto Ot 401.9 HYPERTENSION NOS 12/26/2015 RADHA MAGANA, JARED Pinto Ot 414.00 CORON ATHEROSCLER NOS TYPE VESSEL, NATIV 12/26/2015 RADHA MAGANA, JARED Pinto Ot 272.4 HYPERLIPIDEMIA NEC/NOS 12/26/2015 RADHA MAGANA, JARED Pinto Ot 401.9 HYPERTENSION NOS 12/26/2015 RADHA MAGANA, JARED Pinto Ot 414.00 CORON ATHEROSCLER NOS TYPE VESSEL, NATIV 12/26/2015 RADHA MAGANA, JARED Pinto Ot 786.50 CHEST PAIN NOS 12/26/2015 JACKIE MAGANA, SOLIS Shook Ot V76.12 OTH SCREEN MAMMO-MALIGN NEOPLASM OF [place] 12/26/2015 ROSEANN ASKEW Ot 793.80 UNSPEC ABNORMAL MAMMOGRAM 12/26/2015 ELIZABETH MAGANA, GIULIANO Plascencia Ot 709.9 SKIN DISORDER NOS 12/26/2015 ELIZABETH MAGANA, GIULIANO Plascencia Ot V72.83 EXAM PRE-OPERATIVE NEC 12/26/2015 ELIZABETH MAGANA, GIULIANO Plascencia Ot V74.8 SCREEN-BACTERIAL DIS NEC 12/26/2015 CHELSEY MAGANA, ORALIA Ot 172.6 MALIG MELANOMA ARM 12/26/2015 ORALIA BARBOSA MD Ot V72.84 EXAM PRE-OPERATIVE NOS 12/26/2015 SMITH HERRERA DO Ot 719.41 JOINT PAIN-SHLDER 12/26/2015 GABI BARNES Ot M79.661 PAIN IN RIGHT LOWER LEG 12/26/2015 GABI BARNES Ot R22.41 LOCALIZED SWELLING, MASS AND LUMP, RIGHT 12/26/2015 SMITH HERRERA DO Ot M54.16 RADICULOPATHY, LUMBAR REGION 12/26/2015 CELE RAM Ot E11.9 TYPE 2 DIABETES MELLITUS WITHOUT COMPLIC 12/26/2015 CELE RAM Ot I10 ESSENTIAL (PRIMARY) HYPERTENSION 12/26/2015 CELE RAM Ot I25.10 ATHSCL HEART DISEASE OF [place] CORONARY 12/26/2015 CELE RAM Ot 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 12/26/2015 INGA THORPE Ot Z12.31 ENCNTR SCREEN MAMMOGRAM FOR MALIGNANT NE 12/26/2015 DENISE GAY DO Ot M54.5 LOW BACK PAIN 01/02/2016 DENISE GAY DO Ot M54.5 LOW BACK PAIN 04/27/2016 Ot 789.04 ABDOMINAL PAIN, LEFT LOWER QUADRANT 04/27/2016 Ot 789.01 ABDOMINAL PAIN, RIGHT UPPER QUADRANT 04/27/2016 Ot 575.8 DIS OF GALLBLADDER NEC 04/27/2016 Ot V72.63 PRE-PROCEDURAL LABORATORY EXAMINATION 04/27/2016 Ot V74.8 SCREEN-BACTERIAL DIS NEC 04/27/2016 Ot V76.12 OTH SCREEN MAMMO- MALIGN NEOPLASM OF [place] 04/27/2016 ELIZABETH MAGANA, GIULIANO Plascencia Ot 709.9 SKIN DISORDER NOS 04/27/2016 GIULIANO JOHNSON MD Ot V72.84 EXAM PRE-OPERATIVE NOS 04/27/2016 GIULIANO JOHNSON MD Ot V74.8 SCREEN-BACTERIAL DIS NEC 04/27/2016 GABI BARNES Ot M79.661 PAIN IN RIGHT LOWER LEG 04/27/2016 GABI BARNES Ot R22.41 LOCALIZED SWELLING, MASS AND LUMP, RIGHT 04/27/2016 SMITH HERRERA DO Ot M54.16 RADICULOPATHY, LUMBAR REGION 04/27/2016 INGA THORPE Ot Z12.31 ENCNTR SCREEN MAMMOGRAM FOR MALIGNANT NE 05/12/2016 Ot 789.04 ABDOMINAL PAIN, LEFT LOWER QUADRANT 05/12/2016 Ot 789.01 ABDOMINAL PAIN, RIGHT UPPER QUADRANT 05/12/2016 Ot 575.8 DIS OF GALLBLADDER NEC 05/12/2016 Ot V72.63 PRE-PROCEDURAL LABORATORY EXAMINATION 05/12/2016 Ot V74.8 SCREEN-BACTERIAL DIS NEC 05/12/2016 Ot V76.12 OTH SCREEN MAMMO- MALIGN NEOPLASM OF [place] 05/12/2016 ELIZABETH MAGANA, GIULIANO Plascencia Ot 709.9 SKIN DISORDER NOS 05/12/2016 ELIZABETH MAGANA, GIULIANO Plascencia Ot V72.84 EXAM PRE-OPERATIVE NOS 05/12/2016 ELIZABETH MAGANA, GIULIANO Plascencia Ot V74.8 SCREEN-BACTERIAL DIS NEC 05/12/2016 GABI BARNES Ot M79.661 PAIN IN RIGHT LOWER LEG 05/12/2016 GABI BARNES Ot R22.41 LOCALIZED SWELLING, MASS AND LUMP, RIGHT 05/12/2016 SMITH HERRERA DO Ot M54.16 RADICULOPATHY, LUMBAR REGION 05/12/2016 INGA THORPE Ot Z12.31 ENCNTR SCREEN MAMMOGRAM FOR MALIGNANT NE 11/26/2016 CELE RAM Ot E11.9 TYPE 2 DIABETES MELLITUS WITHOUT COMPLIC 11/26/2016 CELE RAM Ot I10 ESSENTIAL (PRIMARY) HYPERTENSION 11/26/2016 CELE RAM Ot I25.10 ATHSCL HEART DISEASE OF [place] CORONARY 11/26/2016 CELE RAM Ot 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 11/26/2016 DENISE GAY DO Ot M54.5 LOW BACK PAIN 11/26/2016 INGA THORPE Ot Z12.31 ENCNTR SCREEN MAMMOGRAM FOR MALIGNANT NE 11/26/2016 INGA THORPE Ot Z12.31 ENCNTR SCREEN MAMMOGRAM FOR MALIGNANT NE 12/01/2016 Ot 618.04 RECTOCELE 12/01/2016 Ot V72.63 PRE-PROCEDURAL LABORATORY EXAMINATION 12/01/2016 Ot V74.8 SCREEN-BACTERIAL DIS NEC 12/01/2016 Ot 789.04 ABDOMINAL PAIN, LEFT LOWER QUADRANT 12/01/2016 Ot 789.01 ABDOMINAL PAIN, RIGHT UPPER QUADRANT 12/01/2016 Ot 575.8 DIS OF GALLBLADDER NEC 12/01/2016 Ot V72.63 PRE-PROCEDURAL LABORATORY EXAMINATION 12/01/2016 Ot V74.8 SCREEN-BACTERIAL DIS NEC 12/01/2016 Ot V76.12 OTH SCREEN MAMMO- MALIGN NEOPLASM OF [place] 12/01/2016 ELIZABETH MAGANA, GIULIANO Plascencia Ot 709.9 SKIN DISORDER NOS 12/01/2016 ELIZABETH MAGANA, GIULIANO Plascencia Ot V72.84 EXAM PRE-OPERATIVE NOS 12/01/2016 GIULIANO JOHNSON MD Ot V74.8 SCREEN-BACTERIAL DIS NEC 12/01/2016 PAUL SIN DO Ot V76.12 OTH SCREEN MAMMO-MALIGN NEOPLASM OF [place] 12/01/2016 JARED GARCIA MD Ot 272.4 HYPERLIPIDEMIA NEC/NOS 12/01/2016 RADHA MAGANA, JARED Pinto Ot 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 12/01/2016 RADHA MAGANA, JARED Pinto Ot 397.0 TRICUSPID VALVE DISEASE 12/01/2016 JARED GARCIA MD Ot 401.9 HYPERTENSION NOS 12/01/2016 JARED GARCIA MD Ot 414.00 CORON ATHEROSCLER NOS TYPE VESSEL, NATIV 12/01/2016 JARED GARCIA MD Ot 272.4 HYPERLIPIDEMIA NEC/NOS 12/01/2016 JARED GARCIA MD Ot 401.9 HYPERTENSION NOS 12/01/2016 JARED GARCIA MD Ot 414.00 CORON ATHEROSCLER NOS TYPE VESSEL, NATIV 12/01/2016 JARED GARCIA MD Ot 786.50 CHEST PAIN NOS 12/01/2016 SOLIS MEJIA MD Ot V76.12 OTH SCREEN MAMMO-MALIGN NEOPLASM OF [place] 12/01/2016 ROSEANN ASKEW SENIOR ANALYSIS SPECIALIST Ot 793.80 UNSPEC ABNORMAL MAMMOGRAM 12/01/2016 GIULIANO JOHNSON MD Ot 709.9 SKIN DISORDER NOS 12/01/2016 GIULIANO JOHNSON MD Ot V72.83 EXAM PRE-OPERATIVE NEC 12/01/2016 ELIZABETH MAGANA, GIULIANO Plascencia Ot V74.8 SCREEN-BACTERIAL DIS NEC 12/01/2016 CHELSEY MAGANA, ORALIA Ot 172.6 MALIG MELANOMA ARM 12/01/2016 ORALIA BARBOSA MD Ot V72.84 EXAM PRE-OPERATIVE NOS 12/01/2016 SHARON TEIXEIRA, SMITH Wilson Ot 719.41 JOINT PAIN-SHLDER 12/01/2016 GABI BARNES Ot M79.661 PAIN IN RIGHT LOWER LEG 12/01/2016 GABI BARNES Ot R22.41 LOCALIZED SWELLING, MASS AND LUMP, RIGHT 12/01/2016 SMITH HERRERA DO Ot M54.16 RADICULOPATHY, LUMBAR REGION 12/01/2016 CELE RAM Ot E11.9 TYPE 2 DIABETES MELLITUS WITHOUT COMPLIC 12/01/2016 CELE RAM Ot I10 ESSENTIAL (PRIMARY) HYPERTENSION 12/01/2016 CELE RAM Ot I25.10 ATHSCL HEART DISEASE OF [place] CORONARY 12/01/2016 CELE RAM Ot 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 12/01/2016 INGA THORPE SENIOR ANALYSIS SPECIALIST Ot Z12.31 ENCNTR SCREEN MAMMOGRAM FOR MALIGNANT NE 12/01/2016 DENISE GAY DO Ot M54.5 LOW BACK PAIN 12/01/2016 INGA THORPE SENIOR ANALYSIS SPECIALIST Ot Z12.31 ENCNTR SCREEN MAMMOGRAM FOR MALIGNANT NE 12/02/2016 INGA THORPE SENIOR ANALYSIS SPECIALIST Ot Z12.31 ENCNTR SCREEN MAMMOGRAM FOR MALIGNANT NE 12/03/2016 INGA THORPE SENIOR ANALYSIS SPECIALIST Ot Z12.31 ENCNTR SCREEN MAMMOGRAM FOR MALIGNANT NE 12/31/2016 INGA THORPEP Ot Z12.31 ENCNTR SCREEN MAMMOGRAM FOR MALIGNANT NE 06/09/2017 Ot V76.12 OTH SCREEN MAMMO- MALIGN NEOPLASM OF [place] 06/09/2017 ELIZABETH MAGANA, GIULIANO Plascencia Ot 709.9 SKIN DISORDER NOS 06/09/2017 ELIZABETH MAGANA, GIULIANO Plascencia Ot V72.84 EXAM PRE-OPERATIVE NOS 06/09/2017 ELIZABETH MAGANA, GIULIANO Plascencia Ot V74.8 SCREEN-BACTERIAL DIS NEC 06/09/2017 SIN PAUL Ot V76.12 OTH SCREEN MAMMO-MALIGN NEOPLASM OF [place] 06/09/2017 JARED GARCIA MD Ot 272.4 HYPERLIPIDEMIA NEC/NOS 06/09/2017 JARED GARCIA MD Ot 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 06/09/2017 JARED GARCIA MD Ot 397.0 TRICUSPID VALVE DISEASE 06/09/2017 JARED GARCIA MD Ot 401.9 HYPERTENSION NOS 06/09/2017 JARED GARCIA MD Ot 414.00 CORON ATHEROSCLER NOS TYPE VESSEL, NATIV 06/09/2017 JARED GARCIA MD Ot 272.4 HYPERLIPIDEMIA NEC/NOS 06/09/2017 JARED GARCIA MD Ot 401.9 HYPERTENSION NOS 06/09/2017 JARED GARCIA MD Ot 414.00 CORON ATHEROSCLER NOS TYPE VESSEL, NATIV 06/09/2017 JARED GARCIA MD Ot 786.50 CHEST PAIN NOS 06/09/2017 JACKIE MAGANA, SOLIS Shook Ot V76.12 OTH SCREEN MAMMO-MALIGN NEOPLASM OF [place] 06/09/2017 ROSEANN ASKEW SENIOR ANALYSIS SPECIALIST Ot 793.80 UNSPEC ABNORMAL MAMMOGRAM 06/09/2017 ELIZABETH MAGANA, GIULIANO Plascencia Ot 709.9 SKIN DISORDER NOS 06/09/2017 ELIZABETH MAGANA, GIULIANO Plascencia Ot V72.83 EXAM PRE-OPERATIVE NEC 06/09/2017 ELIZABETH MAGANA, GIULIANO Plascencia Ot V74.8 SCREEN-BACTERIAL DIS NEC 06/09/2017 ORALIA BARBOSA MD Ot 172.6 MALIG MELANOMA ARM 06/09/2017 ORALIA BARBOSA MD Ot V72.84 EXAM PRE-OPERATIVE NOS 06/09/2017 SMITH HERRERA DO Ot 719.41 JOINT PAIN-SHLDER 06/09/2017 GABI BARNES Ot M79.661 PAIN IN RIGHT LOWER LEG 06/09/2017 GABI BARNES Ot R22.41 LOCALIZED SWELLING, MASS AND LUMP, RIGHT 06/09/2017 SHARON TEIXEIRA SMITH F Ot M54.16 RADICULOPATHY, LUMBAR REGION 06/09/2017 LILIANE VELEZ, CELE Tejeda Ot E11.9 TYPE 2 DIABETES MELLITUS WITHOUT COMPLIC 06/09/2017 CELE RAM Ot I10 ESSENTIAL (PRIMARY) HYPERTENSION 06/09/2017 CELE RAM Ot I25.10 ATHSCL HEART DISEASE OF [place] CORONARY 06/09/2017 CELE RAM Ot 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 06/09/2017 INGA THORPE Ot Z12.31 ENCNTR SCREEN MAMMOGRAM FOR MALIGNANT NE 06/09/2017 DEIDRA TEIXEIRADENISE Ot M54.5 LOW BACK PAIN 06/09/2017 INGA THORPE Ot Z12.31 ENCNTR SCREEN MAMMOGRAM FOR MALIGNANT NE 06/13/2017 MARIJA KRAFT DO Ot M43.16 SPONDYLOLISTHESIS, LUMBAR REGION 06/13/2017 ABENA DO MARIJA C Ot M46.96 UNSPECIFIED INFLAMMATORY SPONDYLOPATHY, 06/13/2017 OLEG KRAFT DOSHUA C Ot M47.816 SPONDYLOSIS W/O MYELOPATHY OR RADICULOPA 06/13/2017 RUIY DO MARIJA C Ot M48.07 SPINAL STENOSIS, LUMBOSACRAL REGION 06/13/2017 ABENA DO MARIJA C Ot M51.26 OTHER INTERVERTEBRAL DISC DISPLACEMENT, 06/13/2017 MARIJA KRAFT DO C Ot M71.38 OTHER BURSAL CYST, OTHER SITE 06/13/2017 DANE KRAFT DOUA C Ot Z91.81 HISTORY OF FALLING 06/13/2017 MARIJA KRAFT DO Ot Z98.1 ARTHRODESIS STATUS 06/17/2017 ABENA TEIXEIRA MARIJA C Ot M43.16 SPONDYLOLISTHESIS, LUMBAR REGION 06/17/2017 SWESOL DO MARIJA C Ot M46.96 UNSPECIFIED INFLAMMATORY SPONDYLOPATHY, 06/17/2017 RUIY DO MARIJA C Ot M47.816 SPONDYLOSIS W/O MYELOPATHY OR RADICULOPA 06/17/2017 ABENA DO MARIJA C Ot M48.07 SPINAL STENOSIS, LUMBOSACRAL REGION 06/17/2017 SWESOL DO MARIJA C Ot M51.26 OTHER INTERVERTEBRAL DISC DISPLACEMENT, 06/17/2017 SWEANEY DO, MARIJA C Ot M71.38 OTHER BURSAL CYST, OTHER SITE 06/17/2017 SWEANEY DO, MARIJA C Ot Z91.81 HISTORY OF FALLING 06/17/2017 SWEANEY DO, MARIJA C Ot Z98.1 ARTHRODESIS STATUS 06/17/2017 SWEANEY DO, MARIJA C Ot M43.16 SPONDYLOLISTHESIS, LUMBAR REGION 06/17/2017 SWEANEY DO, MARIJA C Ot M46.96 UNSPECIFIED INFLAMMATORY SPONDYLOPATHY, 06/17/2017 SWEANEY DO, MARIJA C Ot M47.816 SPONDYLOSIS W/O MYELOPATHY OR RADICULOPA 06/17/2017 SWEANEY DO, MARIJA C Ot M48.07 SPINAL STENOSIS, LUMBOSACRAL REGION 06/17/2017 SWEANEY DO, MARIJA C Ot M51.26 OTHER INTERVERTEBRAL DISC DISPLACEMENT, 06/17/2017 SWEANEY DO, MARIJA C Ot M71.38 OTHER BURSAL CYST, OTHER SITE 06/17/2017 SWEANEY DO, MARIJA C Ot Z91.81 HISTORY OF FALLING 06/17/2017 SWEANEY DO, MARIJA C Ot Z98.1 ARTHRODESIS STATUS 06/17/2017 SWEANEY DO, MARIJA C Ot M43.16 SPONDYLOLISTHESIS, LUMBAR REGION 06/17/2017 SWEANEY DO, MARIJA C Ot M46.96 UNSPECIFIED INFLAMMATORY SPONDYLOPATHY, 06/17/2017 SWEANEY DO, MARIJA C Ot M47.816 SPONDYLOSIS W/O MYELOPATHY OR RADICULOPA 06/17/2017 SWEANEY DO, MARIJA C Ot M48.07 SPINAL STENOSIS, LUMBOSACRAL REGION 06/17/2017 SWEANEY DO, MARIJA C Ot M51.26 OTHER INTERVERTEBRAL DISC DISPLACEMENT, 06/17/2017 SWEANEY DO, MARIJA C Ot M71.38 OTHER BURSAL CYST, OTHER SITE 06/17/2017 SWEANEY DO, MARIJA C Ot Z91.81 HISTORY OF FALLING 06/17/2017 SWEANEY DO, MARIJA C Ot Z98.1 ARTHRODESIS STATUS 06/17/2017 SWEANEY DO, MARIJA C Ot M43.16 SPONDYLOLISTHESIS, LUMBAR REGION 06/17/2017 SWEANEY DO, MARIJA C Ot M46.96 UNSPECIFIED INFLAMMATORY SPONDYLOPATHY, 06/17/2017 SWEANEY DO, MARIJA C Ot M47.816 SPONDYLOSIS W/O MYELOPATHY OR RADICULOPA 06/17/2017 SWEANEY DO, MARIJA C Ot M48.07 SPINAL STENOSIS, LUMBOSACRAL REGION 06/17/2017 SWEANEY DO, MARIJA C Ot M51.26 OTHER INTERVERTEBRAL DISC DISPLACEMENT, 06/17/2017 SWEANEY DO, MARIJA C Ot M71.38 OTHER BURSAL CYST, OTHER SITE 06/17/2017 SWEANEY DO, MARIJA C Ot Z91.81 HISTORY OF FALLING 06/17/2017 SWEANEY DO, MARIJA C Ot Z98.1 ARTHRODESIS STATUS 07/07/2017 SWEANEY DO, MARIJA C Ot M43.16 SPONDYLOLISTHESIS, LUMBAR REGION 07/07/2017 SWEANEY DO, MARIJA C Ot M46.96 UNSPECIFIED INFLAMMATORY SPONDYLOPATHY, 07/07/2017 SWEANEY DO, MARIJA C Ot M47.816 SPONDYLOSIS W/O MYELOPATHY OR RADICULOPA 07/07/2017 SWEANEY DO, MARIJA C Ot M48.07 SPINAL STENOSIS, LUMBOSACRAL REGION 07/07/2017 SWEANEY DO, MARIJA C Ot M51.26 OTHER INTERVERTEBRAL DISC DISPLACEMENT, 07/07/2017 SWEANEY DO, MARIJA C Ot M71.38 OTHER BURSAL CYST, OTHER SITE 07/07/2017 SWEANEY DO, MARIJA C Ot Z91.81 HISTORY OF FALLING 07/07/2017 SWEANEY DO, MARIJA C Ot Z98.1 ARTHRODESIS STATUS 11/25/2017 Ot V76.12 OTH SCREEN MAMMO- MALIGN NEOPLASM OF [place] 11/25/2017 ELIZABETH MAGANA, GIULIANO Plascencia Ot 709.9 SKIN DISORDER NOS 11/25/2017 ELIZABETH MAGANA, GIULIANO Plascencia Ot V72.84 EXAM PRE-OPERATIVE NOS 11/25/2017 ELIZABETH MAGANA, GIULIANO Plascencia Ot V74.8 SCREEN-BACTERIAL DIS NEC 11/25/2017 PAUL SIN DO Ot V76.12 OTH SCREEN MAMMO-MALIGN NEOPLASM OF [place] 11/25/2017 JARED GARCIA MD Ot 272.4 HYPERLIPIDEMIA NEC/NOS 11/25/2017 JARED GARCIA MD Ot 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 11/25/2017 JARED GARCIA MD Ot 397.0 TRICUSPID VALVE DISEASE 11/25/2017 JARED GARCIA MD Ot 401.9 HYPERTENSION NOS 11/25/2017 JARED GARCIA MD Ot 414.00 CORON ATHEROSCLER NOS TYPE VESSEL, NATIV 11/25/2017 JARED GARCIA MD Ot 272.4 HYPERLIPIDEMIA NEC/NOS 11/25/2017 JARED GARCIA MD Ot 401.9 HYPERTENSION NOS 11/25/2017 JARED GARCIA MD Ot 414.00 CORON ATHEROSCLER NOS TYPE VESSEL, NATIV 11/25/2017 JARED GARCIA MD Ot 786.50 CHEST PAIN NOS 11/25/2017 JACKIE MAGANA, SOLIS Shook Ot V76.12 OTH SCREEN MAMMO-MALIGN NEOPLASM OF [place] 11/25/2017 ROSEANN ASKEW Ot 793.80 UNSPEC ABNORMAL MAMMOGRAM 11/25/2017 ELIZABETH MAGANA, GIULIANO Plascencia Ot 709.9 SKIN DISORDER NOS 11/25/2017 ELIZABETH MAGANA, GIULIANO Plascencia Ot V72.83 EXAM PRE-OPERATIVE NEC 11/25/2017 ELIZABETH MAGANA, GIULIANO Plascencia Ot V74.8 SCREEN-BACTERIAL DIS NEC 11/25/2017 CHELSEY MAGANA, ORALIA Ot 172.6 MALIG MELANOMA ARM 11/25/2017 CHELSEY MAGANA, ORALIA Ot V72.84 EXAM PRE-OPERATIVE NOS 11/25/2017 SMITH HERRERA DO Ot 719.41 JOINT PAIN-SHLDER 11/25/2017 GABI BARNES Ot M79.661 PAIN IN RIGHT LOWER LEG 11/25/2017 GABI BARNES Ot R22.41 LOCALIZED SWELLING, MASS AND LUMP, RIGHT 11/25/2017 SMITH HERRERA DO Ot M54.16 RADICULOPATHY, LUMBAR REGION 11/25/2017 CELE RAM Ot E11.9 TYPE 2 DIABETES MELLITUS WITHOUT COMPLIC 11/25/2017 CELE RAM Ot I10 ESSENTIAL (PRIMARY) HYPERTENSION 11/25/2017 CELE RAM Ot I25.10 ATHSCL HEART DISEASE OF [place] CORONARY 11/25/2017 CELE RAM Ot 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 11/25/2017 INGA THORPE Ot Z12.31 ENCNTR SCREEN MAMMOGRAM FOR MALIGNANT NE 11/25/2017 DENISE GAY DO Temo Ot M54.5 LOW BACK PAIN 11/25/2017 INGA THORPE Ot Z12.31 ENCNTR SCREEN MAMMOGRAM FOR MALIGNANT NE 11/25/2017 SWESOL DO MARIJA C Ot M43.16 SPONDYLOLISTHESIS, LUMBAR REGION 11/25/2017 SWEANEY DO, MARIJA C Ot M46.96 UNSPECIFIED INFLAMMATORY SPONDYLOPATHY, 11/25/2017 SWEANEY DO MARIJA C Ot M47.816 SPONDYLOSIS W/O MYELOPATHY OR RADICULOPA 11/25/2017 SWEANEY DO, MARIJA C Ot M48.07 SPINAL STENOSIS, LUMBOSACRAL REGION 11/25/2017 SWESOL DO MARIJA C Ot M51.26 OTHER INTERVERTEBRAL DISC DISPLACEMENT, 11/25/2017 SWESANTOSY DOOLEGMARIJA C Ot M71.38 OTHER BURSAL CYST, OTHER SITE 11/25/2017 OLEG KRAFT DOSHUA C Ot Z91.81 HISTORY OF FALLING 11/25/2017 OLEG KRAFT DOSHUA C Ot Z98.1 ARTHRODESIS STATUS 11/25/2017 ALLYSON METCALF MD Ot Z12.31 ENCNTR SCREEN MAMMOGRAM FOR MALIGNANT NE 11/28/2017 ALLYSON METCALF MD Ot Z12.31 ENCNTR SCREEN MAMMOGRAM FOR MALIGNANT NE 12/01/2017 ALLYSON METCALF MD Ot Z12.31 ENCNTR SCREEN MAMMOGRAM FOR MALIGNANT NE Procedures There is no data. Results There is no data. Encounters ACCT No. Visit Date/Time Discharge Status Pt. Type Provider Facility Loc./Unit Complaint [id number] 11/25/2017 08:54:00 11/25/2017 23:59:59 CLS Outpatient ALLYSON METCALF MD [facility] RAD SCREENING [id number] 06/11/2017 09:22:00 06/11/2017 23:59:59 CLS Outpatient MARIJA KRAFT DO [facility] RAD M54.5 LOW BACK PAIN [id number] 12/01/2016 09:31:00 12/01/2016 23:59:59 CLS Outpatient INGA THORPE [facility] RAD SCREENING Z12.31 [id number] 12/11/2015 11:49:00 12/11/2015 23:59:59 CLS Outpatient DEIDRA TEIXEIRA DENISE Plascencia [facility] RAD BACK PAIN [id number] 11/13/2015 11:44:00 11/13/2015 23:59:59 CLS Outpatient CELE RAM [facility] CARD CAD,LOCO,HHD,HTN [id number] 09/23/2015 13:55:00 09/23/2015 23:59:59 CLS Outpatient INGA THORPE [facility] RAD SCREENING [id number] 05/16/2015 10:03:00 05/16/2015 23:59:59 CLS Outpatient SMITH HERRERA DO [facility] RAD LUMBAR RADICULOPATHY, LBP [id number] 04/25/2015 12:30:00 04/25/2015 23:59:59 CLS Outpatient GABI BARNES [facility] RAD RIGHT LEG SWELLING,CALF PAIN [id number] 01/08/2015 10:42:00 01/08/2015 23:59:59 CLS Outpatient SMITH HERRERA DO [facility] RAD PAIN [id number] 11/15/2014 10:13:00 11/15/2014 14:20:00 DIS Outpatient GIULIANO JOHNSON MD [facility] SDC MELANOMA [id number] 11/13/2014 06:07:00 11/13/2014 23:59:59 CLS Outpatient ORALIA BARBOSA MD [facility] PREOP MELANOMA [id number] 10/23/2014 07:50:00 10/23/2014 11:00:00 DIS Outpatient GIULIANO JOHNSON MD [facility] SDC RECURRENT LESION RIGHT UPPER ARM [id number] 10/17/2014 14:05:00 10/17/2014 23:59:59 CLS Outpatient GIULIANO JOHNSON MD [facility] PREOP RECURRENT SKIN LESION RIGHT UPPER ARM [id number] 09/20/2014 08:56:00 09/20/2014 23:59:59 CLS Outpatient JAMILAH ROSEANN Bouchra CONOR [facility] RAD ABNORMAL MAMMO [id number] 09/05/2014 10:55:00 09/05/2014 23:59:59 CLS Outpatient SOLIS MEJIA MD [facility] RAD SCREENING [id number] 02/25/2014 07:23:00 02/25/2014 23:59:59 CLS Outpatient JARED GARCIA MD [facility] CARD CAD,LOCO,CP [id number] 02/22/2014 07:38:00 02/22/2014 23:59:59 CLS Outpatient JARED GARCIA MD [facility] CARD CAD,LOCO,HTN,HLP [id number] 06/11/2013 13:05:00 06/11/2013 23:59:59 CLS Outpatient SINRONAK TEIXEIRA PAUL [facility] RAD SCREENING [id number] 09/26/2012 06:26:00 09/26/2012 12:00:00 DIS Outpatient GIULIANO JOHNSON MD [facility] SDC SKIN LESIONS [id number] 09/25/2012 08:51:00 09/25/2012 23:59:59 CLS Outpatient GIULIANO JOHNSON MD [facility] PREOP SKIN LESIONS [id number] 09/05/2014 10:54:00 Document Registration [id number] 09/05/2014 10:54:00 Document Registration [id number] 09/05/2014 10:54:00 Document Registration [id number] 09/05/2014 10:54:00 Document Registration [id number] 09/05/2014 10:53:00 Document Registration [id number] 10/01/2011 05:46:00 Document Registration [id number] 09/15/2011 09:16:00 Document Registration [id number] 08/24/2011 09:06:00 Document Registration [id number] 07/01/2011 06:02:00 Document Registration [id number] 06/23/2011 07:59:00 Document Registration [id number] 05/21/2011 09:15:00 Document Registration [email or web address] 01/08/2015 10:43:05 ACT Document Registration
[2018-11-03] MEDS ORDERED: LACTATED RINGERS 1,000 ML IV SCH (14:00)
[2018-11-03 15:04] LABS: BASOPHILS % (AUTO) 0 % (0-10); EOSINOPHILS # (AUTO) 0.1 10^3/uL (0.0-0.3); EOSINOPHILS % (AUTO) 2 % (0-10); HEMATOCRIT 32 % (35-52); HEMOGLOBIN 10.5 G/DL (11.5-16.0); LYMPHOCYTES # (AUTO) 1.4 X 10^3 (1.0-4.0); LYMPHOCYTES % (AUTO) 14 % (12-44); MEAN CORPUSCULAR HEMOGLOBIN 32 PG (25-34); MEAN CORPUSCULAR HGB CONC 33 G/DL (32-36); MEAN CORPUSCULAR VOLUME 99 FL (80-99); MEAN PLATELET VOLUME 9.6 FL (7.4-10.4); MONOCYTES % (AUTO) 10 % (0-12); NEUTROPHILS # (AUTO) 7.1 X 10^3 (1.8-7.8); NEUTROPHILS % (AUTO) 74 % (42-75); PLATELET COUNT 197 10^3/uL (130-400); RED CELL DISTRIBUTION WIDTH 14.9 % (10.0-14.5); WHITE BLOOD COUNT 9.6 10^3/uL (4.3-11.0)
--- NOTE | 2018-11-03 15:04 | ED Lower Extremity ---
General Chief Complaint: Lower Extremity Stated Complaint: BLOOD CLOT Nursing Triage Note: Fell 10 days ago due to left foot going numb. States that she has had sciatica paina nd has been seeing chiropractor for rt leg issues. 2 days ago left lower leg has become swollena nd painful- unable to walk on it. Was sent for US today. Also states that she feels dehydrated and has not been drinking very much. Nursing Sepsis Screen: No Definite Risk Source: patient Exam Limitations: no limitations History of Present Illness Date Seen by Provider: Nov 03, 2018 Time Seen by Provider: 15:03 Initial Comments To ER with reports of DVT. Patient has been seeing reexamined chiropractic for some right leg pain/sciatica. While she was there yesterday she noticed some swelling in left leg, Dr. Arreguin ordered a venous ultrasound left lower extremity which was done outpatient. This was positive for DVT. She was referred here to the emergency room as her primary care provider is out of the office today. She denies chest pain or shortness of breath. She denies any history of DVT or clotting disorders. She denies smoking. She denies exogenous estrogen use. She denies any known history of cancer. She did fall 2 weeks ago injuring the left leg landing on it. She denies any pain in the left leg but does have some c hronic low back pain Onset: this evening Severity: moderate Pain/Injury Location: left leg Method of Injury: fell Allergies and Home Medications Allergies Coded Allergies: No Known Drug Allergies (Verified , 11/03/18) Home Medications Alprazolam 0.25 Mg Tablet, 0.25 MG PO TID PRN for ANXIETY, (Reported) PRN ANXIETY Aspirin 81 Mg Tabec, 81 MG PO DAILY, (Reported) Carvedilol Phosphate 20 Mg Cpmp.24hr, 20 MG PO HS, (Reported) Cholecalciferol 1,000 Unit Tablet, 2,000 UNIT PO DAILY, (Reported) TAKE 2 (1,000MG) TABS Estradiol 0.1 Mg Patch, 0.1 MG TD WEEKLY ON TUESDAY, (Reported) Fenofibrate,Micronized 145 Mg Tablet, 145 MG PO HS, (Reported) Insulin Lispro 100 Unit/1 Ml Cartridge, 1-20 UNIT SQ AC, (Reported) SLIDING SCALE INSULIN Levothyroxine Sodium 50 Mcg Tablet, 50 MCG PO DAILY, (Reported) Lisinopril 40 Mg Tablet, 40 MG PO HS, (Reported) Magnesium Oxide 250 Mg Tablet, 250 MG PO DAILY, (Reported) [place]-3/Dha/Epa/Fish Oil 1 Each Capsule.dr, 2,000 MG PO HS, (Reported) TAKES 2 CAPS OF 1000MG Rosuvastatin Calcium 20 Mg Tablet, 20 MG PO HS, (Reported) Telmisartan 80 Mg Tablet, 80 MG PO HS, (Reported) Tramadol Hcl 50 Mg Tablet, 50 MG PO BID PRN for PAIN Prescribed by: GUIDO MCCORMACK on 11/15/14 1400 Patient Home Medication List Home Medication List Reviewed: Yes Review of Systems Constitutional: see HPI; No chills, No fever EENTM: see HPI Respiratory: no symptoms reported Cardiovascular: no symptoms reported Genitourinary: no symptoms reported Musculoskeletal: see HPI Skin: no symptoms reported Psychiatric/Neurological: No Symptoms Reported Past Inemlvs-Vnbksa-Pgkufk Hx Patient Social History Alcohol Use: Denies Use Recreational Drug Use: No Smoking Status: Never a Smoker 2nd Hand Smoke Exposure: No Recent Foreign Travel: No Contact w/Someone Who Travel: No Recent Infectious Disease Expo: No Recent Hopitalizations: No Immunizations Up To Date Date of Pneumonia Vaccine: Feb 06, 2014 Date of Influenza Vaccine: Feb 06, 2011 Past Medical History Eye Surgery, Gallbladder, Hysterectomy, Orthopedic Respiratory: No Cardiac: No Neurological: No (numbness to left leg) Reproductive Disorders: No Sexually Transmitted Disease: No Gastrointestinal: No Musculoskeletal: Yes Arthritis, Chronic Back Pain Endocrine: Yes Diabetes, Insulin dep, Hypothyroidsim Cancer: Yes Melanoma Psychosocial: Yes Depression Integumentary: Yes (LESION, RIGHT MID UPPER ARM) Blood Disorders: No Physical Exam Vital Signs Vital Signs - First Documented 11/03/18 13:37 Temp 97.8 Pulse 84 Resp 16 B/P (MAP) 84/60 (68) Pulse Ox 99 Capillary Refill : Less Than 3 Seconds Height, Weight, BMI Height: 5'2.00" Weight: 106lbs. 0oz. 48.657824hb; 18.97 BMI Method:Stated General Appearance: WD/WN, no apparent distress HEENT: PERRL/EOMI, normal ENT inspection Hips: bilateral hip non-tender, bilateral hip normal inspection, bilateral hip normal range of motion Legs: left leg swelling, left leg other (the left lower extremity is significantly more swollen than the right without erythema. Dorsalis pedis pulses symmetric +1 in strength bilateral lower extremities) Knees: bilateral knee non-tender, bilateral knee normal inspection Ankles: bilateral ankle non-tender, bilateral ankle normal inspection Feet: bilateral foot non-tender, bilateral foot normal inspection Neurologic/Psychiatric: alert, normal mood/affect, oriented x 3 Skin: normal color, warm/dry Progress/Results/Core Measures Results/Orders Lab Results Laboratory Tests Test 11/03/18 14:53 11/03/18 16:50 Range/Units White Blood Count 9.6 4.3-11.0 10^3/uL Red Blood Count 3.25 L 4.35-5.85 10^6/uL Hemoglobin 10.5 L 11.5-16.0 G/DL Hematocrit 32 L 35-52 % Mean Corpuscular Volume 99 80-99 FL Mean Corpuscular Hemoglobin 32 25-34 PG Mean Corpuscular Hemoglobin Concent 33 32-36 G/DL Red Cell Distribution Width 14.9 H 10.0-14.5 % Platelet Count 197 130-400 10^3/uL Mean Platelet Volume 9.6 7.4-10.4 FL Neutrophils (%) (Auto) 74 42-75 % Lymphocytes (%) (Auto) 14 12-44 % Monocytes (%) (Auto) 10 0-12 % Eosinophils (%) (Auto) 2 0-10 % Basophils (%) (Auto) 0 0-10 % Neutrophils # (Auto) 7.1 1.8-7.8 X 10^3 Lymphocytes # (Auto) 1.4 1.0-4.0 X 10^3 Monocytes # (Auto) 1.0 0.0-1.0 X 10^3 Eosinophils # (Auto) 0.1 0.0-0.3 10^3/uL Basophils # (Auto) 0.0 0.0-0.1 10^3/uL Sodium Level 137 135-145 MMOL/L Potassium Level 6.4 H 3.6-5.0 MMOL/L Chloride Level 109 H 98-107 MMOL/L Carbon Dioxide Level 15 L 21-32 MMOL/L Anion Gap 13 5-14 MMOL/L Blood Urea Nitrogen 89 H 7-18 MG/DL Creatinine 4.01 H 0.60-1.30 MG/DL Estimat Glomerular Filtration Rate 11 BUN/Creatinine Ratio 22 Glucose Level 171 H 70-105 MG/DL Calcium Level 11.6 H 8.5-10.1 MG/DL Corrected Calcium 11.4 H 8.5-10.1 MG/DL Total Bilirubin 0.2 0.1-1.0 MG/DL Aspartate Amino Transf (AST/SGOT) 9 5-34 U/L Alanine Aminotransferase (ALT/SGPT) 19 0-55 U/L Alkaline Phosphatase 35 L 40-136 U/L Total Protein 7.1 6.4-8.2 GM/DL Albumin 4.3 3.2-4.5 GM/DL Glucometer 97 70-110 MG/DL My Orders Orders - AVA LIRIANO SHIPPING/RECEIVING MANAGER Cbc With Automated Diff (11/03/18 13:28) Comprehensive Metabolic Panel (11/03/18 13:28) Lactated Ringers (Lr 1000 Ml Iv Solution (11/03/18 14:00) Ed Iv/Invasive Line Start (11/03/18 13:48) Rivaroxaban Tablet (Xarelto Tablet) (11/03/18 15:15) Ekg Tracing (11/03/18 15:32) D50w (Emergency) Syringe (Dextrose 50% 5 (11/03/18 15:45) Insulin (Regular) Human (Humulin R (Per (11/03/18 15:45) Ekg Tracing (11/03/18 16:47) Accucheck Stat ONCE (11/03/18 16:47) Medications Given in ED Current Medications Medications Dose Ordered Sig/Cassandra Route Start Time Stop Time Status Last Admin Dose Admin Dextrose 25 ml ONCE ONCE IV 11/03/18 15:45 11/03/18 15:46 DC 11/03/18 15:48 25 ML Rivaroxaban 15 mg ONCE ONCE PO 11/03/18 15:15 11/03/18 15:16 DC 11/03/18 15:33 15 MG Vital Signs/I&O 11/03/18 13:37 Temp 97.8 Pulse 84 Resp 16 B/P (MAP) 84/60 (68) Pulse Ox 99 Blood Pressure Mean: 68 Departure Communication (Admissions) 1693-I discussed with [facility], most recent labs they have on file from 2015 showing BUN of 31 creatinine 1.24. [facility] lab did have blood samples including a TSH and a chemistry panel on 09/25/18. She'll fax results. This showed a BUN of 34 and creatinine of 1.3 with GFR of 41 1700-spoke with [facility] Dr. De Jesus, accepts patient for transfer to the ICU. Would like Kayexalate 45 g by mouth times Impression Primary Impression: ARF (acute renal failure) Additional Impression: Left leg DVT Qualified Codes: I82.402 - Acute embolism and thrombosis of unspecified deep veins of left lower extremity Disposition: ADMITTED INPATIENT Condition: Stable Departure-Patient Inst. Decision time for Depature: 15:24 Referrals: ALLYSON METCALF MD (PCP/Family) Primary Care Physician Copy Copies To 1: ALLYSON METCALF MD, PETER J SHIPPING/RECEIVING MANAGER Nov 03, 2018 15:04
[2018-11-03] MEDS ORDERED: RIVAROXABAN 15 MG TABLET (XARELTO) PO ONE (15:15)
[2018-11-03 15:21] LABS: ALBUMIN 4.3 GM/DL (3.2-4.5); BILIRUBIN,TOTAL 0.2 MG/DL (0.1-1.0); CALCIUM 11.6 MG/DL (8.5-10.1); CREATININE SERUM 4.01 MG/DL (0.60-1.30); POTASSIUM 6.4 MMOL/L (3.6-5.0); TOTAL PROTEIN 7.1 GM/DL (6.4-8.2)
[2018-11-03] MEDS ORDERED: RIVA15TA2 PO (15:29)
[2018-11-03] MEDS ORDERED: RIVA20TA PO (15:29)
[2018-11-03] MEDS ORDERED: inSUlin (REGULAR) HUMAN 1 UNIT/0.01 ML (CHARGE PER UNIT) IV SCH (15:45)
[2018-11-03] MEDS ORDERED: DEXTROSE 50% 50 ML (IMS) SYR IV ONE (15:45)
[2018-11-03] MEDS ORDERED: SOD POLYSTERENE 15 GM/60 ML (KAYEXALATE) UNIT DOSE PO ONE (17:00)
[2018-11-03 17:50] VITALS: BP 137/77
== END 2018-11-03 17:50 | disposition short-term general hospital (02) ==
LOC: EDUNIT# 13:19 → ER 13:20
DX: I82.402 Acute embolism and thrombosis of unspecified deep veins of left lower extremity (principal); N17.9 Acute kidney failure, unspecified; E11.9 Type 2 diabetes mellitus without complications; E03.9 Hypothyroidism, unspecified; F32.9 Major depressive disorder, single episode, unspecified; Z85.820 Personal history of malignant melanoma of skin; Z79.82 Long term (current) use of aspirin; Z79.4 Long term (current) use of insulin; Z90.710 Acquired absence of both cervix and uterus
CPT/HCPCS: 36415; 80053; 82962; 85025; 93005

== ENCOUNTER → 2018-11-03 | Outpatient (CLI) | payer MEDICARE, OTHER ==
[~2018-11-03] MED LIST changes: +RIVA15TA2 PO; +RIVA20TA PO
--- NOTE | 2018-11-03 13:31 | Diagnostic Imaging Report ---
PROCEDURE: US left lower extremity venous. TECHNIQUE: Multiple real-time grayscale images were obtained over the left lower extremity in various projections. Additional duplex Doppler and color Doppler images were also obtained. INDICATION: Edema and radiculopathy. FINDINGS: There is a large burden of hypoechoic acute-appearing occlusive deep vein thrombus throughout the left common femoral vein, the profunda, superficial femoral vein, as well as the popliteal, and in the peroneal trunk. There is some superficial flow within the calf veins. IMPRESSION: Extensive occlusive acute-appearing left lower extremity deep venous thrombus burden is confirmed. Ordering physician notified. The patient was sent to the ER. Faxed to [facility] at 1:30 p.m. by cvb. Dictated by: Dictated on workstation # [id number]
== END ==
LOC: RAD 12:25
PROVIDERS: ATTEND Chiropractor
DX: I82.412 Acute embolism and thrombosis of left femoral vein (principal); I82.432 Acute embolism and thrombosis of left popliteal vein
CPT/HCPCS: 82962

== ENCOUNTER 2018-11-28 11:42 | Emergency (ER) | payer MEDICARE, OTHER ==
[~2018-11-28] VITALS: Ht 157.5 cm; Wt 48.1 kg
[~2018-11-28 11:42] MED LIST changes: +RIVA15TA2 PO; +RIVA20TA PO
--- OUTSIDE RECORDS SUMMARY | 2018-11-28 11:59 | XMS REPORT | Continuity of Care Document ---
Author Organization Unknown Address Unknown Allergies Active Description Code Type Severity Reaction Onset Reported/Identified Relationship to Patient Clinical Status Yes No Known Drug Allergies [id number] Drug Allergy Unknown N/A 11/03/2018 Medications There is no data. Problems Date [...] PAUL Ot V76.12 09/05/2014 RADHA MAGANA, JARED Pinto Ot 272.4 [...] A Ot V76.12 10/23/2014 JAMILAH ROSEANN Shook EXPERIMENTAL TECHNICIAN Ot 793.80 10/23/2014 ELIZABETH MAGANA, GIULIANO Plascencia [...] Ot 172.6 MALIG MELANOMA ARM 11/15/2014 GIULIANO JOHNSON MD Ot V58.69 OTH MED,LT,CURRENT USE 01/28/2015 SMITH HERRERA DO Ot 719.41 04/25/2015 Ot 789.04 04/25/2015 Ot 789.01 04/25/2015 Ot 575.8 04/25/2015 Ot V72.63 04/25/2015 Ot V74.8 04/25/2015 Ot V76.12 04/25/2015 GIULIANO JOHNSON MD Ot 709.9 04/25/2015 GIULIANO JOHNSON MD Ot V72.84 04/25/2015 GIULIANO JOHNSON MD Ot V74.8 05/15/2015 SLICK VELEZ, GABI Plascencia Ot M79.661 05/15/2015 SLICK VELEZ, GABI Plascencia Ot R22.41 05/16/2015 Ot 789.04 05/16/2015 Ot 789.01 05/16/2015 Ot 575.8 05/16/2015 Ot V72.63 05/16/2015 Ot V74.8 05/16/2015 Ot V76.12 05/16/2015 ELIZABETH MAGANA, GIULIANO Plascencia Ot 709.9 05/16/2015 ELIZABETH MAGANA, GIULIANO Plascencia Ot V72.84 05/16/2015 ELIZABETH MAGANA, GIULIANO M Ot V74.8 05/16/2015 SLICK VELEZ, GABI Plascencia Ot M79.661 05/16/2015 SLICK VELEZ, GABI Plascencia Ot R22.41 09/24/2015 INGA THORPE EXPERIMENTAL TECHNICIAN Ot Z12.31 ENCNTR SCREEN MAMMOGRAM FOR MALIGNANT NE 09/24/2015 INGA THORPE EXPERIMENTAL TECHNICIAN Ot Z12.31 ENCNTR SCREEN MAMMOGRAM FOR MALIGNANT NE 09/26/2015 INGA THORPE EXPERIMENTAL TECHNICIAN Ot Z12.31 ENCNTR SCREEN MAMMOGRAM FOR MALIGNANT NE 10/24/2015 INGA THORPE EXPERIMENTAL TECHNICIAN Ot Z12.31 ENCNTR SCREEN MAMMOGRAM FOR MALIGNANT NE 11/13/2015 Ot 272.4 HYPERLIPIDEMIA NEC/NOS 11/13/2015 Ot 401.9 HYPERTENSION NOS 11/13/2015 Ot 414.01 CORONARY ATHEROSCLEROSIS OF [place] CORON 11/13/2015 Ot 786.50 CHEST PAIN NOS [...] NOS 11/13/2015 ELIZABETH MAGANA, GIULIANO Plascencia Ot V72.84 EXAM [...] MAMMO-MALIGN NEOPLASM OF [place] 11/13/2015 ROSEANN ASKEW EXPERIMENTAL TECHNICIAN Ot 793.80 UNSPEC ABNORMAL MAMMOGRAM 11/13/2015 ELIZABETH [...] RAM Ot I25.10 ATHSCL HEART DISEASE OF [place] CORONARY 11/13/2015 CELE RAM Ot I25.10 ATHSCL HEART DISEASE OF [place] CORONARY 11/13/2015 CELE RAM Ot I25.10 ATHSCL HEART DISEASE OF [place] CORONARY 11/14/2015 CELE RAM Ot E11.9 TYPE 2 DIABETES MELLITUS WITHOUT COMPLIC 11/14/2015 CELE RAM Ot I10 ESSENTIAL (PRIMARY) HYPERTENSION 11/14/2015 CELE RAM Ot I25.10 ATHSCL HEART DISEASE OF [place] CORONARY 11/14/2015 CELE RAM Ot 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 11/19/2015 CELE RAM Ot E11.9 TYPE 2 DIABETES MELLITUS WITHOUT COMPLIC 11/19/2015 CELE RAM Ot I10 ESSENTIAL (PRIMARY) HYPERTENSION 11/19/2015 CELE RAM Ot I25.10 ATHSCL HEART DISEASE OF [place] CORONARY 11/19/2015 CELE RAM Ot 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 12/18/2015 CELE RAM Ot E11.9 TYPE 2 DIABETES MELLITUS WITHOUT COMPLIC 12/18/2015 CELE RAM Ot I10 ESSENTIAL (PRIMARY) HYPERTENSION 12/18/2015 CELE RAM Ot I25.10 ATHSCL HEART DISEASE OF [place] CORONARY 12/18/2015 CELE RAM Ot I65.23 OCCLUSION [...] MAMMO-MALIGN NEOPLASM OF [place] 12/26/2015 RADHA MAGANA, JAERD Pinto Ot 272.4 HYPERLIPIDEMIA NEC/NOS 12/26/2015 RADHA [...] RAM Ot I25.10 ATHSCL HEART DISEASE OF [place] CORONARY 12/26/2015 CELE RAM Ot I65.23 OCCLUSION [...] RAM Ot I25.10 ATHSCL HEART DISEASE OF [place] CORONARY 11/26/2016 CELE RAM Ot I65.23 OCCLUSION [...] MAMMO-MALIGN NEOPLASM OF [place] 12/01/2016 ROSEANN ASKEW EXPERIMENTAL TECHNICIAN Ot 793.80 UNSPEC ABNORMAL MAMMOGRAM 12/01/2016 GIULIANO [...] DO Ot M54.16 RADICULOPATHY, LUMBAR REGION 12/01/2016 ECLE RAM Ot E11.9 TYPE 2 DIABETES MELLITUS WITHOUT COMPLIC 12/01/2016 CELE RAM Ot I10 ESSENTIAL (PRIMARY) HYPERTENSION 12/01/2016 CELE RAM Ot I25.10 ATHSCL HEART DISEASE OF [place] CORONARY 12/01/2016 CELE RAM Ot 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 12/01/2016 INGA THORPE EXPERIMENTAL TECHNICIAN Ot Z12.31 ENCNTR SCREEN MAMMOGRAM FOR MALIGNANT NE 12/01/2016 DENISE GAY DO Ot M54.5 LOW BACK PAIN 12/01/2016 INGA THORPE EXPERIMENTAL TECHNICIAN Ot Z12.31 ENCNTR SCREEN MAMMOGRAM FOR MALIGNANT NE 12/02/2016 INGA THORPE EXPERIMENTAL TECHNICIAN Ot Z12.31 ENCNTR SCREEN MAMMOGRAM FOR MALIGNANT NE 12/03/2016 INGA THORPE EXPERIMENTAL TECHNICIAN Ot Z12.31 ENCNTR SCREEN MAMMOGRAM FOR MALIGNANT [...] MD Ot 786.50 CHEST PAIN NOS 06/09/2017 AJCKIE MAGANA, SOLIS Shook Ot V76.12 OTH SCREEN MAMMO-MALIGN NEOPLASM OF [place] 06/09/2017 ROSEANN ASKEW EXPERIMENTAL TECHNICIAN Ot 793.80 UNSPEC ABNORMAL MAMMOGRAM 06/09/2017 ELIZABETH [...] RAM Ot I25.10 ATHSCL HEART DISEASE OF [place] CORONARY 06/09/2017 CELE RAM Ot I65.23 OCCLUSION [...] M46.96 UNSPECIFIED INFLAMMATORY SPONDYLOPATHY, 06/17/2017 RUIY DO AMRIJA C Ot M47.816 SPONDYLOSIS W/O MYELOPATHY OR [...] RAM Ot I10 ESSENTIAL (PRIMARY) HYPERTENSION 11/25/2017 HUGHES-FANTASMA PA, CELE K Ot I25.10 ATHSCL HEART DISEASE OF [place] CORONARY 11/25/2017 CELE RAM Ot 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 11/25/2017 INGA THORPE Ot Z12.31 ENCNTR SCREEN MAMMOGRAM FOR MALIGNANT NE 11/25/2017 DENISE GAY DO Temo Ot M54.5 LOW BACK PAIN 11/25/2017 INGA THORPE Ot Z12.31 ENCNTR SCREEN MAMMOGRAM FOR MALIGNANT NE 11/25/2017 SWEANEY DO, MARIJA C Ot M43.16 SPONDYLOLISTHESIS, LUMBAR REGION 11/25/2017 SWEANEY DO, MARIJA C Ot M46.96 UNSPECIFIED INFLAMMATORY SPONDYLOPATHY, 11/25/2017 SWEANEY DO, MARIJA C Ot M47.816 SPONDYLOSIS W/O MYELOPATHY OR RADICULOPA 11/25/2017 SWEANEY DO, MARIJA C Ot M48.07 SPINAL STENOSIS, LUMBOSACRAL REGION 11/25/2017 SWEANEY DO, MARIJA C Ot M51.26 OTHER INTERVERTEBRAL DISC DISPLACEMENT, 11/25/2017 SWEANEY DO, MARIJA C Ot M71.38 OTHER BURSAL CYST, OTHER SITE 11/25/2017 SWEANEY DO, MARIJA C Ot Z91.81 HISTORY OF FALLING 11/25/2017 SWEANEY DO, MARIJA C Ot Z98.1 ARTHRODESIS STATUS 11/25/2017 ALLYSON METCALF MD Ot Z12.31 ENCNTR SCREEN MAMMOGRAM FOR MALIGNANT NE 11/28/2017 ALLYSON METCALF MD Ot Z12.31 ENCNTR SCREEN MAMMOGRAM FOR MALIGNANT NE 12/01/2017 ALLYSON METCALF MD Ot Z12.31 ENCNTR SCREEN MAMMOGRAM FOR MALIGNANT NE 11/03/2018 NOVA CM DC Ot R60.0 LOCALIZED EDEMA 11/03/2018 NOVA CM DC Ot R60.0 LOCALIZED EDEMA 11/04/2018 NOVA CM DC Ot I82.412 ACUTE EMBOLISM AND THROMBOSIS OF LEFT FE 11/04/2018 NOVA CM DC Ot I82.432 ACUTE EMBOLISM AND THROMBOSIS OF LEFT PO 11/06/2018 AVA LIRIANO APRN Ot E03.9 HYPOTHYROIDISM, UNSPECIFIED 11/06/2018 AVA LIRIANO APRN Ot E11.9 TYPE 2 DIABETES MELLITUS WITHOUT COMPLIC 11/06/2018 AVA LIRIANO APRN Ot F32.9 MAJOR DEPRESSIVE DISORDER, SINGLE EPISOD 11/06/2018 AVA LIRIANO APRN Ot I82.402 ACUTE EMBOLISM AND THOMBOS UNSP DEEP VEI 11/06/2018 AVA LIRIANO APRN Ot M79.89 OTHER SPECIFIED SOFT TISSUE DISORDERS 11/06/2018 AVA LIRIANO APRN Ot N17.9 ACUTE KIDNEY FAILURE, UNSPECIFIED 11/06/2018 AVA LIRIANO APRN Ot Z79.4 [facility] (CURRENT) USE OF INSULIN 11/06/2018 AVA LIRIANO APRN Ot Z79.82 MATERIAL DAMAGE ADJUSTER (CURRENT) USE OF ASPIRIN 11/06/2018 AVA LIRIANO APRN Ot Z85.820 PERSONAL HISTORY OF MALIGNANT MELANOMA O 11/06/2018 AVA LIRIANO APRN Ot Z90.710 ACQUIRED ABSENCE OF BOTH CERVIX AND UTER Procedures There is no data. Results Test Result Range Complete blood count (CBC) with automated white blood cell (WBC) differential - 11/03/18 14:53 Blood leukocytes automated count (number/volume) 9.6 10*3/uL 4.3-11.0 Blood erythrocytes automated count (number/volume) 3.25 10*6/uL 4.35-5.85 Venous blood hemoglobin measurement (mass/volume) 10.5 g/dL 11.5-16.0 Blood hematocrit (volume fraction) 32 % 35-52 Automated erythrocyte mean corpuscular volume 99 [foz_us] 80-99 Automated erythrocyte mean corpuscular hemoglobin (mass per erythrocyte) 32 pg 25-34 Automated erythrocyte mean corpuscular hemoglobin concentration measurement (mass/volume) 33 g/dL 32-36 Automated erythrocyte distribution width ratio 14.9 % 10.0- 14.5 Automated blood platelet count (count/volume) 197 10*3/uL 130-400 Automated blood platelet mean volume measurement 9.6 [foz_us] 7.4-10.4 Automated blood neutrophils/100 leukocytes 74 % 42-75 Automated blood lymphocytes/100 leukocytes 14 % 12-44 Blood monocytes/100 leukocytes 10 % 0-12 Automated blood eosinophils/100 leukocytes 2 % 0-10 Automated blood basophils/100 leukocytes 0 % 0-10 Blood neutrophils automated count (number/volume) 7.1 10*3 1.8-7.8 Blood lymphocytes automated count (number/volume) 1.4 10*3 1.0-4.0 Blood monocytes automated count (number/volume) 1.0 10*3 0.0- 1.0 Automated eosinophil count 0.1 10*3/uL 0.0-0.3 Automated blood basophil count (count/volume) 0.0 10*3/uL 0.0-0.1 Comprehensive metabolic panel - 11/03/18 14:53 Serum or plasma sodium measurement (moles/volume) 137 mmol/L 135-145 Serum or plasma potassium measurement (moles/volume) 6.4 mmol/L 3.6-5.0 Serum or plasma chloride measurement (moles/volume) 109 mmol/L 98-107 Carbon dioxide 15 mmol/L 21-32 Serum or plasma anion gap determination (moles/volume) 13 mmol/L 5-14 Serum or plasma urea nitrogen measurement (mass/volume) 89 mg/dL 7-18 Serum or plasma creatinine measurement (mass/volume) 4.01 mg/dL 0.60-1.30 Serum or plasma urea nitrogen/creatinine mass ratio 22 NRG Serum or plasma creatinine measurement with calculation of estimated glomerular filtration rate 11 NRG Serum or plasma glucose measurement (mass/volume) 171 mg/dL 70-105 Serum or plasma calcium measurement (mass/volume) 11.6 mg/dL 8.5-10.1 Serum or plasma total bilirubin measurement (mass/volume) 0.2 mg/dL 0.1-1.0 Serum or plasma alkaline phosphatase measurement (enzymatic activity/volume) 35 U/L 40-136 Serum or plasma aspartate aminotransferase measurement (enzymatic activity/volume) 9 U/L 5-34 Serum or plasma alanine aminotransferase measurement (enzymatic activity/volume) 19 U/L 0-55 Serum or plasma protein measurement (mass/volume) 7.1 g/dL 6.4-8.2 Serum or plasma albumin measurement (mass/volume) 4.3 g/dL 3.2-4.5 CALCIUM CORRECTED 11.4 mg/dL 8.5-10.1 Capillary blood glucose measurement by glucometer (mass/volume) - 11/03/18 16:50 Capillary blood glucose measurement by glucometer (mass/volume) 97 mg/dL 70-110 Capillary blood glucose measurement by glucometer (mass/volume) - 11/03/18 17:45 Capillary blood glucose measurement by glucometer (mass/volume) 95 mg/dL 70-110 Encounters ACCT No. Visit Date/Time Discharge Status Pt. Type Provider Facility Loc./Unit Complaint [id number] 11/20/2018 12:37:00 11/20/2018 23:59:59 CLS Preadmit ALLYSON METCALF MD [facility] RAD SCREENING [id number] 11/03/2018 12:25:00 11/03/2018 23:59:59 CLS Outpatient NOVA MC DC [facility] RAD EDEMA,RADICULOPATHY [id number] 11/03/2018 13:20:00 11/03/2018 17:50:00 DIS Outpatient AVA LIRIANO APRN [facility] ER BLOOD CLOT [id number] 11/25/2017 08:54:00 11/25/2017 23:59:59 CLS Outpatient ALLYSON METCALF MD [facility] RAD SCREENING [id number] 06/11/2017 09:22:00 06/11/2017 23:59:59 CLS Outpatient MARIJA KRAFT DO [facility] RAD M54.5 LOW BACK PAIN [id number] 12/01/2016 09:31:00 12/01/2016 23:59:59 CLS Outpatient INGA THORPEP [facility] RAD SCREENING Z12.31 [id number] 12/11/2015 11:49:00 12/11/2015 23:59:59 CLS Outpatient DENISE GAY DO [facility] RAD BACK PAIN [id number] 11/13/2015 11:44:00 11/13/2015 23:59:59 CLS Outpatient CELE RAM [facility] CARD CAD,LOCO,HHD,HTN [id number] 09/23/2015 13:55:00 09/23/2015 23:59:59 CLS Outpatient INGA THORPE EXPERIMENTAL TECHNICIAN [facility] RAD SCREENING [id number] 05/16/2015 10:03:00 05/16/2015 23:59:59 CLS Outpatient SMITH HERRERA DO [facility] RAD LUMBAR RADICULOPATHY, LBP [id number] 04/25/2015 12:30:00 04/25/2015 23:59:59 CLS Outpatient GABI BARNES [facility] RAD RIGHT LEG SWELLING,CALF PAIN [id number] 01/08/2015 10:42:00 01/08/2015 23:59:59 CLS Outpatient SHARON SMITH TEIXEIRA [facility] RAD PAIN [id number] 11/15/2014 10:13:00 11/15/2014 14:20:00 DIS Outpatient GIULIANO JOHNSON MD [facility] SDC MELANOMA [id number] 11/13/2014 06:07:00 11/13/2014 23:59:59 CLS Outpatient ORALIA BARBOSA MD [facility] PREOP MELANOMA [id number] 10/23/2014 07:50:00 10/23/2014 11:00:00 DIS Outpatient GIULIANO JOHNSON MD [facility] SDC RECURRENT LESION RIGHT UPPER ARM [id number] 10/17/2014 14:05:00 10/17/2014 23:59:59 CLS Outpatient GIULIANO JOHNSON MD [facility] PREOP RECURRENT SKIN LESION RIGHT UPPER ARM [id number] 09/20/2014 08:56:00 09/20/2014 23:59:59 CLS Outpatient ROSEANN ASKEW [facility] RAD ABNORMAL MAMMO [id number] 09/05/2014 10:55:00 09/05/2014 23:59:59 CLS Outpatient SOLIS MEJIA MD [facility] RAD SCREENING [id number] 02/25/2014 07:23:00 02/25/2014 23:59:59 CLS Outpatient JARED GARCIA MD [facility] CARD CAD,LOCO,CP [id number] 02/22/2014 07:38:00 02/22/2014 23:59:59 CLS Outpatient JARED GARCIA MD [facility] CARD CAD,LOCO,HTN,HLP [id number] 06/11/2013 13:05:00 06/11/2013 23:59:59 CLS Outpatient PAUL SIN DO [facility] RAD SCREENING [id number] 09/26/2012 06:26:00 09/26/2012 12:00:00 DIS Outpatient GIULIANO JOHNSON MD [facility] SDC SKIN LESIONS [id number] 09/25/2012 08:51:00 09/25/2012 23:59:59 CLS Outpatient GIULIANO JOHNSON MD [facility] PREOP SKIN LESIONS [id number] 09/05/2014 10:54:00 Document Registration [id number] 09/05/2014 10:54:00 Document Registration [id number] 09/05/2014 10:54:00 Document Registration [id number] 09/05/2014 10:54:00 Document Registration [id number] 09/05/2014 10:53:00 Document Registration [id number] 10/01/2011 05:46:00 Document Registration [id number] 09/15/2011 09:16:00 Document Registration [id number] 08/24/2011 09:06:00 Document Registration [id number] 07/01/2011 06:02:00 Document Registration [id number] 06/23/2011 07:59:00 Document Registration [id number] 05/21/2011 09:15:00 Document Registration [email or web address] 01/08/2015 10:43:05 ACT Document Registration
--- NOTE | 2018-11-28 12:13 | ED Lower Extremity ---
General Chief Complaint: Lower Extremity Stated Complaint: ANKLE SWELLING Nursing Triage Note: pt states that she had a fall 3 weeks ago and twisted and heard a pop to her left ankle. pt assumed that swelling was due to a blood clot history. pt able to bear weight without difficulty. obvious signs of swelling to left ankle compared to right ankle. no brusing noted. pulses equal thorughout. Nursing Sepsis Screen: No Definite Risk History of Present Illness Date Seen by Provider: Nov 28, 2018 Time Seen by Provider: 12:08 Initial Comments all 3 weeks ago, and twisted left ankle, residual swelling and painful ambulation at times she has not been evaluated for the ankle she fell due to left foot gives out at times due to residual from a back surgery years ago has a stent and on eliquis for a known resolved per patient, blood clot left leg saw vascular last week and was told residual swelling left ankle was not due to the blood clot Pain/Injury Location: left ankle Method of Injury: fell Modifying Factors: Worse With Movement; Improves With Rest Allergies and Home Medications Allergies Coded Allergies: No Known Drug Allergies (Verified , 11/03/18) Home Medications Alprazolam 0.25 Mg Tablet, 0.25 MG PO TID PRN for ANXIETY, (Reported) PRN ANXIETY Aspirin 81 Mg Tabec, 81 MG PO DAILY, (Reported) Carvedilol Phosphate 20 Mg Cpmp.24hr, 20 MG PO HS, (Reported) Cholecalciferol 1,000 Unit Tablet, 2,000 UNIT PO DAILY, (Reported) TAKE 2 (1,000MG) TABS Estradiol 0.1 Mg Patch, 0.1 MG TD WEEKLY ON TUESDAY, (Reported) Fenofibrate,Micronized 145 Mg Tablet, 145 MG PO HS, (Reported) Insulin Lispro 100 Unit/1 Ml Cartridge, 1-20 UNIT SQ AC, (Reported) SLIDING SCALE INSULIN Levothyroxine Sodium 50 Mcg Tablet, 50 MCG PO DAILY, (Reported) Lisinopril 40 Mg Tablet, 40 MG PO HS, (Reported) Magnesium Oxide 250 Mg Tablet, 250 MG PO DAILY, (Reported) [place]-3/Dha/Epa/Fish Oil 1 Each Capsule.dr, 2,000 MG PO HS, (Reported) TAKES 2 CAPS OF 1000MG Rosuvastatin Calcium 20 Mg Tablet, 20 MG PO HS, (Reported) Telmisartan 80 Mg Tablet, 80 MG PO HS, (Reported) Tramadol HCl 50 Mg Tablet, 50 MG PO Q6H PRN for PAIN Prescribed by: AVA SANCHEZ on 11/28/18 1342 Tramadol Hcl 50 Mg Tablet, 50 MG PO BID PRN for PAIN Prescribed by: GUIDO MCCORMACK on 11/15/14 1400 Patient Home Medication List Home Medication List Reviewed: Yes (Will I am) Review of Systems Constitutional: No chills, No dizziness, No fever EENTM: no symptoms reported Respiratory: No cough, No dyspnea on exertion, No short of breath Cardiovascular: No chest pain; edema; No palpitations, No syncope Gastrointestinal: No abdominal pain, No constipation, No diarrhea Genitourinary: no symptoms reported Musculoskeletal: joint pain Skin: no symptoms reported Psychiatric/Neurological: No Symptoms Reported Past Tstzvbw-Gvxxkv-Fzeabx Hx Patient Social History Alcohol Use: Denies Use Recreational Drug Use: No 2nd Hand Smoke Exposure: No Recent Foreign Travel: No Contact w/Someone Who Travel: No Recent Infectious Disease Expo: No Recent Hopitalizations: No Physical Abuse: No Sexual Abuse: No Mistreated: No Fear: No Immunizations Up To Date Date of Pneumonia Vaccine: Feb 06, 2014 Date of Influenza Vaccine: Feb 06, 2011 Past Medical History Eye Surgery, Gallbladder, Hysterectomy, Orthopedic Respiratory: No Cardiac: No Neurological: No (numbness to left leg) Reproductive Disorders: No Sexually Transmitted Disease: No Gastrointestinal: No Musculoskeletal: Yes Arthritis, Chronic Back Pain Endocrine: Yes Diabetes, Insulin dep, Hypothyroidsim Cancer: Yes Melanoma Psychosocial: Yes Depression Integumentary: Yes (LESION, RIGHT MID UPPER ARM) Blood Disorders: No Physical Exam Vital Signs Vital Signs - First Documented 11/28/18 11:53 Temp 97.6 Pulse 86 Resp 18 B/P (MAP) 144/83 (103) Pulse Ox 96 O2 Delivery Room Air Capillary Refill : Less Than 3 Seconds Height, Weight, BMI Height: 5'2.00" Weight: 106lbs. 0oz. 48.862632om; 18.97 BMI Method:Stated General Appearance: WD/WN, no apparent distress Neck: non-tender, full range of motion, supple Cardiovascular: normal peripheral pulses, regular rate, rhythm Respiratory: chest non-tender, lungs clear Legs: left leg normal inspection Knees: left knee normal inspection Ankles: right ankle normal inspection, right ankle normal range of motion, right ankle no evidence of injury; left ankle bone tenderness, left ankle pain, left ankle soft tissue tenderness, left ankle swelling Feet: left foot non-tender, left foot normal inspection, left foot swelling Neurologic/Tendon: normal sensation, normal motor functions Neurologic/Psychiatric: no motor/sensory deficits, alert, normal mood/affect, oriented x 3 Skin: normal color, warm/dry Progress/Results/Core Measures Results/Orders My Orders Orders - AVA SANCHEZ APRN Ankle, Left, 3 Views (11/28/18 12:02) Ct Extremity Lower Left Wo (11/28/18 12:50) Vital Signs/I&O 11/28/18 11:53 Temp 97.6 Pulse 86 Resp 18 B/P (MAP) 144/83 (103) Pulse Ox 96 O2 Delivery Room Air Blood Pressure Mean: 103 Diagnostic Imaging Diagonstic Imaging: Xray Comments NAME: FATEMEH RAMOS [facility] REC#: [id number] PT STATUS: REG ER : 1940 PHYSICIAN: AVA SANCHEZ APRN ADMIT DATE: 11/28/18/ER Draft Date of Exam:11/28/18 ANKLE, LEFT, 3 VIEWS Left ankle at 12:16 p.m. INDICATION: Ankle pain. Three views are obtained. COMPARISON: There are no prior studies. FINDINGS: On the lateral view, there is a linear lucency extending longitudinally through the posterior aspect of the distal tibia. There may be a corresponding abnormality evident on the oblique view. This finding does not have the typical appearance for a fracture. If so, that possibility should still be considered. If further imaging is desired, the CT of left ankle is recommended. There is no other fracture or acute bony abnormality appreciated. The ankle mortise is not widened. There are several coarse calcifications in the soft tissues interposed between the medial malleolus and the medial aspect of the talus. These findings are probably a sequela of prior trauma. There is perhaps mild soft tissue edema about the ankle joint. IMPRESSION: 1. Linear lucency extending longitudinally through the posterior lateral aspect of the distal tibia is suspicious but not conclusive for a nondisplaced fracture. Recommendations as above. 2. There is no acute bony abnormality evident, otherwise. Dictated on workstation # [id number] Dict: 11/28/18 1230 Trans: 11/28/18 1239 [facility] [id number] Interpreted by: HITESH FULTON MD Electronically signed by: Departure Communication (Admissions) NAME: FATEMEH RAMOS [facility] REC#: [id number] PT STATUS: REG ER : 1940 PHYSICIAN: AVA SANCHEZ APRN ADMIT DATE: 11/28/18/ER Draft Date of Exam:11/28/18 CT EXTREMITY LOWER LEFT WO PROCEDURE: CT left lower extremity without contrast. TECHNIQUE: Multiple contiguous axial images were obtained through the left lower extremity without the use of intravenous contrast. Sagittal and coronal reformations were then performed. Auto Exposure Controls were utilized during the CT exam to meet ALARA standards for radiation dose reduction. INDICATION: Ankle pain. COMPARISON: There are no previous CT left ankle examinations available for comparison. FINDINGS: The plain film examination of the ankle performed prior to this study did raise the question of a nondisplaced fracture extending longitudinally through the posterolateral aspect of the tibia. On this exam, there is what appears to be a vascular groove in this area but there is no clear evidence for fracture. However, there is faint linear lucency extending through the anterior cortex of the fibula at this level. This finding does suggest a minute nondisplaced fracture. No other fracture or acute bony abnormality is appreciated. The calcific densities interposed between the medial malleolus and the medial aspect of the talus seen on the plain film exam are again evident. These are most likely a sequela of prior trauma. The ankle mortise is not widened and the talar dome is smooth. There is soft tissue edema about the ankle joint. IMPRESSION: 1. There is no evidence for fracture of the distal tibia but there does appear to be a nondisplaced fracture involving the anterior cortex of the distal fibula. Clinical followup is recommended. 2. There is no acute bony abnormality noted, otherwise. 3. These results were discussed with Ava Sanchez APRN. Dictated on workstation # [id number] Dict: 11/28/18 1322 Trans: 11/28/18 1340 [id number] [id number] Interpreted by: HITESH FULTON MD Electronically signed by: Impression Primary Impression: Fracture of distal fibula Qualified Codes: S82.832A - Other fracture of upper and lower end of left fibula, initial encounter for closed fracture Disposition: 01 HOME, SELF-CARE Condition: Stable Departure-Patient Inst. Decision time for Depature: 13:41 Referrals: ALLYSON METCALF MD (PCP/Family) Primary Care Physician Patient Instructions: Ankle Fracture (DC) Add. Discharge Instructions: 1. Wear the splint when you're up and about. Tylenol and Motrin for pain. discharge instructions reviewed with patient and/or family. Voiced unde rstanding. Scripts Tramadol HCl (Tramadol HCl) 50 Mg Tablet 50 MG PO Q6H PRN for PAIN for 3 Days, #20 TAB 0 Refills Prov: AVA SANCHEZ APRN 11/28/18 AVA SANCHEZ APRN Nov 28, 2018 12:13
--- NOTE | 2018-11-28 12:40 | Diagnostic Imaging Report ---
Left ankle at 12:16 p.m. INDICATION: Ankle pain. Three views are obtained. COMPARISON: There are no prior studies. FINDINGS: On the lateral view, there is a linear lucency extending longitudinally through the posterior aspect of the distal tibia. There may be a corresponding abnormality evident on the oblique view. This finding does not have the typical appearance for a fracture. If so, that possibility should still be considered. If further imaging is desired, the CT of left ankle is recommended. There is no other fracture or acute bony abnormality appreciated. The ankle mortise is not widened. There are several coarse calcifications in the soft tissues interposed between the medial malleolus and the medial aspect of the talus. These findings are probably a sequela of prior trauma. There is perhaps mild soft tissue edema about the ankle joint. IMPRESSION: 1. Linear lucency extending longitudinally through the posterior lateral aspect of the distal tibia is suspicious but not conclusive for a nondisplaced fracture. Recommendations as above. 2. There is no acute bony abnormality evident, otherwise. Dictated by: Dictated on workstation # [id number]
--- NOTE | 2018-11-28 13:41 | Diagnostic Imaging Report ---
PROCEDURE: CT left lower extremity without contrast. TECHNIQUE: Multiple contiguous axial images were obtained through the left lower extremity without the use of intravenous contrast. Sagittal and coronal reformations were then performed. Auto Exposure Controls were utilized during the CT exam to meet ALARA standards for radiation dose reduction. INDICATION: Ankle pain. COMPARISON: There are no previous CT left ankle examinations available for comparison. FINDINGS: The plain film examination of the ankle performed prior to this study did raise the question of a nondisplaced fracture extending longitudinally through the posterolateral aspect of the tibia. On this exam, there is what appears to be a vascular groove in this area but there is no clear evidence for fracture. However, there is faint linear lucency extending through the anterior cortex of the fibula at this level. This finding does suggest a minute nondisplaced fracture. No other fracture or acute bony abnormality is appreciated. The calcific densities interposed between the medial malleolus and the medial aspect of the talus seen on the plain film exam are again evident. These are most likely a sequela of prior trauma. The ankle mortise is not widened and the talar dome is smooth. There is soft tissue edema about the ankle joint. IMPRESSION: 1. There is no evidence for fracture of the distal tibia but there does appear to be a nondisplaced fracture involving the anterior cortex of the distal fibula. Clinical followup is recommended. 2. There is no acute bony abnormality noted, otherwise. 3. These results were discussed with Valente Sanchez APRN. Dictated by: Dictated on workstation # [id number]
[2018-11-28] MEDS ORDERED: TRAM50TA2 PO (13:42)
[2018-11-28 13:55] VITALS: BP 144/83
== END 2018-11-28 13:54 | disposition home or self-care (01) ==
LOC: ER 11:42 → EDUNIT# 11:42 → ER 13:54
DX: S82.832A Other fracture of upper and lower end of left fibula, initial encounter for closed fracture (principal); E03.9 Hypothyroidism, unspecified; E11.9 Type 2 diabetes mellitus without complications; F32.9 Major depressive disorder, single episode, unspecified; Z85.828 Personal history of other malignant neoplasm of skin; Z90.710 Acquired absence of both cervix and uterus; Z79.82 Long term (current) use of aspirin; Z79.4 Long term (current) use of insulin; X50.1XXA Overexertion from prolonged static or awkward postures, initial encounter
CPT/HCPCS: 73610; 73700

== ENCOUNTER → 2018-11-29 | Outpatient (CLI) | payer MEDICARE, OTHER ==
[~2018-11-29] MED LIST changes: +TRAM50TA2 PO
--- NOTE | 2018-11-29 18:07 | Diagnostic Imaging Report ---
EXAMINATION: Digital mammogram bilateral screening. The current study was also evaluated with a Computer Aided Detection (CAD) system. 3-D tomosynthesis was also performed and reviewed. INDICATION: Screening. COMPARISON: This study was compared to the prior exams of 11/25/2017, 12/01/2016 and 09/23/2015. At this time, there are no current complaints. FINDINGS: The fibroglandular tissue in both breasts is heterogeneously dense. This does limit the sensitivity of this exam. Overall, there does not appear to have been any significant change when compared to the prior study. No primary or secondary sign of malignancy is noted. 3D tomographic images fail to show any sign of malignancy. IMPRESSION: There is no radiographic evidence for malignancy. ACR BI-RADS Category 1: Negative. Result letter will be mailed to the patient. Note: At least 10% of breast cancer is not imaged by mammography. Dictated by: Dictated on workstation # [id number]
== END ==
LOC: RAD 10:48
PROVIDERS: ATTEND Family Medicine
DX: Z12.31 Encounter for screening mammogram for malignant neoplasm of breast (principal)
CPT/HCPCS: 77067

== ENCOUNTER 2019-05-07 11:58 | Emergency (ER) | payer MEDICARE, OTHER ==
[~2019-05-07] VITALS: Ht 157.5 cm; Wt 44.1 kg
[2019-05-07] MEDS ORDERED: NS IV 1000 ML 1,000 ML IV SCH (12:05)
[2019-05-07 12:17] LABS: BASOPHILS % (AUTO) 1 % (0-10); EOSINOPHILS # (AUTO) 0.2 10^3/uL (0.0-0.3); EOSINOPHILS % (AUTO) 5 % (0-10); HEMATOCRIT 33 % (35-52); HEMOGLOBIN 10.7 G/DL (11.5-16.0); LYMPHOCYTES # (AUTO) 1.7 X 10^3 (1.0-4.0); LYMPHOCYTES % (AUTO) 40 % (12-44); MEAN CORPUSCULAR HEMOGLOBIN 31 PG (25-34); MEAN CORPUSCULAR HGB CONC 33 G/DL (32-36); MEAN CORPUSCULAR VOLUME 95 FL (80-99); MEAN PLATELET VOLUME 10.7 FL (7.4-10.4); MONOCYTES # (AUTO) 0.5 X 10^3 (0.0-1.0); MONOCYTES % (AUTO) 11 % (0-12); NEUTROPHILS # (AUTO) 1.9 X 10^3 (1.8-7.8); NEUTROPHILS % (AUTO) 44 % (42-75); PLATELET COUNT 270 10^3/uL (130-400); RED CELL DISTRIBUTION WIDTH 13.1 % (10.0-14.5); WHITE BLOOD COUNT 4.3 10^3/uL (4.3-11.0)
--- NOTE | 2019-05-07 12:30 | NUR ---
Assisted pt to bedside commode to obtain clean catch urine sample. Pt tolerated well. Denies dizziness or weakness.
[2019-05-07 12:39] LABS: ALBUMIN 3.9 GM/DL (3.2-4.5); BILIRUBIN,TOTAL 0.3 MG/DL (0.1-1.0); CALCIUM 9.4 MG/DL (8.5-10.1); CREATININE SERUM 1.29 MG/DL (0.60-1.30); POTASSIUM 3.9 MMOL/L (3.6-5.0); TOTAL PROTEIN 6.4 GM/DL (6.4-8.2)
[2019-05-07 12:45] LABS: BILIRUBIN,URINE NEGATIVE (NEGATIVE); CLARITY,URINE CLEAR; COLOR,URINE YELLOW; GLUCOSE, URINE (UA) TRACE (NEGATIVE); KETONES,URINE NEGATIVE (NEGATIVE); LEUKOCYTE ESTERASE ,URINE NEGATIVE (NEGATIVE); NITRITE,URINE NEGATIVE (NEGATIVE); PH,URINE 5.5 (5-9); PROTEIN,URINE NEGATIVE (NEGATIVE)
[2019-05-07 12:53] LABS: BACTERIA,URINE TRACE /HPF; RBC,URINE RARE /HPF
--- NOTE | 2019-05-07 13:14 | ED General ---
General Chief Complaint: Altered Mental Status Stated Complaint: AMS Nursing Triage Note: Pt to room #3 via [facility] ems cart from home with c/o altered mental status. Ems advise upon arrival on scene, pt lethargic with initial blood glucose of 42 (oral glucose was then administered). Ems advise repeat blood glucose of 37 and IV D50 was administered through 20g to Lt a/c. Ems advise after IV d50, pt became alert and aware of her surroundings. Upon arrival pt a&ox3 with blood glucose reading of 370. Pt reports recent viral illness associated with N/V/D and decreased appetite. Pt reports she did not check her blood glucose this morning, nor did she eat breakfast. Pt denies nausea, vomiting, diarrhea, fever, chills, pain, or discomfort @ this time. Spouse @ side. Nursing Sepsis Screen: No Definite Risk History of Present Illness Date Seen by Provider: May 07, 2019 Time Seen by Provider: 12:00 Initial Comments 78-year-old female reports feeling lethargic and was barely responsive this morning to her spouse. EMS was called and she was found to have a blood sugar of 42, she denies eating breakfast this morning. They gave oral glucose and repeated the blood glucose to find it at 37 and then gave 1 amp of D50. Upon presentation to the emergency department she is alert and oriented. Repeat blood sugar was 370. She is a type II diabetic, she denies using any insulin in the last 24 hours and did not take her oral hyperglycemic medicines this morning. She does report over the last 2-3 days experiencing severe nausea, vomiting and diarrhea. It did resolve yesterday. However she reports not eating her usual amounts of food. At this time the patient is denying any complaints. She is conversing and her spouse is at the bedside. Timing/Duration: 1-3 Hours Severity: Moderate Associated Systoms: Denies Symptoms Allergies and Home Medications Allergies Coded Allergies: No Known Drug Allergies (Verified , 11/03/18) Home Medications Alprazolam 0.25 Mg Tablet, 0.25 MG PO TID PRN for ANXIETY, (Reported) PRN ANXIETY Aspirin 81 Mg Tabec, 81 MG PO DAILY, (Reported) Carvedilol Phosphate 20 Mg Cpmp.24hr, 20 MG PO HS, (Reported) Cholecalciferol 1,000 Unit Tablet, 2,000 UNIT PO DAILY, (Reported) TAKE 2 (1,000MG) TABS Estradiol 0.1 Mg Patch, 0.1 MG TD WEEKLY ON TUESDAY, (Reported) Fenofibrate,Micronized 145 Mg Tablet, 145 MG PO HS, (Reported) Insulin Lispro 100 Unit/1 Ml Cartridge, 1-20 UNIT SQ AC, (Reported) SLIDING SCALE INSULIN Levothyroxine Sodium 50 Mcg Tablet, 50 MCG PO DAILY, (Reported) Lisinopril 40 Mg Tablet, 40 MG PO HS, (Reported) Magnesium Oxide 250 Mg Tablet, 250 MG PO DAILY, (Reported) [place]-3/Dha/Epa/Fish Oil 1 Each Capsule.dr, 2,000 MG PO HS, (Reported) TAKES 2 CAPS OF 1000MG Rosuvastatin Calcium 20 Mg Tablet, 20 MG PO HS, (Reported) Telmisartan 80 Mg Tablet, 80 MG PO HS, (Reported) Tramadol HCl 50 Mg Tablet, 50 MG PO Q6H PRN for PAIN Prescribed by: AVA LIRIANO on 11/28/18 1342 Tramadol Hcl 50 Mg Tablet, 50 MG PO BID PRN for PAIN Prescribed by: GUIDO MCCORMACK on 11/15/14 1400 Patient Home Medication List Home Medication List Reviewed: Yes Review of Systems Review of Systems Constitutional: see HPI, dizziness, malaise (prior to arrival), weakness Respiratory: no symptoms reported, see HPI; No cough, No short of breath Gastrointestinal: no symptoms reported, see HPI; No abdominal pain, No diarrhea, No nausea, No vomiting All Other Systems Reviewed Negative Unless Noted: Yes Past Rfdodan-Iuyjqi-Nvxuxg Hx Past Med/Social Hx: Reviewed Nursing Past Med/Soc Hx Patient Social History Alcohol Use: Denies Use Recreational Drug Use: No Smoking Status: Never a Smoker 2nd Hand Smoke Exposure: No Recent Foreign Travel: No Contact w/Someone Who Travel: No Recent Infectious Disease Expo: No Recent Hopitalizations: No Immunizations Up To Date Date of Pneumonia Vaccine: Feb 06, 2014 Date of Influenza Vaccine: Feb 06, 2011 Past Medical History Eye Surgery, Gallbladder, Hysterectomy, Orthopedic Respiratory: No Cardiac: No Neurological: No (numbness to left leg) Reproductive Disorders: No Sexually Transmitted Disease: No Gastrointestinal: No Musculoskeletal: Yes Arthritis, Chronic Back Pain Endocrine: Yes Diabetes, Insulin dep, Hypothyroidsim Are Your Blood Sugars Over 250: No Cancer: Yes Melanoma Psychosocial: Yes Depression Integumentary: Yes (LESION, RIGHT MID UPPER ARM) Blood Disorders: No Physical Exam Vital Signs Vital Signs - First Documented 05/07/19 12:00 Temp 35.7 Pulse 66 Resp 15 B/P (MAP) 147/76 (99) Pulse Ox 100 O2 Delivery Room Air Capillary Refill : Less Than 3 Seconds Height, Weight, BMI Height: 5'2.00" Weight: 106lbs. 0oz. 48.437900cf; 17.00 BMI Method:Stated General Appearance: No Apparent Distress, WD/WN Eyes: Bilateral Eye Normal Inspection, Bilateral Eye PERRL, Bilateral Eye EOMI HEENT: PERRL/EOMI, TMs Normal, Normal ENT Inspection, Pharynx Normal Neck: Full Range of Motion, Normal Inspection, Non Tender, Supple Respiratory: Chest Non Tender, Lungs Clear, Normal Breath Sounds Cardiovascular: Regular Rate, Rhythm, No Edema, No Murmur, Normal Peripheral Pulses Gastrointestinal: Normal Bowel Sounds, Non Tender, Soft Extremity: Normal Capillary Refill, Normal Inspection, Normal Range of Motion, Non Tender, No Calf Tenderness, No Pedal Edema Neurologic/Psychiatric: Alert, Oriented x3, No Motor/Sensory Deficits, Normal M ood/Affect Skin: Normal Color, Warm/Dry; No Diaphoresis, No Pallor Progress/Results/Core Measures Suspected Sepsis Recent Fever Within 48 Hours: No Infection Criteria Present: None New/Unexplained Altered Menta: No Sepsis Screen: No Definite Risk SIRS Temperature: Pulse: 66 Respiratory Rate: 15 Laboratory Tests 05/07/19 12:00: White Blood Count 4.3 Blood Pressure 147 /76 Mean: 99 Laboratory Tests 05/07/19 12:00: Creatinine 1.29, Platelet Count 270, Total Bilirubin 0.3 Results/Orders Lab Results Laboratory Tests Test 05/07/19 12:00 05/07/19 12:02 05/07/19 12:30 05/07/19 12:58 Range/Units White Blood Count 4.3 4.3-11.0 10^3/uL Red Blood Count 3.43 L 4.35-5.85 10^6/uL Hemoglobin 10.7 L 11.5-16.0 G/DL Hematocrit 33 L 35-52 % Mean Corpuscular Volume 95 80-99 FL Mean Corpuscular Hemoglobin 31 25-34 PG Mean Corpuscular Hemoglobin Concent 33 32-36 G/DL Red Cell Distribution Width 13.1 10.0-14.5 % Platelet Count 270 130-400 10^3/uL Mean Platelet Volume 10.7 H 7.4-10.4 FL Neutrophils (%) (Auto) 44 42-75 % Lymphocytes (%) (Auto) 40 12-44 % Monocytes (%) (Auto) 11 0-12 % Eosinophils (%) (Auto) 5 0-10 % Basophils (%) (Auto) 1 0-10 % Neutrophils # (Auto) 1.9 1.8-7.8 X 10^3 Lymphocytes # (Auto) 1.7 1.0-4.0 X 10^3 Monocytes # (Auto) 0.5 0.0-1.0 X 10^3 Eosinophils # (Auto) 0.2 0.0-0.3 10^3/uL Basophils # (Auto) 0.0 0.0-0.1 10^3/uL Sodium Level 140 135-145 MMOL/L Potassium Level 3.9 3.6-5.0 MMOL/L Chloride Level 108 H 98-107 MMOL/L Carbon Dioxide Level 22 21-32 MMOL/L Anion Gap 10 5-14 MMOL/L Blood Urea Nitrogen 33 H 7-18 MG/DL Creatinine 1.29 0.60-1.30 MG/DL Estimat Glomerular Filtration Rate 40 BUN/Creatinine Ratio 26 Glucose Level 37 *L 70-105 MG/DL Calcium Level 9.4 8.5-10.1 MG/DL Corrected Calcium 9.5 8.5-10.1 MG/DL Total Bilirubin 0.3 0.1-1.0 MG/DL Aspartate Amino Transf (AST/SGOT) 19 5-34 U/L Alanine Aminotransferase (ALT/SGPT) 24 0-55 U/L Alkaline Phosphatase 42 40-136 U/L Total Protein 6.4 6.4-8.2 GM/DL Albumin 3.9 3.2-4.5 GM/DL Glucometer 370 H 193 H 70-110 MG/DL Urine Color YELLOW Urine Clarity CLEAR Urine pH 5.5 5-9 Urine Specific [place] 1.020 1.016-1.022 Urine Protein NEGATIVE NEGATIVE Urine Glucose (UA) TRACE H NEGATIVE Urine Ketones NEGATIVE NEGATIVE Urine Nitrite NEGATIVE NEGATIVE Urine Bilirubin NEGATIVE NEGATIVE Urine Urobilinogen 0.2 < = 1.0 MG/DL Urine Leukocyte Esterase NEGATIVE NEGATIVE Urine RBC (Auto) NEGATIVE NEGATIVE Urine RBC RARE /HPF Urine WBC NONE /HPF Urine Squamous Epithelial Cells 5-10 /HPF Urine Crystals NONE /LPF Urine Bacteria TRACE /HPF Urine Casts NONE /LPF Urine Mucus NEGATIVE /LPF Urine Culture Indicated NO My Orders Orders - CHELSY CHANCE Accucheck Stat ONCE (05/07/19 12:54) Vital Signs/I&O 05/07/19 05/07/19 12:00 13:37 Temp 35.7 35.7 Pulse 66 66 Resp 15 15 B/P (MAP) 147/76 (99) 121/65 (99) Pulse Ox 100 100 O2 Delivery Room Air Room Air Capillary Refill : Less Than 3 Seconds Blood Pressure Mean: 99 Point of Care Testing Finger Stick Blood Glucose: 193 Blood Glucose Action Taken: Provider notified. Progress Note : Time: 12:00 Progress Note Patient seen and evaluated, will obtain labs and continue to monitor. Accu-Chek 370. 1245 Labs were drawn from EMS, Accucheck 193. 1300 patient continues to be alert and oriented, she is taking water and saltines. She denies any confusion, lethargy, weakness, nausea or vomiting. She is conversing with her sister. No complaints at this time. 1315 discharge instructions and return precautions reviewed with the patient all questions answered. Departure Impression Primary Impression: Hypoglycemia Disposition: 01 HOME, SELF-CARE Condition: Improved Departure-Patient Inst. Decision time for Depature: 13:15 Referrals: ALLYSON METCALF MD (PCP/Family) Primary Care Physician Patient Instructions: Low Blood Sugar, Adult (DC) Add. Discharge Instructions: Eat small frequent meals over the next 2-3 days and continue to monitor your blood sugar at home. Follow-up with Dr. Metcalf if your symptoms are not improving or worsen. Return to the emergency department for low blood sugar, weakness, persistent nausea and vomiting, or new concerns. All discharge instructions reviewed with patient and/or family. Voiced understanding. CHELSY CHANCE May 07, 2019 13:14
[2019-05-07 13:37] VITALS: BP 121/65
== END 2019-05-07 13:38 | disposition home or self-care (01) ==
LOC: EDUNIT# 11:58 → ER 11:59
DX: E11.649 Type 2 diabetes mellitus with hypoglycemia without coma (principal); E03.9 Hypothyroidism, unspecified; F32.9 Major depressive disorder, single episode, unspecified; Z85.820 Personal history of malignant melanoma of skin; Z79.82 Long term (current) use of aspirin; Z79.52 Long term (current) use of systemic steroids; Z79.4 Long term (current) use of insulin; Z90.710 Acquired absence of both cervix and uterus
CPT/HCPCS: 36415; 80053; 81000; 82962; 85025; 96360

== ENCOUNTER → 2019-11-08 | Outpatient (CLI) | payer MEDICARE, OTHER ==
[~2019-11-08] MED LIST changes: -TRAM50TA2 PO; +TRM50T PO
== END ==
LOC: CARD 14:39
PROVIDERS: ATTEND Internal Medicine Cardiovascular Disease
DX: I11.9 Hypertensive heart disease without heart failure (principal); E78.2 Mixed hyperlipidemia; I65.29 Occlusion and stenosis of unspecified carotid artery; I34.0 Nonrheumatic mitral (valve) insufficiency
CPT/HCPCS: 93306

== ENCOUNTER → 2021-01-07 | Outpatient (CLI) | payer MEDICARE, OTHER ==
[~2021-01-07] MED LIST changes: +CATHETER FLUSH 10 ML SYR IV PRN; +REGADENOSON 0.4 MG/5 ML SYR (LEXISCAN) IV ONE
[2021-01-07 13:07] VITALS: BP 186/68
[2021-01-07 13:13] VITALS: BP 153/62
--- NOTE | 2021-01-07 15:59 | Cardiology Stress Test Report ---
Stress Test Report Date of Procedure/Referring: Date of Procedure: Jan 07, 2021 Jenae García Admitting Physician Jenaro Baker MD Indications: HTN Baseline Heart Rate: 73 Baseline Blood Pressure: Blood Pressure Systolic: 153 Blood Pressure Diastolic: 62 Baseline Vitals Vital Signs Date Time Temp Pulse Resp B/P (MAP) Pulse Ox O2 Delivery O2 Flow Rate FiO2 01/07/21 13:07 72 18 186/68 (107) 99 Room Air Baseline EKG: Baseline EKG: NSR Summary After explaining the procedure to the patient, she signed a consent and then brought to the stress nuclear laboratory. Patient received 0.4 mg Lexiscan for stress test, ECG, heart rate and blood pressure were monitored continuously. Resting and stress dose of radio tracer were injected, imaging was acquired and reviewed in short axis, horizontal long axis and vertical long axis views. TID: 0.93 SSS: 5 SDS: 2 EF: 87 1. Patient tolerated Lexiscan well 2. No significant ischemia or infarction on SPECT images 3. Normal left ventricular size, EF 87% JARED GARCIA MD Jan 07, 2021 15:59
== END ==
LOC: CARD 12:15
PROVIDERS: ATTEND Physician Assistant
DX: I25.10 Atherosclerotic heart disease of native coronary artery without angina pectoris (principal); I10 Essential (primary) hypertension
CPT/HCPCS: 78452; 93017; A9502

== ENCOUNTER → 2022-05-26 | Outpatient (CLI) | payer MEDICARE, OTHER ==
[~2022-05-26] MED LIST changes: -CATHETER FLUSH 10 ML SYR IV PRN; -REGADENOSON 0.4 MG/5 ML SYR (LEXISCAN) IV ONE
== END ==
LOC: CARD 10:26
PROVIDERS: ATTEND Physician Assistant
DX: I11.9 Hypertensive heart disease without heart failure (principal)
CPT/HCPCS: 93306

== ENCOUNTER 2022-11-22 16:59 | Emergency (ER) | payer MEDICARE, OTHER ==
--- NOTE | 2022-11-22 17:19 | ED Abdominal Pain ---
General Chief Complaint: Abdominal/GI Problems Stated Complaint: ABD PAIN Nursing Triage Note: PT AMB TO [facility] 7 WITH CC OF RLQ ABD PAIN SINCE LAST PM. PT STATES WAS SEEN AT [facility] AND SENT TO ED FOR FURTHER EVALUATION. PT DENIES N/V, REPORTS DIARRHEA. PT REPORTS FEVER OF 106.0 Source of Information: Patient Exam Limitations: No Limitations History of Present Illness Date Seen by Provider: Nov 22, 2022 Time Seen by Provider: 17:17 Initial Comments Patient is a 82-year-old female with a history of hysterectomy presents the ED with suprapubic pain, right lower quadrant pain. Pain started last night. This pain is described as sharp. Pain does not radiate. Pain has migrated to the right lower quadrant. Pain has increased. Went to urgent care had a temperature of 106 was given Tylenol with improvement of temperature on arrival. No vomiting but did have diarrhea today without any blood or mucus. She ate oatmeal this morning and did drink some water throughout the day. She is not on blood thinners. She is type II diabetic currently on insulin. She denies chest pain, cough, shortness of breath, fever, chills, body aches, vomit. Denies any urinary symptoms. No recent antibiotic use, travels Allergies and Home Medications Allergies Coded Allergies: No Known Drug Allergies (Verified , 11/03/18) Patient Home Medication List Home Medication List Reviewed: Yes Alprazolam (Alprazolam) 0.25 Mg Tablet, 0.25 MG PO TID PRN for ANXIETY, (Reported) Entered as Reported by: JULIAN WHITNEY on 10/17/14 1519 Aspirin (Aspirin Ec 81 Mg) 81 Mg Tabec, 81 MG PO DAILY, (Reported) Entered as Reported by: BRODY PORTER on 06/23/11 0830 Carvedilol Phosphate (Coreg Cr) 20 Mg Cpmp.24hr, 20 MG PO HS, (Reported) Entered as Reported by: JULIAN WHITNEY on 10/17/14 1515 Cephalexin (Cephalexin) 500 Mg Tablet, 500 MG PO BID Prescribed by: AGUSTIN MANLEY on 11/22/221920 Cephalexin (Cephalexin) 500 Mg Tablet, 500 MG PO BID Prescribed by: AGUSTIN MANLEY on 11/22/221929 Cholecalciferol (Vitamin D) 1,000 Unit Tablet, 2,000 UNIT PO DAILY, (Reported) Entered as Reported by: JULIAN WHITNEY on 10/17/14 151 Estradiol (Climara Patch) 0.1 Mg Patch, 0.1 MG TD WEEKLY ON TUESDAY, (Reported) Entered as Reported by: JULIAN WHITNEY on 10/17/14 151 Fenofibrate,Micronized (Tricor) 145 Mg Tablet, 145 MG PO HS, (Reported) Entered as Reported by: BRODY PORTER on 06/23/11 0830 Insulin Lispro (Humalog) 100 Unit/1 Ml Cartridge, 1-20 UNIT SQ AC, (Reported) Entered as Reported by: JULIAN WHITNEY on 10/17/141518 Levothyroxine Sodium (Levothyroxine 50 Mcg Tab) 50 Mcg Tablet, 50 MCG PO DAILY, (Reported) Entered as Reported by: ONEAL DEE on 09/25/12 0921 Lisinopril (Prinivil) 40 Mg Tablet, 40 MG PO HS, (Reported) Entered as Reported by: BRODY PORTER on 06/23/11 0830 Magnesium Oxide (Magnesium) 250 Mg Tablet, 250 MG PO DAILY, (Reported) Entered as Reported by: JULIAN WHITNEY on 10/17/141518 [place]-3/Dha/Epa/Fish Oil (Fish Oil 1,000 Mg Ec Softgel) 1 Each Capsule.dr, 2,000 MG PO HS, (Reported) Entered as Reported by: BRODY PORTER on 06/23/11 0830 Rosuvastatin Calcium (Crestor) 20 Mg Tablet, 20 MG PO HS, (Reported) Entered as Reported by: JULIAN WHITNEY on 10/17/14 151 Telmisartan (Telmisartan) 80 Mg Tablet, 80 MG PO HS, (Reported) Entered as Reported by: JULIAN WHITNEY on 10/17/14 151 Tramadol HCl (Tramadol HCl) 50 Mg Tablet, 50 MG PO Q6H PRN for PAIN Prescribed by: AVA LIRIANO on 11/28/18 1342 Tramadol Hcl (Ultram) 50 Mg Tablet, 50 MG PO BID PRN for PAIN Prescribed by: GUIDO MCCORMACK on 11/15/14 1400 Review of Systems Review of Systems Constitutional: No chills, No diaphoresis, No malaise, No weakness EENTM: No Double Vision, No Eye Pain Respiratory: Denies Cough, Denies Orthopnea Cardiovascular: Denies Chest Pain Gastrointestinal: Abdominal Pain, Diarrhea; Denies Nausea, Denies Vomiting Musculoskeletal: No back pain, No joint pain Skin: No change in color, No change in hair/nails All Other Systems Reviewed Negative Unless Noted: Yes Past Gfaczrw-Lieyki-Tzdxpo Hx Patient Social History Tobacco Use?: No Substance use?: No Alcohol Use?: No Pt feels they are or have been: No Past Medical History Surgery/Hospitalization HX: DM2 Eye Surgery, Gallbladder, Hysterectomy, Orthopedic Respiratory: No Cardiac: No Neurological: No (numbness to left leg) Reproductive Disorders: No Sexually Transmitted Disease: No Gastrointestinal: No Musculoskeletal: Yes Arthritis, Chronic Back Pain Endocrine: Yes Diabetes, Insulin dep, Hypothyroidsim Cancer: Yes Melanoma Psychosocial: Yes Depression Integumentary: Yes (LESION, RIGHT MID UPPER ARM) Blood Disorders: No Physical Exam Vital Signs Vital Signs - First Documented 11/22/22 17:07 Temp 37.2 Pulse 99 Resp 18 B/P (MAP) 169/65 (99) Pulse Ox 98 O2 Delivery Room Air Capillary Refill : Less Than 3 Seconds Height/Weight/BMI Height: 5'2.00" Weight: 106lbs. 0oz. [id number]; 17.00 BMI Method:Stated General Appearance: WD/WN, no apparent distress HEENT: PERRL/EOMI, normal ENT inspection, TMs normal, pharynx normal Neck: non-tender, full range of motion, supple, normal inspection Respiratory: chest non-tender, lungs clear, normal breath sounds, no respiratory distress, no accessory muscle use Cardiovascular: regular rate, rhythm, no edema, no gallop, no JVD Gastrointestinal: normal bowel sounds, soft, no organomegaly, tenderness (Right lower quadrant tenderness) Extremities: normal range of motion, non-tender, normal inspection Back: normal inspection, no CVA tenderness, no vertebral tenderness Skin: normal color, warm/dry Progress/Results/Core Measures Results/Orders Lab Results Laboratory Tests Test 11/22/22 17:12 11/22/22 18:40 Range/Units White Blood Count 11.7 H 4.3-11.0 10^3/uL Red Blood Count 3.52 L 3.80-5.11 10^6/uL Hemoglobin 10.6 L 11.5-16.0 g/dL Hematocrit 33 L 35-52 % Mean Corpuscular Volume 95 80-99 fL Mean Corpuscular Hemoglobin 30 25-34 pg Mean Corpuscular Hemoglobin Concent 32 32-36 g/dL Red Cell Distribution Width 13.2 10.0-14.5 % Platelet Count 282 130-400 10^3/uL Mean Platelet Volume 10.2 9.0-12.2 fL Immature Granulocyte % (Auto) 0 % Neutrophils (%) (Auto) 84 H 42-75 % Lymphocytes (%) (Auto) 9 L 12-44 % Monocytes (%) (Auto) 6 0-12 % Eosinophils (%) (Auto) 1 0-10 % Basophils (%) (Auto) 0 0-10 % Neutrophils # (Auto) 9.8 H 1.8-7.8 10^3/uL Lymphocytes # (Auto) 1.0 1.0-4.0 10^3/uL Monocytes # (Auto) 0.7 0.0-1.0 10^3/uL Eosinophils # (Auto) 0.1 0.0-0.3 10^3/uL Basophils # (Auto) 0.0 0.0-0.1 10^3/uL Immature Granulocyte # (Auto) 0.1 0.0-0.1 10^3/uL Sodium Level 136 135-145 MMOL/L Potassium Level 5.1 H 3.6-5.0 MMOL/L Chloride Level 105 98-107 MMOL/L Carbon Dioxide Level 22 21-32 MMOL/L Anion Gap 9 5-14 MMOL/L Blood Urea Nitrogen 45 H 7-18 MG/DL Creatinine 2.41 H 0.60-1.30 MG/DL Estimat Glomerular Filtration Rate 19 BUN/Creatinine Ratio 19 Glucose Level 249 H 70-105 MG/DL Calcium Level 9.3 8.5-10.1 MG/DL Corrected Calcium 9.3 8.5-10.1 MG/DL Total Bilirubin 0.5 0.1-1.0 MG/DL Aspartate Amino Transf (AST/SGOT) 14 5-34 U/L Alanine Aminotransferase (ALT/SGPT) 20 0-55 U/L Alkaline Phosphatase 38 L 40-136 U/L Total Protein 7.1 6.4-8.2 GM/DL Albumin 4.0 3.2-4.5 GM/DL Lipase 38 8-78 U/L Urine Color YELLOW Urine Clarity CLEAR Urine pH 5.5 5-9 Urine Specific [place] 1.010 L 1.016-1.022 Urine Protein NEGATIVE NEGATIVE Urine Glucose (UA) NEGATIVE NEGATIVE Urine Ketones NEGATIVE NEGATIVE Urine Nitrite NEGATIVE NEGATIVE Urine Bilirubin NEGATIVE NEGATIVE Urine Urobilinogen 0.2 < = 1.0 MG/DL Urine Leukocyte Esterase 1+ H NEGATIVE Urine RBC (Auto) NEGATIVE NEGATIVE Urine RBC NONE /HPF Urine WBC 5-10 H /HPF Urine Squamous Epithelial Cells RARE /HPF Urine Crystals NONE /LPF Urine Bacteria MODERATE H /HPF Urine Casts NONE /LPF Urine Mucus NEGATIVE /LPF Urine Culture Indicated YES My Orders Orders - GENESIS GARG Ua Culture If Indicated (11/22/22 17:00) Cbc With Automated Diff (11/22/22 17:15) Comprehensive Metabolic Panel (11/22/22 17:15) Lipase (11/22/22 17:15) Ns Iv 1000 Ml (Sodium Chloride 0.9%) (11/22/22 17:51) Ct Abdomen/Pelvis Wo (11/22/22 17:15) Urine Culture (11/22/22 18:40) Vital Signs/I&O 11/22/22 11/22/22 17:07 19:29 Temp 37.2 Pulse 99 91 Resp 18 18 B/P (MAP) 169/65 (99) 112/56 Pulse Ox 98 98 O2 Delivery Room Air Room Air Blood Pressure Mean: 99 Departure Communication (PCP) HistoryPatient is a 82-year-old female with a history of frequent urinary tract infections who presents the ED with suprapubic right lower quadrant pain, and right sided abd pain. Symptoms started last night. This pain has increased described as sharp. history of Hysterectomy. Started having diarrhea today. Patient is diabetic and on insulin. Differential diagnosis, appendicitis, UTI, diverticulitis, pyelonephritis. She was afebrile. She had a temperature at urgent care as high as 106 according to patient. She took Tylenol. Would suspect her temperature to still be elevated since she just came from urgent care. CBC, CMP, lipase urinalysis was ordered. CBC white blood count 11.7. Chemistry showed potassium 5.1, creatinine of 2.41, BUN of 45, GFR 16. Blood sugar 249. Urinalysis with leukocytes, white blood cell and bacteria. History of frequent urinary tract infections. She does not have any specific urinary symptoms. Due to the change in kidney function CT abdomen pelvis without contrast was ordered. CT abdomen and pelvis shows scattered segmental mucosal thickening with some air-fluid levels in the small bowel suggesting an element of enteritis. Other chronic findings were noted and discussed. No evidence of appendicitis. Refuse anything for pain. Not currently on anticoagulant. History of DVT. She does have IVC filter. Denies chest pain or shortness of breath. She did receive a liter of fluid. I do not have any recent baseline of her kidney function. I recommended admission for IV fluids. She denies any recent antibiotic use. No bloody or mucousy stools. There appears to be more viral. After talking to hospitalist Dr. Cardoza about admission patient refused and states she want to go home. According to family she has been working outside for the past 10 days or so. History of acute kidney failure in the past that required admission and IV fluids. Discussed my concerns that this potentially may worsen. She acknowledges. She refused any more IV fluids during her stay. I will prescribe Keflex for potential UTI with a strong history of UTI. I strongly recommend recheck of lab work in 1 to 2 days with your primary. Continue staying hydrated with fluids, Pedialyte. Patient states she is feeling much better at this time. If worsening pain, fever, bloody or mucousy stool to return back to ED Impression Primary Impression: Enteritis Additional Impressions: DRU (acute kidney injury) UTI (urinary tract infection) Disposition: 01 HOME, SELF-CARE Condition: Stable Departure-Patient Inst. Decision time for Depature: 19:20 Referrals: ALLYSON METCALF MD (PCP/Family) Primary Care Physician Patient Instructions: [id number], Urinary Tract Infection, Adult ED Add. Discharge Instructions: Recommend drinking Pedialyte staying hydrated for the next 2 to 3 days. Keflex for potential UTI. If diarrhea becomes worse such as bloody mucousy stool, fever, worsening abdominal pain to return back to ED. Recommend following up with your PCP in a few days for recheck of lab work and today symptom All discharge instructions reviewed with patient and/or family. Voiced understanding. Scripts Cephalexin (Cephalexin) 500 Mg Tablet 500 MG PO BID for 7 Days, #14 TAB Prov: GENESIS GARG 11/22/22 Cephalexin (Cephalexin) 500 Mg Tablet 500 MG PO BID for 7 Days, #14 TAB Prov: GENESIS GARG 11/22/22 GENESIS GARG Nov 22, 2022 17:19
[2022-11-22 17:22] LABS: BASOPHILS % (AUTO) 0 % (0-10); EOSINOPHILS # (AUTO) 0.1 10^3/uL (0.0-0.3); EOSINOPHILS % (AUTO) 1 % (0-10); HEMATOCRIT 33 % (35-52); HEMOGLOBIN 10.6 g/dL (11.5-16.0); LYMPHOCYTES % (AUTO) 9 % (12-44); MEAN CORPUSCULAR HEMOGLOBIN 30 pg (25-34); MEAN CORPUSCULAR HGB CONC 32 g/dL (32-36); MEAN CORPUSCULAR VOLUME 95 fL (80-99); MEAN PLATELET VOLUME 10.2 fL (9.0-12.2); MONOCYTES # (AUTO) 0.7 10^3/uL (0.0-1.0); MONOCYTES % (AUTO) 6 % (0-12); NEUTROPHILS # (AUTO) 9.8 10^3/uL (1.8-7.8); NEUTROPHILS % (AUTO) 84 % (42-75); PLATELET COUNT 282 10^3/uL (130-400); WHITE BLOOD COUNT 11.7 10^3/uL (4.3-11.0)
[2022-11-22 17:30] LABS: POTASSIUM 5.1 MMOL/L (3.6-5.0)
[2022-11-22 17:31] LABS: CALCIUM 9.3 MG/DL (8.5-10.1)
[2022-11-22 17:32] LABS: TOTAL PROTEIN 7.1 GM/DL (6.4-8.2)
[2022-11-22 17:34] LABS: BILIRUBIN,TOTAL 0.5 MG/DL (0.1-1.0)
[2022-11-22 17:36] LABS: CREATININE SERUM 2.41 MG/DL (0.60-1.30)
[2022-11-22] MEDS ORDERED: NS IV 1000 ML 1,000 ML IV STA (17:51)
--- NOTE | 2022-11-22 18:21 | Diagnostic Imaging Report ---
PROCEDURE: CT abdomen and pelvis without contrast. TECHNIQUE: Multiple contiguous axial images were obtained through the abdomen and pelvis without the use of intravenous contrast. Auto Exposure Controls were utilized during the CT exam to meet ALARA standards for radiation dose reduction. INDICATION: 82-year-old female with right-sided abdominal pain. COMPARISONS: None. FINDINGS: Lung bases are clear. Cardiac contour is normal. Liver shows uniform attenuation. Gallbladder is surgically absent. Spleen and GE junction are normal. Stomach and duodenal sweep are unremarkable. Pancreas shows sharp margins. Adrenals are normal. Kidneys appear normal in size, position, and contour. There is a slight lumpy bumpy contour as may be seen with some persistent lobulation. There is no evidence of hydronephrosis or hydroureter. Both ureters are seen intermittently through their course and appear unremarkable. The beam hardening artifact from the spinal hardware does limit assessment. There is an IVC filter in place. Bladder is nondistended. A few pelvic phleboliths are seen. Nonopacified loops of small bowel show some fluid-filled loops with a few scattered air-fluid levels. Large bowel contains fecal material and gas, and the distal colon is mostly decompressed. There are scattered diverticula, but no significant diverticulosis or acute diverticulitis. The appendix is unremarkable. There are nonaneurysmal aortic calcifications extending into the iliac and femoral arteries. IMPRESSION: 1. Beam hardening artifact from the lower lumbar fusion does limit assessment. 2. There is some scattered segmental mucosal thickening with some air-fluid levels in the small bowel suggesting an element of enteritis. 3. There is an IVC filter in place with several of the tines extending outside the confines of the IVC. 4. Surgically absent gallbladder. 5. No evidence of obstructive uropathy or appendicitis. There are a few scattered diverticula, but no diverticulosis or acute diverticulitis. Additional nonemergent findings as described above. Dictated by: Dictated on workstation # [id number]
[2022-11-22 18:55] LABS: BILIRUBIN,URINE NEGATIVE (NEGATIVE); CLARITY,URINE CLEAR; COLOR,URINE YELLOW; GLUCOSE, URINE (UA) NEGATIVE (NEGATIVE); KETONES,URINE NEGATIVE (NEGATIVE); LEUKOCYTE ESTERASE ,URINE 1+ (NEGATIVE); NITRITE,URINE NEGATIVE (NEGATIVE); PH,URINE 5.5 (5-9); PROTEIN,URINE NEGATIVE (NEGATIVE)
[2022-11-22 19:15] LABS: BACTERIA,URINE MODERATE /HPF; SQUAMOUS EPITHELIAL CELL,UR RARE /HPF
[2022-11-22] MEDS ORDERED: CEPH500T PO ×2 (19:21→19:30)
[2022-11-22 19:29] VITALS: BP 112/56
== END 2022-11-22 19:29 | disposition home or self-care (01) ==
LOC: EDUNIT# 16:59 → ER 17:01
DX: K52.9 Noninfective gastroenteritis and colitis, unspecified (principal); N17.9 Acute kidney failure, unspecified; N39.0 Urinary tract infection, site not specified; E11.9 Type 2 diabetes mellitus without complications; Z79.4 Long term (current) use of insulin; Z86.718 Personal history of other venous thrombosis and embolism; Z95.828 Presence of other vascular implants and grafts
CPT/HCPCS: 36415; 74176; 80053; 81000; 83690; 85025; 87077; 87088; 87186

== ENCOUNTER 2023-01-18 11:17 | Emergency (ER) | payer MEDICARE, OTHER ==
[~2023-01-18] VITALS: Ht 157.8 cm; Wt 47.0 kg
[~2023-01-18 11:17] MED LIST changes: +CEPH500T PO
--- NOTE | 2023-01-18 11:39 | ED Lower Extremity ---
General Chief Complaint: Lower Extremity Stated Complaint: LT LEG SWELLING Nursing Triage Note: pt states she had a dvt 5 years ago and she is having similar symptoms today. states she has pain and swelling in her left leg that started this morning Source: patient Exam Limitations: no limitations History of Present Illness Date Seen by Provider: Jan 18, 2023 Time Seen by Provider: 11:37 Initial Comments Patient is a 82-year-old female with a history of an IVC filter DVT left leg 5 years ago presents ED with left leg pain and swelling. She states she woke up with pain this morning with swelling. She reports pain with walking. She states she did injure her left lower anterior leg 1 week ago while working in the garden. She has a small abrasion. She denies of any significant drainage from that site or surrounding redness. Pain does radiate up to the left thigh. She denies chest pain, cough, shortness of breath, nausea, vomiting, diarrhea, headache, dizziness, fever. Denies history of smoking. History of diabetes. Allergies and Home Medications Allergies Coded Allergies: No Known Drug Allergies (Verified , 11/03/18) Patient Home Medication List Home Medication List Reviewed: Yes Alprazolam (Alprazolam) 0.25 Mg Tablet, 0.25 MG PO TID PRN for ANXIETY, (Reported) Entered as Reported by: JULIAN WHITNEY on 10/17/14 1519 Aspirin (Aspirin Ec 81 Mg) 81 Mg Tabec, 81 MG PO DAILY, (Reported) Entered as Reported by: BRODY PORTER on 06/23/11 0830 Carvedilol Phosphate (Coreg Cr) 20 Mg Cpmp.24hr, 20 MG PO HS, (Reported) Entered as Reported by: JLUIAN WHITNEY on 10/17/14 1515 Cephalexin (Cephalexin) 500 Mg Tablet, 500 MG PO BID Prescribed by: AGUSTIN MANLEY on 11/22/221920 Cephalexin (Cephalexin) 500 Mg Tablet, 500 MG PO BID Prescribed by: AGUSTIN MANLEY on 11/22/22 193 Cholecalciferol (Vitamin D) 1,000 Unit Tablet, 2,000 UNIT PO DAILY, (Reported) Entered as Reported by: JULIAN WHITNEY on 10/17/14 151 Enoxaparin Sodium (Lovenox) 60 Mg/0.6 Ml Syringe, 50 MG SQ DAILY Prescribed by: AGUSTIN MANLEY on 01/18/23 1422 Estradiol (Climara Patch) 0.1 Mg Patch, 0.1 MG TD WEEKLY ON TUESDAY, (Reported) Entered as Reported by: JULIAN WHITNEY on 10/17/14 151 Fenofibrate,Micronized (Tricor) 145 Mg Tablet, 145 MG PO HS, (Reported) Entered as Reported by: BRODY PORTER on 06/23/11 0830 Insulin Lispro (Humalog) 100 Unit/1 Ml Cartridge, 1-20 UNIT SQ AC, (Reported) Entered as Reported by: JULIAN WHITNEY on 10/17/14 151 Levothyroxine Sodium (Levothyroxine 50 Mcg Tab) 50 Mcg Tablet, 50 MCG PO DAILY, (Reported) Entered as Reported by: ONEAL DEE on 09/25/12 0921 Lisinopril (Prinivil) 40 Mg Tablet, 40 MG PO HS, (Reported) Entered as Reported by: BRODY PORTER on 06/23/11 0830 Magnesium Oxide (Magnesium) 250 Mg Tablet, 250 MG PO DAILY, (Reported) Entered as Reported by: JULIAN WHITNEY on 10/17/14 151 Pelican-3/Dha/Epa/Fish Oil (Fish Oil 1,000 Mg Ec Softgel) 1 Each Capsule.dr, 2,000 MG PO HS, (Reported) Entered as Reported by: BRODY PORTER on 06/23/11 0830 Rosuvastatin Calcium (Crestor) 20 Mg Tablet, 20 MG PO HS, (Reported) Entered as Reported by: JULIAN WHITNEY on 10/17/14 151 Telmisartan (Telmisartan) 80 Mg Tablet, 80 MG PO HS, (Reported) Entered as Reported by: JULIAN HWITNEY on 10/17/14 151 Tramadol HCl (Tramadol HCl) 50 Mg Tablet, 50 MG PO Q6H PRN for PAIN Prescribed by: AVA LIRIANO on 11/28/18 1342 Tramadol Hcl (Ultram) 50 Mg Tablet, 50 MG PO BID PRN for PAIN Prescribed by: GUIDO MCCORMACK on 11/15/14 1400 Warfarin Sodium (Warfarin Sodium) 5 Mg Tablet, 5 MG PO DAILY Prescribed by: AGUSTIN MANLEY on 01/18/23 1422 Review of Systems Constitutional: No chills, No diaphoresis EENTM: No ear pain, No blurred vision, No double vision Respiratory: No cough, No dyspnea on exertion Cardiovascular: No chest pain, No edema Gastrointestinal: No abdominal pain, No nausea, No vomiting Genitourinary: No decreased output, No discharge, No dysuria, No frequency Musculoskeletal: No back pain, No joint pain; muscle pain, other (leg swelling left) All Other Systems Reviewed Negative Unless Noted: Yes Past Mlynbpx-Ehtcdi-Ucncin Hx Patient Social History Tobacco Use?: No Substance use?: No Alcohol Use?: No Past Medical History Surgery/Hospitalization HX: DM2, dvt Eye Surgery, Gallbladder, Hysterectomy, Orthopedic Respiratory: No Cardiac: No Neurological: No (numbness to left leg) Reproductive Disorders: No Sexually Transmitted Disease: No Gastrointestinal: No Musculoskeletal: Yes Arthritis, Chronic Back Pain Endocrine: Yes Diabetes, Insulin dep, Hypothyroidsim Cancer: Yes Melanoma Psychosocial: Yes Depression Integumentary: Yes (LESION, RIGHT MID UPPER ARM) Blood Disorders: No Physical Exam Vital Signs Vital Signs - First Documented 01/18/23 11:28 Temp 36.2 Pulse 83 Resp 18 B/P (MAP) 181/77 (111) Pulse Ox 99 Capillary Refill : Less Than 3 Seconds Height, Weight, BMI Height: 5'2.00" Weight: 106lbs. 0oz. 48.687283ef; 18.00 BMI Method:Stated General Appearance: WD/WN, no apparent distress HEENT: PERRL/EOMI, normal ENT inspection, TMs normal, pharynx normal Neck: non-tender, full range of motion, supple Cardiovascular: regular rate, rhythm, no edema, no gallop, no JVD Respiratory: chest non-tender, lungs clear, normal breath sounds, no respiratory distress, no accessory muscle use Gastrointestinal: normal bowel sounds, non tender, soft, no organomegaly Back: normal inspection, no CVA tenderness Legs: left leg other (Left calf swelling with a abrasion to the left anterior tib-fib. No calf tenderness. Tenderness to palpate left lateral thigh. Normal active range of motion left ankle, left knee. Neurovascular intact. Slight delayed cap refill) Neurologic/Psychiatric: lacquer shader II-XII nml as tested, no motor/sensory deficits, alert, normal mood/affect, oriented x 3 Skin: other (Varicose veins left leg. Small superficial abrasion left anterior leg with localized erythema. No purulent drainage or fluctuant mass) Progress/Results/Core Measures Results/Orders Lab Results Laboratory Tests Test 01/18/23 11:45 Range/Units White Blood Count 7.5 4.3-11.0 10^3/uL Red Blood Count 3.38 L 3.80-5.11 10^6/uL Hemoglobin 10.0 L 11.5-16.0 g/dL Hematocrit 33 L 35-52 % Mean Corpuscular Volume 96 80-99 fL Mean Corpuscular Hemoglobin 30 25-34 pg Mean Corpuscular Hemoglobin Concent 31 L 32-36 g/dL Red Cell Distribution Width 13.7 10.0-14.5 % Platelet Count 171 130-400 10^3/uL Mean Platelet Volume 10.4 9.0-12.2 fL Immature Granulocyte % (Auto) 0 % Neutrophils (%) (Auto) 63 42-75 % Lymphocytes (%) (Auto) 22 12-44 % Monocytes (%) (Auto) 9 0-12 % Eosinophils (%) (Auto) 5 0-10 % Basophils (%) (Auto) 1 0-10 % Neutrophils # (Auto) 4.7 1.8-7.8 10^3/uL Lymphocytes # (Auto) 1.7 1.0-4.0 10^3/uL Monocytes # (Auto) 0.7 0.0-1.0 10^3/uL Eosinophils # (Auto) 0.4 H 0.0-0.3 10^3/uL Basophils # (Auto) 0.1 0.0-0.1 10^3/uL Immature Granulocyte # (Auto) 0.0 0.0-0.1 10^3/uL Prothrombin Time 14.8 H 12.2-14.7 SEC INR Comment 1.1 0.8-1.4 Activated Partial Thromboplast Time 41 H 24-35 SEC Sodium Level 137 135-145 MMOL/L Potassium Level 5.5 H 3.6-5.0 MMOL/L Chloride Level 108 H 98-107 MMOL/L Carbon Dioxide Level 22 21-32 MMOL/L Anion Gap 7 5-14 MMOL/L Blood Urea Nitrogen 42 H 7-18 MG/DL Creatinine 1.84 H 0.60-1.30 MG/DL Estimat Glomerular Filtration Rate 27 BUN/Creatinine Ratio 23 Glucose Level 240 H 70-105 MG/DL Calcium Level 9.1 8.5-10.1 MG/DL Corrected Calcium 9.1 8.5-10.1 MG/DL Total Bilirubin 0.5 0.1-1.0 MG/DL Aspartate Amino Transf (AST/SGOT) 18 5-34 U/L Alanine Aminotransferase (ALT/SGPT) 17 0-55 U/L Alkaline Phosphatase 41 40-136 U/L Total Protein 6.7 6.4-8.2 GM/DL Albumin 4.0 3.2-4.5 GM/DL My Orders Orders - GENESIS GARG Venous Lower Ext Lt (01/18/23 11:34) Cbc With Automated Diff (01/18/23 11:34) Comprehensive Metabolic Panel (01/18/23 11:34) Partial Thromboplastin Time (01/18/23 11:34) Protime With Inr (01/18/23 11:34) Insulin (Regular) Per Unit (Insulin (Reg (01/18/23 12:45) Enoxaparin Injection (01/18/23 14:15) Medications Given in ED Current Medications Medications Dose Ordered Sig/Cassandra Route Start Time Stop Time Status Last Admin Dose Admin Insulin Human Regular 5 unit ONCE ONCE SC 01/18/23 12:45 01/18/23 12:46 DC 01/18/23 13:04 5 UNIT Vital Signs/I&O 01/18/23 11:28 Temp 36.2 Pulse 83 Resp 18 B/P (MAP) 181/77 (111) Pulse Ox 99 Blood Pressure Mean: 111 Departure Communication (PCP) Patient is a 82-year-old female with a history of DVT left leg 5 years ago with a current IVC filter presents to ED with left leg pain and swelling started this morning. She was on Xarelto for 4 years. Injury to left anterior tib-fib in the garden 5 days ago. Local redness around this wound. Afebrile. No chest pain or shortness of breath. She is slightly hypertensive but no hypoxia or tachycardia. Generalized lab work with ultrasound the left leg. CBC showed normal white blood count. Hemoglobin 10. Potassium 5.5. Creatinine 1.84, GFR 27, BUN of 47, blood sugar 260. Slight elevated potassium. She does take insulin for her diabetes. Did give 5 mg of insulin here to help with her blood sugar as well as her potassium level. History of CKD. Appears to be within its normal limits today and near baseline. November 12 potassium 5.1. Concern for worsening chronic kidney disease. I do recommend follow-up with her primary care physician for further evaluation and recheck of potassium in 3 days. Ultra sound of the left lower lrg shows occlusive thrombus essentially involving the entire imaged left lower extremity venous vasculature with possible minimal flow in the left posterior tibial vein. She does have slight decreased cap refill left leg. Dorsalis pedis +2. Warm to touch. Normal active range of motion left knee left ankle and foot. No calf tenderness. Tenderness to left lateral thigh. Contacted and discussed patient with Dr. Montoya vascular surgeon at [facility] to see if patient is a candidate for thrombectomy. Case was evaluated with vascular surgery only recommend at this time anticoagulant and not transfer. Patient was discussed with Dr. Cardoza hospitalist on-call for Dr. Metcalf. At this time recommended due to her low creatinine clearance of 8 to start patient on Lovenox 50 mg subcutaneous once a day for 7 days and warfarin 5 mg daily and to be discharge. Check INR in 3 days. If increasing pain, chest pain, shortness of breath to return back to ED. there appears to be no contradictions for anticoagulants at this time. As she has no evidence of active bleeding, coagulopathy, recent major surgeries, major trauma or acute intracranial hemorrhage. Impression Primary Impression: DVT (deep venous thrombosis) Disposition: 01 HOME, SELF-CARE Condition: Stable Departure-Patient Inst. Decision time for Depature: 14:14 Referrals: ALLYSON METCALF MD (PCP/Family) Primary Care Physician Patient Instructions: Deep Vein Thrombosis (DVT) ED Add. Discharge Instructions: You will be taking 50 mg subcu Lovenox for 7 days only. You will take warfarin daily with the Lovenox and will continue after 7 days. Need to check your INR in 3 days with your primary care physician. Recommend continue monitoring your blood sugar and electrolytes. Potassium 5.5 today. if increasing pain, shortness of breath or chest pain to return back to ED All discharge instructions reviewed with patient and/or family. Voiced understanding. Scripts Enoxaparin Sodium (Lovenox) 60 Mg/0.6 Ml Syringe 50 MG SQ DAILY for 6 Days, #3 ML Prov: GENESIS GARG 01/18/23 Warfarin Sodium (Warfarin Sodium) 5 Mg Tablet 5 MG PO DAILY, #20 TAB Prov: GENESIS GARG 01/18/23 GENESIS GARG Jan 18, 2023 11:39
[2023-01-18 11:52] LABS: BASOPHILS # (AUTO) 0.1 10^3/uL (0.0-0.1); BASOPHILS % (AUTO) 1 % (0-10); EOSINOPHILS # (AUTO) 0.4 10^3/uL (0.0-0.3); EOSINOPHILS % (AUTO) 5 % (0-10); HEMATOCRIT 33 % (35-52); LYMPHOCYTES # (AUTO) 1.7 10^3/uL (1.0-4.0); LYMPHOCYTES % (AUTO) 22 % (12-44); MEAN CORPUSCULAR HEMOGLOBIN 30 pg (25-34); MEAN CORPUSCULAR HGB CONC 31 g/dL (32-36); MEAN CORPUSCULAR VOLUME 96 fL (80-99); MEAN PLATELET VOLUME 10.4 fL (9.0-12.2); MONOCYTES # (AUTO) 0.7 10^3/uL (0.0-1.0); MONOCYTES % (AUTO) 9 % (0-12); NEUTROPHILS # (AUTO) 4.7 10^3/uL (1.8-7.8); NEUTROPHILS % (AUTO) 63 % (42-75); PLATELET COUNT 171 10^3/uL (130-400); WHITE BLOOD COUNT 7.5 10^3/uL (4.3-11.0)
[2023-01-18 12:04] LABS: INR 1.1 (0.8-1.4); PROTHROMBIN TIME PATIENT 14.8 SEC (12.2-14.7)
[2023-01-18 12:13] LABS: BILIRUBIN,TOTAL 0.5 MG/DL (0.1-1.0); CALCIUM 9.1 MG/DL (8.5-10.1); CREATININE SERUM 1.84 MG/DL (0.60-1.30); POTASSIUM 5.5 MMOL/L (3.6-5.0); TOTAL PROTEIN 6.7 GM/DL (6.4-8.2)
[2023-01-18] MEDS ORDERED: inSUlin (REGULAR) HUMAN 1 UNIT/0.01 ML (CHARGE PER UNIT) SC ONE (12:45)
--- NOTE | 2023-01-18 13:20 | Diagnostic Imaging Report ---
PROCEDURE: US left lower extremity venous. TECHNIQUE: Multiple Real-time grayscale images were obtained over the left lower extremity in various projections. Additional duplex Doppler and color Doppler images were also obtained. DATE: January 18, 2023. INDICATION: 82-year-old female, left lower extremity pain. COMPARISON: Venous Doppler ultrasound November 03, 2018. FINDINGS: There is abnormal echogenicity and incomplete compressibility of the left common femoral vein which is without demonstrated blood flow, compatible with occlusive thrombus. There is no demonstrated blood flow in the imaged portions of the left greater saphenous or deep femoral veins. The left superficial femoral vein is also occluded throughout its extent. There is also occlusive thrombus in the left popliteal vein. There is questionable minimal blood flow in the left posterior tibial vein. The left peroneal vein is occluded. IMPRESSION: Occlusive thrombus essentially involving the entire imaged left lower extremity venous vasculature with possible minimal flow in the left posterior tibial vein. Dictated by: Dictated on workstation # [id number]
[2023-01-18] MEDS ORDERED: ENOXAPARIN 60 MG/0.6 ML SYRINGE SC ONE (14:15)
[2023-01-18] MEDS ORDERED: WARF-48 PO (14:22)
[2023-01-18] MEDS ORDERED: ENOX60DI12 SQ (14:22)
[2023-01-18 14:39] VITALS: BP 181/77
== END 2023-01-18 14:39 | disposition home or self-care (01) ==
LOC: EDUNIT# 11:17 → ER 11:18
DX: I82.402 Acute embolism and thrombosis of unspecified deep veins of left lower extremity (principal); E11.9 Type 2 diabetes mellitus without complications; Z79.4 Long term (current) use of insulin; Z79.01 Long term (current) use of anticoagulants
CPT/HCPCS: 36415; 80053; 85025; 85610; 85730